=== PATIENT | female | born 1995 | race Caucasian/White ===

== ENCOUNTER 2022-09-18 16:40 | Inpatient (IN) | payer SELFPAY, OTHER ==
[2022-09-18] VITALS (33 sets, daily range): BP systolic 114–135; BP diastolic 53–86; PULSE 88–105; RESP 16–21; TEMP 36.7–37.5; O2SAT 91–99; BMI 30.7
[2022-09-18 17:12] LABS: Absolute Lymphocyte Count 1.02 X10^3/uL (0.83-4.51); Basophil# 0.06 X10^3/uL; Basophil% 0.2 % (0-1); Eosinophils% 5.8 % (0-5); Hemoglobin 15.1 g/dL (12.0-15.0); Lymphocyte # 1.02 X10^3/ul (0.83-4.51); Lymphocyte % 3.1 % (19-41); Mean Corp Hgb Conc 35.1 g/dL (32-36); Mean Corpuscular Hgb 30.1 pg (27.0-32.0); Mean Corpuscular Volume 85.7 fL (81-99); Mean Platelet Vol. 9.5 fl (6.2-12.0); Monocyte# 1.25 X10^3/uL; Monocyte% 3.8 % (0-10); NRBC Flagged by Analyzer 0 % (0-5); Neutrophil # 27.96 X10^3/uL (2.7-7.7); Neutrophil % 85.4 % (47-70); POSITIVE COUNT YES; POSITIVE DIFFERENTIAL YES; POSITIVE MORPHOLOGY YES; Platelet Count 300 K/mm3 (150-450); RBC Distribution Width CV 12.6 % (11.6-14.6); Red Blood Count 5.02 M/mm3 (4.2-5.4)
[2022-09-18] MEDS: Lactated Ringers 1,000 ML 999 ML IV (17:20)
--- NOTE | 2022-09-18 17:28 | HP.PCM.OB_ITS ---
HPI - General General Date of Admission: 09/18/22 Date of Service: 09/18/22 Chief Complaint: Pushing x 3 hours HPI Narrative MARION COLINDRES, is a 26 F at 42 wga by stated RUBEN (09/04/22) accompanied by her medicine and health service manager Barbara Soto after pushing x 3 hours with no delivery. She has been in labor since 5pm 09/17/22 with rupture of membranes at midnight. + FM Maternal Data Information Final RUBEN: 09/04/22 Gestational age: 42 weeks 0 days PFSH PFSH Medical History no medical history no medical history Home Medications [id number] 1 mg tablet 1 tab PO DAILY 09/18/22 [History Last Taken 09/17/22] Allergy/AdvReac Type Severity Reaction Status Date / Time bee venom protein (honey bee) Allergy Hives Verified 09/18/22 16:51 [bee stings] Family History Mother Hypertension Mother Diabetes Surgical History History of hip surgery Social History Smoking Status: Never smoker History Elective abortions Hx Para 0 Spontaneous abortions Hx # Term Pregnancies Ectopic pregnancies Hx # Pregnancies Multiple births # of living children NST FHR Rate Baby A Baseline: 150 Variability:: Minimal Accelerations:: 15 x 15 Decelerations:: Variable NST Reactive:: Yes FHR Category:: Category I Uterine Activity:: 3/10 min ROS Constitutional Constitutional: Denies fever(s) Eyes Eyes: Denies change in vision Neurologic Neurologic: Denies headache(s) Vital Signs Vital Signs Vital Signs: 09/18/22 17:02 09/18/22 17:02 09/18/22 17:03 Temperature Temperature Source Pulse Rate 94 99 Blood Pressure 129/86 H BP Systolic 129 BP Diastolic 86 Pulse Ox 09/18/22 17:03 09/18/22 17:02 09/18/22 17:03 Temperature Temperature Source Temporal Pulse Rate 97 Blood Pressure BP Systolic BP Diastolic Pulse Ox 91 09/18/22 17:03 09/18/22 17:02 Temperature 98.5 F Temperature Source Pulse Rate Blood Pressure BP Systolic BP Diastolic Pulse Ox 98 Weight Weight: 99.79 kg Body Mass Index (BMI) 30.7 Physical Exam GI soft to palpation, non-tender and non-distended Inspection: gravid Narrative: SVE 10/100/+1, OA Extremity normal to inspection, no calf tenderness and no pedal edema Neuro moves all extremities Neuro Narrative: no gross motor deficits Psych mental status grossly normal and affect normal Labs Labs Labs: Blood Type Pending Antibody Screen Pending Hct Pending Hgb Pending Syphilis Total Ab Pending Rubella IgG Antibody Pending Hep Bs Antigen Pending HIV 1&2 Antibody Pending Group B Strep DNA Pending Assessment & Plan (1) 42 weeks gestation of : PLAN: Rh positive Additional labs ordered (2) Labor abnormality, antepartum: COMMENT: Prolonged second stage PLAN: Cat II FHR, accelerations present and positive response to scalp stimulation. Patient not candidate for vacuum assistance at this time. Discussed with patient continued trial of labor with consideration of epidural and vacuum assistance as indicated for delivery versus section at this time. r/b HEIDI reviewed, as well as benefits and risks including but not limited to pain, bleeding/hemorrhage, infection, injury to surrounding organs, need for further surgery such as curettage or hysterectomy, scarring. Patient opts to proceed with section. Informed consent obtained.
[2022-09-18 17:34] LABS: White Blood Count 32.8 K/mm3 (4.4-11.0)
[2022-09-18 17:35] LABS: Differential Indicated SCAN CRITERIA MET
[2022-09-18] MEDS: Sodium Citrate/Citric Acid 30 ML UDC PO (17:36)
[2022-09-18] MEDS: Acetaminophen 500 MG Tablet 1000 MG PO ×2 (17:36→23:19)
[2022-09-18] MEDS: Cefazolin 2 GM in 0.9% Normal Saline 100 ML IV (18:27)
[2022-09-18 18:41] LABS: Differential Comment SCANNED
[2022-09-18 18:48] LABS: Group B Strep DNA By PCR Negative (Negative); Internal Control PASS; Probe Check PASS; Specimen Processing Control PASS
[2022-09-18] MEDS: Oxytocin 15 Units/NS 250ml 15 UNITS/250 ML IV.SOLN 83 UNITS IV (19:14)
--- NOTE | 2022-09-18 19:16 | EX.PCM.OBRPT ---
Assessment & Plan (1) delivery delivered: Maternal Data Information Gestational age: 42 weeks 0 days Doctor Who Attended Delivery: ReyLula Details Operative Information Date of Procedure: 09/18/22 Pre-Operative Diagnosis: 1. 42 weeks gestation 2. Prolonged second stage Post-Operative Diagnosis: 1. 42 weeks gestation 2. Prolonged second stage 3. Occiput posterior 4. Asynclitism Indications for : Failure to Progress Indications Narrative: 26yo G1 @ 42 wga brought in by her meat packager after pushing x 3 hours. She was counseled and opted to proceed with section for delivery. Informed consent was obtained. Classification: TRAMAINE Procedure Type: low transverse (with lower segment T extension) tool trouble shooter #1: Angelia Lundberg Type of Anesthesia: Spinal Anesthesiologist: Dayron Rush Antibiotic Given: Ancef 2 grams IV x1 and Zithromax 500 mg/5 mL X1 Drain: Reilly to straight drain Estimated Blood Loss: 700 ml Procedure Start Time: 18:17 Procedure Stop Time: 18:57 Time of Delivery: 18:26 Findings Description of Procedure: The patient was taken to the operating room and spinal analgesia was administered. She is placed in a dorsal supine position with FHR 156 bpm. The perineum and abdomen were prepped and draped in sterile fashion. And the spinal was found to be adequate. A Pfannenstiel incision was made using a scalpel and brought down to incise the subcutaneous tissue and rectus fascia at the midline. Subcutaneous tissue was bluntly dissected off the fascia laterally. The fascial incision was dissected laterally and cephalad using curved Recio scissors. The superior leaflet of the rectus fascia was grasped using Jolynn clamps and bluntly dissected and sharply dissected from the underlying rectus muscle. In a similar fashion the inferior rectus fascia was dissected from the underlying muscle. The rectus muscles were bluntly at the midline. The peritoneum was identified and entered [sharply]. The bladder blade was placed into the abdomen and the vesicouterine peritoneal fold identified. The fold was incised and a bladder flap created. Bladder blade was then repositioned to the abdomen. A low transverse hysterotomy was made using the [Metzenbaum scissors] to level of the membranes. The hysterotomy was extended bluntly cephalad and caudad. The membranes were then ruptured revealing clear fluid. The head was impacted in the pelvis. Manual head elevation transvaginally was performed by an medical record assistant and the head slowly elevated. A midline extension of the lower uterine segment was made with the bandage scissor. The head was brought to the level of the hysterotomy and the delivered revealing a [female] infant. The infant was stimulated and the cord was doubly clamped and cut. The infant was passed to awaiting [nursery personnel] and Pediatric Hospitalist. The placenta was [expressed] from the uterus and appeared intact on inspection. The uterus was cleared of debris and exteriorized. The hysterotomy was then repaired using 0 Vicryl running lock suture with a second suture used to reapproximate the extension. The extension did not meet the cervix. The posterior culdesac was cleared of debris. The bladder blade was removed and the uterus and adnexae were returned to the abdomen. Heide was placed for additional hemostasis. The peritoneum was reapproximated using 2-0 Vicryl running suture. The rectus fascia was closed using 0 Stratafix running suture. The subcutaneous tissue was reapproximated using 2-0 Vicryl. The skin was closed using 4-0 Monocryl subcuticularly. A Mepilex Silver occlusive dressing was placed over the incision. The fundus was firm. The patient was then transferred to the recovery room without complication. Sponge, instrument, and needle counts were correct ?2. Presentation: Positive for Vertex Amniotic Membrane Rupture Type: Spontaneous Time of Membrane Ruptured: 0000 09/18/22 Cord Vessel Description: 3 Vessels Cord Entanglement: None Nuchal Cord Compression: Without compression Cord Gases: ABG and VBG A Gender: Female (1 minute): 7 (5 minute): 9 Delayed Cord Clamping: No Complications Risks of Surgery Discussed w/Patient: Bleeding, Anesthesia Risks, Infection, Failure Rate of 1 to 2%, Injury to surrounding structure(s) including bowel and bladder and - Procedures Urinary/Genital [id number]: [id number] delivery+ Care([facility])
[2022-09-18] MEDS: Ketorolac 30 MG/ML Syringe IV (19:56)
[2022-09-18 20:35] LABS: HIV - WCH Non-Reactive (Nonreactive); Hepatitis B Surface Antigen Non-Reactive (Nonreactive); Hepatitis C Antibody Non-Reactive (Nonreactive); Rubella IgG Reactive (Nonreactive); Syphilis Antibodies Non-reactive
[2022-09-18 20:42] LABS: Bacteria 0 SEEN /hpf (None Seen); Mucous, Urine 0 SEEN /hpf (<or=2+)
--- NOTE | 2022-09-18 21:20 | NURSING ---
bedside report given to Steve Saavedra RN who is assuming care of pt at this time
[2022-09-18 22:07] LABS: Color, Urine Amber (Yellow); Glucose, Dipstick 50 mg/dl (Normal); Leukocyte Esterase-Dipstick 25 /ul (Negative); Nitrite-Dipstick Negative (Negative); Occult Blood-Urine 250 /ul (Negative); Protein-Dipstick 100 mg/dl (Negative); Specific Gravity, Urine 1.025 (1.002-1.030); Urine Bilirubin Dipstick Negative (Negative); Urine Clarity Turbid (Clear); Urine Urobilinogen Normal (Normal)
[2022-09-18 22:12] LABS: Ketone-Dipstick 150 mg/dl (Negative)
[2022-09-18] MEDS: Lactated Ringers 1,000 ML 100 ML IV (22:20)
[2022-09-18 22:37] LABS: Red Blood Cells-Urine > 100 SEEN /hpf (0-5)
[2022-09-18 22:38] LABS: White Blood Cells 5-10 SEEN /hpf (0-5)
[2022-09-18 22:43] LABS: Squamous Epithelial Cells - UA 5-10 SEEN /hpf (5-10)
[2022-09-19] VITALS (13 sets, daily range): BP systolic 109–131; BP diastolic 57–68; PULSE 93–113; RESP 16–18; TEMP 36.6–37.1; O2SAT 96–97
[2022-09-19] MEDS: Cefazolin 1 GM/50 ML BAG IV ×2 (00:49→08:19)
[2022-09-19] MEDS: Ketorolac 30 MG/ML Syringe IV ×3 (01:45→14:40)
[2022-09-19] MEDS: 0.9% Saline Lock 10 ML Syringe IV ×3 (04:51→14:40)
--- NOTE | 2022-09-19 04:52 | PN.OBGYN_ITS ---
Subjective Subjective Reports doing well. Not yet OOB. No flatus yet. Tolerates PO without nausea or vomiting. Denies heavy lochia. Pain is minimal. She is and notes latch is best with a nipple shield. Objective Data Objective Data Vital Signs: Vital Signs Temp Pulse Resp BP Pulse Ox O2 Del Method 98.0 F 93 17 109/57 L 96 Room Air 09/18/22 23:25 09/19/22 03:30 09/19/22 03:30 09/19/22 03:30 09/19/22 03:30 09/19/22 03:30 Oxygen Delivery Method Room Air Weight: 99.79 kg Body Mass Index (BMI) 30.7 Intake & Output: Intake and Output for Last 24 Hours 09/17/22 09/18/22 09/19/22 23:59 23:59 23:59 Intake Total 1211.13 / 1211.13 50 / 50 Output Total 330 / 330 300 / 300 Balance 881.13 / 881.13 -250 / -250 Lab / Micro Data Attestation: I reviewed the patient's lab results. Result Diagrams: 09/18/22 16:55 Labs: Laboratory Results - last 24 hr 09/18/22 16:55: WBC 32.8 H*, RBC 5.02, Hgb 15.1 H, Hct 43.0, MCV 85.7, MCH 30.1, MCHC 35.1, RDW Std Deviation 39.0, RDW Coeff of Maria Esther 12.6, Plt Count 300, MPV 9.5, Immature Gran % (Auto) 1.700 H, Neut % (Auto) 85.4 H, Lymph % (Auto) 3.1 L, [place] % (Auto) 3.8, Eos % (Auto) 5.8 H, Baso % (Auto) 0.2, Absolute Neuts (auto) 28.0 H, Absolute Lymphs (auto) 1.02, Nucleated RBC % 0, Differential Comment SCANNED, Diff Path Review January09/18/22 16:55: Syphilis Total Ab Non-reactive, Rubella IgG Antibody Reactive 09/18/22 16:55: Blood Type A POSITIVE, Antibody Screen NEGATIVE 09/18/22 16:55: Hep Bs Antigen Non-Reactive, Hepatitis C Antibody Non-Reactive, HIV 1&2 Antibody Non-Reactive 09/18/22 17:05: Group B Strep DNA Negative, Specimen Comment Not Reportable 09/18/22 20:20: Urine Color Margot, Urine Clarity Turbid, Urine pH 6.0, Ur Specific [place] 1.025, Urine Protein 100 H, Urine Glucose (UA) 50 H, Urine Ketones 150 A*, Urine Occult Blood 250 H, Urine Nitrite Negative, Urine Bilirubin Negative, Urine Urobilinogen Normal, Ur Leukocyte Esterase 25 H, Urine RBC > 100 SEEN, Urine WBC 5-10 SEEN, Ur Squamous Epith Cells 5-10 SEEN, Urine Bacteria 0 SEEN, Urine Mucus 0 SEEN Physical Exam Const alert, oriented x3 and no apparent distress Resp normal respiratory effort, normal air movement and clear to auscultation bilaterally Cardio regular rate, regular rhythm, S1 normal heart sound and S2 normal heart sound GI normal to inspection, nondistended, normoactive bowel sounds, soft to palpation, non-tender and non-distended Manual OB Exam: other lochia scant Uterus Palpation: uterus fundus firm (3 FW above umbilicus) Extremity no calf tenderness and no pedal edema Assessment & Plan (1) delivery delivered: PLAN: Routine postop care f/u CBC this am d/c barkley, ambulation encouraged
[2022-09-19 05:05] LABS: Hemoglobin 12.2 g/dL (12.0-15.0); Mean Corpuscular Hgb 28.8 pg (27.0-32.0); Mean Corpuscular Volume 87.3 fL (81-99); Mean Platelet Vol. 9.4 fl (6.2-12.0); Platelet Count 228 K/mm3 (150-450); RBC Distribution Width CV 12.8 % (11.6-14.6); RBC Distribution Width SD 40.2 fl (35.1-43.9); Red Blood Count 4.24 M/mm3 (4.2-5.4); White Blood Count 21.8 K/mm3 (4.4-11.0)
[2022-09-19] MEDS: Acetaminophen 500 MG Tablet 1000 MG PO ×3 (05:23→17:31)
--- NOTE | 2022-09-19 05:46 | NURSING ---
Duramorph checks documented under vital sign tab- only q12h duramorph
[2022-09-19] MEDS: Prenatal Vits Tablet 1 TABLET PO (11:00)
[2022-09-19] MEDS: Senna/Docusate Sodium 1 Tablet PO (11:00)
--- NOTE | 2022-09-19 17:10 | NURSING ---
Pt barkley catheter had been removed at 0505 this AM. Pt tried twice this morning to unitate without success and was informed of st. cath. option/order. She decided at 1230 that she would like the st[address] cath. and was st. cathed. for 700cc concentrated urine. Encouraged to drink more water.
--- NOTE | 2022-09-19 17:14 | NURSING ---
pt at this time has tried again to void without success. Now encouraged to try when she's in the shower.
[2022-09-19] MEDS: Ibuprofen 600 MG Tablet PO (20:08)
[2022-09-20] MEDS: Acetaminophen 500 MG Tablet 1000 MG PO ×3 (00:16→11:42)
[2022-09-20 02:37] VITALS: BP 119/72; PULSE 85
[2022-09-20 02:38] VITALS: BP 119/72; PULSE 85; RESP 16; TEMP 36.4
[2022-09-20] MEDS: Ibuprofen 600 MG Tablet PO ×2 (02:39→08:24)
[2022-09-20 06:23] LABS: Absolute Lymphocyte Count 1.81 X10^3/uL (0.83-4.51); Absolute Neutrophil Count 15.8 X10^3/uL (2.0-7.7); Basophil# 0.04 X10^3/uL; Basophil% 0.2 % (0-1); Eosinophil# 0.45 X10^3/uL; Eosinophils% 2.3 % (0-5); Hematocrit 33.2 % (37-47); Hemoglobin 11.1 g/dL (12.0-15.0); Lymphocyte # 1.81 X10^3/ul (0.83-4.51); Lymphocyte % 9.4 % (19-41); Mean Corp Hgb Conc 33.4 g/dL (32-36); Mean Corpuscular Hgb 30.1 pg (27.0-32.0); Mean Platelet Vol. 9.3 fl (6.2-12.0); Monocyte# 0.99 X10^3/uL; Monocyte% 5.1 % (0-10); NRBC Flagged by Analyzer 0 % (0-5); Neutrophil # 15.76 X10^3/uL (2.7-7.7); Neutrophil % 81.8 % (47-70); Platelet Count 210 K/mm3 (150-450); RBC Distribution Width SD 42.4 fl (35.1-43.9); Red Blood Count 3.69 M/mm3 (4.2-5.4); White Blood Count 19.3 K/mm3 (4.4-11.0)
--- NOTE | 2022-09-20 06:32 | PN.OBGYN_ITS ---
Subjective Subjective Rufina is sore this morning, but reports pain is manageable. She is out of bed, ambulating without difficulty. Passing flatus. No bowel movement yet. Voiding. Denies headache, vision changes, shortnes of breath or chest pain. She continues nursing with [facility]. Objective Data Objective Data Vital Signs: Vital Signs Temp Pulse Resp BP Pulse Ox O2 Del Method 97.6 F L 85 16 119/72 97 Room Air 09/20/22 02:38 09/20/22 02:38 09/20/22 02:38 09/20/22 02:38 09/19/22 20:05 09/20/22 02:38 Oxygen Delivery Method Room Air Weight: 99.79 kg Body Mass Index (BMI) 30.7 Intake & Output: Intake and Output for Last 24 Hours 09/18/22 09/19/22 09/20/22 23:59 23:59 23:59 Intake Total 1211.13 / 1211.13 753.33 / 753.33 Output Total 330 / 330 2250 / 2250 Balance 881.13 / 881.13 -1496.67 / -1496.67 Lab / Micro Data Result Diagrams: 09/20/22 06:08 Labs: Laboratory Results - last 24 hr 09/20/22 04:35: WBC Cancelled, Corrected WBC Cancelled, RBC Cancelled, Hgb Cancelled, Hct Cancelled, MCV Cancelled, MCH Cancelled, MCHC Cancelled, RDW Std Deviation Cancelled, RDW Coeff of Maria Esther Cancelled, Plt Count Cancelled, MPV Cancelled, Immature Gran % (Auto) Cancelled, Neut % (Auto) Cancelled, Lymph % (Auto) Cancelled, [place] % (Auto) Cancelled, Eos % (Auto) Cancelled, Baso % (Auto) Cancelled, Absolute Neuts (auto) Cancelled, Absolute Lymphs (auto) Cancelled, Total Counted Cancelled, Neutrophils % (Manual) Cancelled, Band Neutrophils % Cancelled, Lymphocytes % (Manual) Cancelled, Monocytes % (Manual) Cancelled, Eosinophils % (Manual) Cancelled, Basophils % (Manual) Cancelled, Metamyelocytes % Cancelled, Myelocytes % Cancelled, Promyelocytes % Cancelled, Blast Cells % Cancelled, Plasma Cell % (Manual) Cancelled, Other Cells % Cancelled, Nucleated RBC % Cancelled, Nucleated RBCs/100 WBC Cancelled, Differential Comment Cancelled, Diff Path Review Cancelled, Hypersegmented Neuts Cancelled, Atypical Lymphocytes Cancelled, Reactive Lymphocytes Cancelled, Smudge Cells Cancelled, Toxic Granulation Cancelled, Toxic Vacuolation Cancelled, Dohle Bodies Cancelled, Tessa Rods Cancelled, Platelet Estimate Cancelled, Plt Morphology Comment Cancelled, RBC Morphology Cancelled, Polychromasia Cancelled, Hypochromasia Cancelled, Poikilocytosis Cancelled, Basophilic Stippling Cancelled, Anisocytosis Cancelled, Microcytosis Cancelled, Macrocytosis Cancelled, Spherocytes Cancelled, Sickle Cells Cancelled, Target Cells Cancelled, Tear Drop Cells Cancelled, Ovalocytes Cancelled, Stomatocytes Cancelled, [place] Bodies Cancelled, [place] Cells Cancelled, Bite Cells Cancelled, Crenated Cell Cancelled, Acanthocytes (Spur) Cancelled, Rouleaux Can celled, Schistocytes Cancelled 09/20/22 06:08: WBC 19.3 H, RBC 3.69 L, Hgb 11.1 L, Hct 33.2 L, MCV 90.0, MCH 30.1, MCHC 33.4, RDW Std Deviation 42.4, RDW Coeff of Maria Esther 13.0, Plt Count 210, MPV 9.3, Immature Gran % (Auto) 1.200 H, Neut % (Auto) 81.8 H, Lymph % (Auto) 9.4 L, [place] % (Auto) 5.1, Eos % (Auto) 2.3, Baso % (Auto) 0.2, Absolute Neuts (auto) 15.8 H, Absolute Lymphs (auto) 1.81, Nucleated RBC % 0 Physical Exam Const alert, oriented x3 and no apparent distress Resp normal respiratory effort, normal air movement and clear to auscultation bilaterally Cardio regular rate, regular rhythm, S1 normal heart sound and S2 normal heart sound GI normal to inspection, nondistended, normoactive bowel sounds, soft to palpation, non-tender and non-distended GI Narrative: incisional dressing c/d/i Manual OB Exam: other lochia scant Uterus Palpation: uterus fundus firm Extremity no calf tenderness Extremity Narrative: trace pedal edema bilaterally Assessment & Plan (1) delivery delivered: PLAN: POD#2 s/p PLTCS doing well Rh positive Routine postop care d/c home later today
--- NOTE | 2022-09-20 06:35 | PCM.DC.SUM ---
Providers Date of Admission: 09/18/22 Date of Discharge: 09/20/22 Primary Care Physician: No Primary Care Phys Reason For Visit: LABOR AND DELIVERY Diagnosis Discharge Diagnosis (1) delivery delivered: Status: Acute Code(s): O82 - Encounter for delivery without indication Plan: POD#2 s/p PLTCS doing well Rh positive Routine postop care d/c home later today Medications at Discharge Home Medications [id number] 1 mg tablet 1 tab PO DAILY 09/18/22 ibuprofen 600 mg tablet 600 mg PO Q8H PRN PRN pain #30 tabs 09/20/22 oxycodone 5 mg tablet 5 mg PO Q6H PRN severe 3 days #8 tabs 09/20/22 Hospital Course Operations section Procedures None Summary of Care Provided Hospital Course: 26yo G1 admitted at 42weeks gestation for prolonged second stage. She underwent a section. Her postoperative course was unremarkable and patient was discharged to home on postop day #2. Physical Exam Const alert, oriented x3 and no apparent distress Resp normal respiratory effort, normal air movement and clear to auscultation bilaterally Cardio regular rate, regular rhythm, S1 normal heart sound and S2 normal heart sound GI normal to inspection, nondistended, normoactive bowel sounds, soft to palpation, non-tender and non-distended GI Narrative: incisional dressing c/d/i Manual OB Exam: other lochia scant Uterus Palpation: uterus fundus firm Extremity no calf tenderness and no pedal edema Psych mental status grossly normal Weight / BMI Weight Weight: 99.79 kg Body Mass Index (BMI) 30.7 ABG / Lab / Microbiology Data Result Diagrams: 09/20/22 06:08 Laboratory: Laboratory Results - last 24 hr 09/20/22 04:35: WBC Cancelled, Corrected WBC Cancelled, RBC Cancelled, Hgb Cancelled, Hct Cancelled, MCV Cancelled, MCH Cancelled, MCHC Cancelled, RDW Std Deviation Cancelled, RDW Coeff of Maria Esther Cancelled, Plt Count Cancelled, MPV Cancelled, Immature Gran % (Auto) Cancelled, Neut % (Auto) Cancelled, Lymph % (Auto) Cancelled, [place] % (Auto) Cancelled, Eos % (Auto) Cancelled, Baso % (Auto) Cancelled, Absolute Neuts (auto) Cancelled, Absolute Lymphs (auto) Cancelled, Total Counted Cancelled, Neutrophils % (Manual) Cancelled, Band Neutrophils % Cancelled, Lymphocytes % (Manual) Cancelled, Monocytes % (Manual) Cancelled, Eosinophils % (Manual) Cancelled, Basophils % (Manual) Cancelled, Metamyelocytes % Cancelled, Myelocytes % Cancelled, Promyelocytes % Cancelled, Blast Cells % Cancelled, Plasma Cell % (Manual) Cancelled, Other Cells % Cancelled, Nucleated RBC % Cancelled, Nucleated RBCs/100 WBC Cancelled, Differential Comment Cancelled, Diff Path Review Cancelled, Hypersegmented Neuts Cancelled, Atypical Lymphocytes Cancelled, Reactive Lymphocytes Cancelled, Smudge Cells Cancelled, Toxic Granulation Cancelled, Toxic Vacuolation Cancelled, Dohle Bodies Cancelled, Tessa Rods Cancelled, Platelet Estimate Cancelled, Plt Morphology Comment Cancelled, RBC Morphology Cancelled, Polychromasia Cancelled, Hypochromasia Cancelled, Poikilocytosis Cancelled, Basophilic Stippling Cancelled, Anisocytosis Cancelled, Microcytosis Cancelled, Macrocytosis Cancelled, Spherocytes Cancelled, Sickle Cells Cancelled, Target Cells Cancelled, Tear Drop Cells Cancelled, Ovalocytes Cancelled, Stomatocytes Cancelled, [place] Bodies Cancelled, Aditya Cells Cancelled, Bite Cells Cancelled, Crenated Cell Cancelled, Acanthocytes (Spur) Cancelled, Rouleaux Cancelled, Schistocytes Cancelled 09/20/22 06:08: WBC 19.3 H, RBC 3.69 L, Hgb 11.1 L, Hct 33.2 L, MCV 90.0, MCH 30.1, MCHC 33.4, RDW Std Deviation 42.4, RDW Coeff of Maria Esther 13.0, Plt Count 210, MPV 9.3, Immature Gran % (Auto) 1.200 H, Neut % (Auto) 81.8 H, Lymph % (Auto) 9.4 L, [place] % (Auto) 5.1, Eos % (Auto) 2.3, Baso % (Auto) 0.2, Absolute Neuts (auto) 15.8 H, Absolute Lymphs (auto) 1.81, Nucleated RBC % 0 D/C Instructions Discharge Diet: No restrictions Discharge Activity: Return to Normal Activity, May Shower and May Take a Tub Bath (No tub bath for 2 weeks) May resume sexual activity in: 4-6 weeks Lifting Restricted to (Lbs): 10 Call your doctor if your incision/area has: Continuous Slow Oozing, Increased Pain/ Swelling, Increased Redness, Foul Smelling Discharge and Swelling at the incision site Call your doctor if you observe: Fever of 101 or Higher, Inability to urinate, Inability to have a bowel movement, Using more than 1 pad per hour, Shortness of breath, Chest pain, Increased palpitations (irregular heartbeat), Calf discomfort and Uncontrolled pain Remove Dressing in: 3 days Cleanse incision/area with: Soap & Water Please Follow Up With: Suzy Polanco MD When: 1-2 weeks for incision check Meaningful Use Info Meaningful Use Diagnoses (Choose all that apply): None applicable Discharge Plan Admission Admit Date/Time: 09/18/22 16:40 Primary Reason for Your Visit: section Attending Provider: Suzy Polanco Primary Care Provider: Care Physician,No Primary Instructions Patient Instructions: Section Dc Discharge Orders/Prescriptions Prescriptions: New ibuprofen 600 mg Tablet 600 mg PO Q8H PRN PRN (Reason: pain) Qty: 30 0RF oxycodone 5 mg Tablet 5 mg PO Q6H PRN 3 Days Qty: 8 0RF Continued [id number]-job-[id number]-FA 1 mg Tablet 1 tab PO DAILY Referrals / Follow Up: Care Physician,No Primary [Primary Care Provider] - Disposition Disposition (needs filled in before D/C Order can be placed): Home, Self Care Charges/Coding Procedures Urinary/Genital [id number]: [id number] delivery+ Care([facility])
[2022-09-20 08:25] VITALS: BP 115/69; PULSE 82; RESP 15; TEMP 36.4; O2SAT 98
[2022-09-20 08:27] VITALS: BP 115/69; PULSE 86
[2022-09-20] MEDS: Senna/Docusate Sodium 1 Tablet PO (09:13)
--- NOTE | 2022-09-20 11:05 | NURSING ---
MOB reported to this RN that she is going to follow up with DAVID Soto at [facility] for her initial OB appointment. She reported to this RN that she is only going to follow up with Dr. Suzy Forbes if she is having incisional troubles and she reports that she also made Dr. Suzy Forbes aware of this.
[2022-09-20] MEDS: Prenatal Vits Tablet 1 TABLET PO (11:42)
[2022-09-20 12:47] VITALS: BP 127/73; PULSE 91; O2SAT 98
[2022-09-20 12:48] VITALS: BP 127/73; PULSE 91; RESP 15; TEMP 36.6; O2SAT 98
[2022-09-21 09:33] LABS: Pathologist Review Reviewed
[2022-09-22 04:07] LABS: Chlamydia By Nucleic Acid AMP Negative (Negative)
[2022-09-23 18:24] LABS: Gonococcus By Nucleic Acid AMP Negative (Negative)
== END 2022-09-20 13:45 | disposition home or self-care (01) | DRG 788 ==
PROVIDERS: Admitting Provider Obstetrics & Gynecology; Visit Provider Obstetrics & Gynecology
DX: O63.1 Prolonged second stage (of labor) (principal); O69.2XX0 Labor and delivery complicated by other cord entanglement, with compression, not applicable or unspecified; Z37.0 Single live birth; Z3A.42 42 weeks gestation of pregnancy
CPT/HCPCS: 59025; 59050; 81001; 85025; 85027; 86703; 86762; 86780; 86803; 86850; 86900; 86901; 87081; 87340; 87491; 87591; 87653; 99221; J7120; A4216; G0378

== ENCOUNTER → 2023-09-04 | Outpatient (CLI) | payer OTHER, SELFPAY ==
[2023-09-04 10:10] LABS: Absolute Lymphocyte Count 1.63 X10^3/uL (0.83-4.51); Absolute Neutrophil Count 6.1 X10^3/uL (2.0-7.7); Basophil# 0.03 X10^3/uL; Basophil% 0.4 % (0-1); Eosinophil# 0.05 X10^3/uL; Eosinophils% 0.6 % (0-5); Hematocrit 40.9 % (37-47); Hemoglobin 13.2 g/dL (12.0-15.0); Lymphocyte # 1.63 X10^3/ul (0.83-4.51); Lymphocyte % 19.5 % (19-41); Mean Corp Hgb Conc 32.3 g/dL (32-36); Mean Corpuscular Hgb 27.8 pg (27.0-32.0); Mean Corpuscular Volume 86.3 fL (81-99); Mean Platelet Vol. 9.9 fl (6.2-12.0); Monocyte# 0.55 X10^3/uL; Monocyte% 6.6 % (0-10); NRBC Flagged by Analyzer 0 % (0-5); Neutrophil # 6.09 X10^3/uL (2.7-7.7); Neutrophil % 72.5 % (47-70); Platelet Count 303 K/mm3 (150-450); RBC Distribution Width CV 11.9 % (11.6-14.6); RBC Distribution Width SD 37.8 fl (35.1-43.9); Red Blood Count 4.74 M/mm3 (4.2-5.4); White Blood Count 8.4 K/mm3 (4.4-11.0)
[2023-09-04 11:15] LABS: HIV - WCH Non-Reactive (Nonreactive); Hepatitis B Surface Antigen Non-Reactive (Nonreactive); Hepatitis C Antibody Non-Reactive (Nonreactive); Rubella IgG Reactive (Nonreactive); Syphilis Antibodies Non-reactive
[2023-09-06 21:07] LABS: Chlamydia By Nucleic Acid AMP Negative (Negative); Gonococcus By Nucleic Acid AMP Negative (Negative)
[2023-09-08 18:29] LABS: HPV Reflexed? NOT INDICATED
== END | disposition home or self-care (01) ==
PROVIDERS: Referring Provider Obstetrics & Gynecology; Visit Provider Obstetrics & Gynecology
DX: Z34.90 Encounter for supervision of normal pregnancy, unspecified, unspecified trimester (principal)
CPT/HCPCS: 36415; 85025; 86703; 86762; 86780; 86803; 86850; 86900; 86901; 87340; 87491; 87591; 88175; G0145

== ENCOUNTER → 2023-11-22 | Outpatient (CLI) | payer SELFPAY, OTHER ==
--- NOTE | 2023-11-22 15:24 | US_ITS ---
INDICATION: anatomy, cervical length EXAMINATION: Ultrasound US OB Greater Than 14 Weeks TECHNIQUE: Transabdominal and transvaginal ultrasound was performed. Garner scale and color Doppler technique with spectral analysis. COMPARISON: No relevant prior comparison study available LMP: Unknown. Beta-hCG: Unknown. Provided EGA: None. FINDINGS: INTRAUTERINE GESTATION(s): Single. BIOMETRIC MEASUREMENTS: * BIPARIETAL DIAMETER: 4.84 cm which corresponds to 20 weeks, 5 days. * HEAD CIRCUMFERENCE: 17.87 cm which corresponds to 20 weeks, 2 days. * ABDOMINAL CIRCUMFERENCE: 15.86 cm which corresponds to 21 weeks, 0 days. * FEMORAL LENGTH: 3.24 cm which corresponds to 20 weeks, 1 day. ESTIMATED GESTATIONAL AGE: 20 weeks, 2 days ESTIMATED DUE DATE (RUBEN): 04/08/2024 HEART MOTION is 15 bpm. AMNIOTIC FLUID INDEX (DOYLE): Subjectively within normal limits ESTIMATED WEIGHT: 366 Percentile 79%. BIOPHYSICAL PROFILE (BPP): Not assessed. PRESENTATION: Cephalic PLACENTA: Posterior. There is no placenta previa or abruption. CERVIX: The cervix is closed. MATERNAL OVARIES: No adnexal masses. FREE FLUID: None. IMPRESSION: Single live intrauterine of 20 weeks, 2 days No acute abnormality. Electronically Signed: Sanjeev Edwards MD at 0:23 EST , INDICATION: anatomy, cervical length EXAMINATION: Ultrasound US OB Greater Than 14 Weeks TECHNIQUE: Transabdominal and transvaginal ultrasound was performed. Garner scale and color Doppler technique with spectral analysis. COMPARISON: No relevant prior comparison study available LMP: Unknown. Beta-hCG: Unknown. Provided EGA: None. FINDINGS: INTRAUTERINE GESTATION(s): Single. BIOMETRIC MEASUREMENTS: * BIPARIETAL DIAMETER: 4.84 cm which corresponds to 20 weeks, 5 days. * HEAD CIRCUMFERENCE: 17.87 cm which corresponds to 20 weeks, 2 days. * ABDOMINAL CIRCUMFERENCE: 15.86 cm which corresponds to 21 weeks, 0 days. * FEMORAL LENGTH: 3.24 cm which corresponds to 20 weeks, 1 day. ESTIMATED GESTATIONAL AGE: 20 weeks, 2 days ESTIMATED DUE DATE (RUBEN): 04/08/2024 HEART MOTION is 15 bpm. AMNIOTIC FLUID INDEX (DOYLE): Subjectively within normal limits ESTIMATED WEIGHT: 366 Percentile 79%. BIOPHYSICAL PROFILE (BPP): Not assessed. PRESENTATION: Cephalic PLACENTA: Posterior. There is no placenta previa or abruption. CERVIX: The cervix is closed. MATERNAL OVARIES: No adnexal masses. FREE FLUID: None. US/OB Anatomy w/ Transvaginal
== END | disposition home or self-care (01) ==
LOC: US 15:22
PROVIDERS: Referring Provider Advanced Practice Midwife; Visit Provider Advanced Practice Midwife
DX: O09.90 Supervision of high risk pregnancy, unspecified, unspecified trimester (principal); Z3A.00 Weeks of gestation of pregnancy not specified
CPT/HCPCS: 76805; 76817

== ENCOUNTER → 2024-01-17 | Outpatient (CLI) | payer OTHER, SELFPAY ==
[2024-01-17 14:26] LABS: Absolute Lymphocyte Count 1.81 X10^3/uL (0.83-4.51); Absolute Neutrophil Count 7.2 X10^3/uL (2.0-7.7); Basophil# 0.03 X10^3/uL; Basophil% 0.3 % (0-1); Eosinophil# 0.08 X10^3/uL; Eosinophils% 0.8 % (0-5); Hematocrit 36.5 % (37-47); Hemoglobin 11.8 g/dL (12.0-15.0); Lymphocyte # 1.81 X10^3/ul (0.83-4.51); Lymphocyte % 18.5 % (19-41); Mean Corp Hgb Conc 32.3 g/dL (32-36); Mean Corpuscular Volume 86.5 fL (81-99); Mean Platelet Vol. 9.6 fl (6.2-12.0); Monocyte# 0.61 X10^3/uL; Monocyte% 6.2 % (0-10); NRBC Flagged by Analyzer 0 % (0-5); Neutrophil # 7.21 X10^3/uL (2.7-7.7); Neutrophil % 73.7 % (47-70); Platelet Count 271 K/mm3 (150-450); RBC Distribution Width CV 12.4 % (11.6-14.6); RBC Distribution Width SD 38.9 fl (35.1-43.9); Red Blood Count 4.22 M/mm3 (4.2-5.4); White Blood Count 9.8 K/mm3 (4.4-11.0)
[2024-01-17 14:51] LABS: Glucose Challenge Gest 1H 50g 117 mg/dL (70-140)
[2024-01-17 15:22] LABS: HIV - WCH Non-Reactive (Nonreactive); Syphilis Antibodies Non-reactive
== END | disposition home or self-care (01) ==
PROVIDERS: Referring Provider Obstetrics & Gynecology; Visit Provider Obstetrics & Gynecology
DX: O34.219 Maternal care for unspecified type scar from previous cesarean delivery (principal); Z3A.00 Weeks of gestation of pregnancy not specified
CPT/HCPCS: 36415; 82950; 85025; 86703; 86780

== ENCOUNTER → 2024-03-15 | Outpatient (CLI) | payer OTHER, SELFPAY | END | disposition home or self-care (01) | PROVIDERS: Referring Provider Obstetrics & Gynecology; Visit Provider Obstetrics & Gynecology | DX: O09.93 Supervision of high risk pregnancy, unspecified, third trimester (principal); Z3A.00 Weeks of gestation of pregnancy not specified | CPT/HCPCS: 87081 ==

== ENCOUNTER 2024-04-04 05:10 | Inpatient (IN) | payer SELFPAY, OTHER ==
[2024-04-04] VITALS (21 sets, daily range): BP systolic 98–128; BP diastolic 55–75; PULSE 67–97; RESP 15–18; TEMP 36–36.8; O2SAT 94–99; BMI 32.5
[2024-04-04] MEDS: Lactated Ringers 1,000 ML 999 ML IV (05:30)
[2024-04-04 05:42] LABS: Absolute Lymphocyte Count 2.08 X10^3/uL (0.83-4.51); Basophil# 0.04 X10^3/uL; Basophil% 0.4 % (0-1); Eosinophil# 0.14 X10^3/uL; Eosinophils% 1.3 % (0-5); Hematocrit 35.3 % (37-47); Hemoglobin 11.5 g/dL (12.0-15.0); Lymphocyte # 2.08 X10^3/ul (0.83-4.51); Lymphocyte % 18.8 % (19-41); Mean Corp Hgb Conc 32.6 g/dL (32-36); Mean Corpuscular Hgb 27.5 pg (27.0-32.0); Mean Corpuscular Volume 84.4 fL (81-99); Monocyte# 0.64 X10^3/uL; Monocyte% 5.8 % (0-10); NRBC Flagged by Analyzer 0 % (0-5); Neutrophil # 8.04 X10^3/uL (2.7-7.7); Neutrophil % 72.7 % (47-70); Platelet Count 269 K/mm3 (150-450); RBC Distribution Width CV 12.9 % (11.6-14.6); RBC Distribution Width SD 39.2 fl (35.1-43.9); Red Blood Count 4.18 M/mm3 (4.2-5.4); White Blood Count 11.1 K/mm3 (4.4-11.0)
[2024-04-04] MEDS: Acetaminophen 500 MG Tablet 1000 MG PO ×4 (05:43→17:41)
[2024-04-04] MEDS: Lactated Ringers 1,000 ML 150 ML IV (06:46)
[2024-04-04] MEDS: Sodium Citrate/Citric Acid 30 ML UDC PO (06:46)
--- NOTE | 2024-04-04 07:21 | HP.PCM.OB_ITS ---
HPI - General General Date of Admission: 04/04/24 HPI Narrative MARION COLINDRES, is a 28 y/o @ 39 weeks 1 day who presents to L&D for a repeat scheduled section. Maternal Data Information RUBEN Calculator Estimated Delivery Date Method Current WG Current Estimate 04/10/24 LMP (Certain) 39w 1d Other Estimates 04/09/24 Ultrasound #1 39w 2d PFSH PFS Medical History (Updated 04/04/24 @ 05:30 by Nicole Rod) depression Home Medications ?Medication ?Instructions ?Recorded ?Last Taken ?Type multivitamin 1 tab PO DAILY 02/29/24 Unknown History Allergy/AdvReac Type Severity Reaction Status Date / Time bee venom protein (honey Allergy Hives Verified 04/04/24 05:44 bee) (bee stings) Family History Mother Hypertension Mother Diabetes Brother Autism Surgical History S/P History of tonsillectomy History of hip surgery Social History adopted: No household members: spouse and children number of children: 1 current occupational status: unemployed current occupation: [employer] pets and animals: No history of recent travel: Yes ([place]) out of state: Yes out of country: No Smoking Status: Never smoker alcohol intake: current alcohol intake frequency: holidays/special occasions only details: NOT WHILE substance use type: does not use diet: gluten free and lactose free well-balanced diet: about half the time caffeine: No eating out: rarely or never during the past year weight has: remained stable what type of physical activity do you participate in: none kasi/worship: Alevism seatbelt use: sometimes do you feel safe at home: Yes additional social history: Massimo- [employer] History 2 Elective abortions Hx Para 1 Spontaneous abortions Hx # Term Pregnancies Ectopic pregnancies Hx # Pregnancies Multiple births # of living children 1 Past Pregnancies Del. Date Name GA/Weeks Outcome Route Bth Weight Infant Gen Labor Lgth Anesthesia Del Locatn Provider FOB 09/18/22 Franca Tomas 42 live - full term 9#2oz Female 24 Hr none [facility] Dr. Len Keys Delivery Date: 09/18/22 Last Updated by: Ana Ibarra Unable to push out. Hip surgery at 13yo. Unable to do vaginal . Visit Details Expected Delivery Route/Plan for rpt section Plans Covid status: declines Flu vaccine: declines Tdap vaccine: declines Rhogam: NA LARC form signed: yes movement and labor precautions reviewed. Problem list reviewed and updated with the most current plan of care details and appropriate orders placed. Relevant counseling for the gestational age provided. Continue routine care and follow up unless otherwise noted in visit notes/problem list details OB Flowsheet Initial Weight: Not Recorded Date -?-?-?-?-?-?-?-?-?-?-?-?- EGA Weight BP Urine Prot -?-?-?-?-?-?-?-?-?-?-?-?- Glucose FHR FuHt Pres Dilation -?-?-?-?-?-?-?-?-?-?-?-?- Effaced St Visit Note 09/04/23 -?-?-?-?-?-?-?-?-?-?-?-?- 8w 5d 219 lb 4 oz 132/94 -?-?-?-?-?-?-?-?-?-?-?-?- 163 -?-?-?-?-?-?-?-?-?-?-?-?- JV- CRL is consi stent with LMP. declines nipt and carrier. wants rpt section due to h/o pelvic surgery. 10/02/23 -?-?-?-?-?-?-?-?-?-?-?-?- 12w 5d 219 lb 130/77 -?-?-?-?-?-?-?-?-?-?-?-?- 155 -?-?-?-?-?-?-?-?--?-?-?-?- Kw-small amt of bleeding over the last 2 mornings. no cramping. labs reviewed. anatomy US ordered. no concerns today. 10/31/23 -?-?-?-?-?-?-?-?-?-?-?-?- 16w 6d 213 lb 120/82 Negative -?-?-?-?-?-?-?-?-?-?-?-?- Negative 138 -?-?-?-?-?-?-?-?-?-?-?-?- MH-No VB. No flu tters yet. [facility] anatomy US scheduled. Denies concerns 11/30/23 -?-?-?-?-?-?-?-?-?-?-?-?- 21w 1d 211 lb 111/71 Negative -?-?-?-?-?-?-?-?-?-?-?-?- Negative 140 -?-?-?-?-?-?-?-?-?--?-?-?- SM- no vb lof go od fm no regular ctx 12/18/23 -?-?-?-?-?-?-?-?-?-?-?-?- 23w 5d 219 lb 8 oz 109/69 Nega tive -?-?-?-?-?-?-?-?-?-?-?-?- Negative 150 -?-?-?-?-?-?-?-?-?-?-?-?- KW- no vb/sana hand. good fm. has supplies for 28 week labs. 01/17/24 -?-?-?-?-?-?-?-?-?-?-?-?- 28w 0d 220 lb 114/68 Negative -?-?-?-?-?-?-?-?-?-?-?-?- Negative 145 28 -?-?-?-?-?-?-?-?-?-?-?-?- MH-No VB, LOF. G ood FM. 28 wk labs, larc. Declines tdap 01/29/24 -?-?-?-?-?-?-?-?-?-?-?-?- 29w 5d 222 lb 121/72 Negative -?-?-?-?-?-?-?-?-?-?-?-?- Negative 140 28 -?-?-?-?-?-?-?-?-?-?-?-?- JV- rpt cs reque st sent. plan for 39 weeks. no complaints. 02/14/24 -?-?-?-?-?-?-?-?-?-?-?-?- 32w 0d 226 lb 111/71 -?-?-?-?-?-?-?-?-?-?-?-?- 140 31 -?-?-?-?-?-?-?-?-?-?-?-?- KW- no vb/lof/ct x. good fm. 02/29/24 -?-?-?-?-?-?-?-?-?-?-?-?- 34w 1d 227 lb 129/81 Negative -?-?-?-?-?-?-?-?-?-?-?--?- Negative 150 33 -?-?-?-?-?-?-?-?-?-?-?-?- SM- no vb lof go od fm no regular ctx 03/15/24 -?-?-?-?-?-?-?-?-?-?-?-?- 36w 2d 230 lb 120/73 -?-?-?-?-?-?-?-?-?-?-?-?- 150 36 -?-?-?-?-?-?-?-?-?-?-?-?- Sm- no vb lof go od fm nore gular ctx gbs done 03/22/24 -?-?-?-?-?-?-?--?-?-?-?-?- 37w 2d 234 lb 2 oz 109/68 Nega tive -?-?-?-?-?-?-?-?-?-?-?-?- Negative 145 38 -?-?-?-?-?-?-?-?-?-?-?-?- SM- no vb lof go od fm no reuglar ctx 03/27/24 -?-?-?-?-?-?-?-?-?-?-?-?- 38w 0d 234 lb 107/71 Negative -?-?-?-?-?-?-?-?-?-?-?-?- Negative 125 38 -?-?-?-?-?-?-?-?-?--?-?-?- KW- no vb/lof/ct x. good fm. C/S scheduled for next week. 04/01/24 -?-?-?-?-?-?-?-?-?-?-?-?- 38w 5d 236 lb 4 oz 138/75 Nega tive -?-?-?-?-?-?-?--?-?-?-?-?- Negative 161 39 -?-?-?-?-?-?-?-?-?-?-?-?- JV-no lof, vagin al bleeding, or dec fm. consent signed for surgery. risks, benefits, alternatives discussed. ROS Constitutional Constitutional: Denies change in weight, fatigue, fever(s), headache(s), poor appetite or weakness Eyes Eyes: Denies blurry vision, change in vision, seeing flashes or spots in vision ENT HEENT: Denies dizziness, headache(s), loss taste/smell or sore throat Cardiovascular Cardiovascular: Denies chest pain, dizziness, dyspnea, irregular heart rhythm, leg edema, palpitations, rapid heart rate or vomiting Respiratory/Chest Respiratory/Chest: Denies chest tightness, cough, dyspnea or breast pain Gastrointestinal Gastrointestinal: Denies abdominal pain, anorexia, constipation, cramping, diarrhea, hemorrhoids, vomiting or weight changes Genitourinary Genitourinary: Denies dysuria, flank pain, genital lesions, genital pain, urinary frequency or urinary urgency Musculoskeletal Musculoskeletal: Denies back pain, difficulty walking, joint pain, limited range of motion, muscle cramps or numbness Integumentary Integumentary: Denies lesions or unusual bruising Neurologic Neurologic: Denies abnormal movements, abnormal speech, dizziness, numbness, seizure-like activity or syncope Psychiatric Psychiatric: Denies anxiety, behavioral changes, change in appetite, change in libido, cognitive impairment, confusion, depression, difficulty concentrating, hallucinations or suicidal thoughts Endocrine Endocrinology: Denies excessive sweating, polydipsia or polyuria Hematologic/Lymphatic Hematologic/Lymphatic: Denies easy bleeding, easy bruising or lymphadenopathy Allergic/Immunologic Allergic/Immunologic: Denies itchy eyes, lip swelling, seasonal rhinorrhea, rhinitis, throat swelling, tongue swelling, eczemia, wheezing or asthma Vital Signs Vital Signs Vital Signs: 04/04/24 05:21 04/04/24 05:21 04/04/24 05:26 Temperature 97.1 F L Temperature Source Temporal Pulse Rate 82 84 Respiratory Rate 16 Blood Pressure 119/58 L 119/58 L Blood Pressure Mean 78 BP Systolic 119 BP Diastolic 58 Blood Pressure Source Monitor Blood Pressure Position Semi-Fowlers Blood Pressure Location Right Arm Pulse Ox 96 Oxygen Delivery Method Room Air 04/04/24 05:37 04/04/24 05:37 04/04/24 05:37 Temperature Temperature Source Temporal Pulse Rate 84 Respiratory Rate Blood Pressure Blood Pressure Mean BP Systolic BP Diastolic Blood Pressure Source Blood Pressure Position Blood Pressure Location Pulse Ox 96 Oxygen Delivery Method 04/04/24 05:37 04/04/24 05:37 04/04/24 05:37 Temperature 97.0 F L Temperature Source Pulse Rate Respiratory Rate 18 Blood Pressure Blood Pressure Mean BP Systolic BP Diastolic Blood Pressure Source Blood Pressure Position Blood Pressure Location Pulse Ox 99 Oxygen Delivery Method Weight Weight: 233 lb 9.6 oz Body Mass Index (BMI) 32.5 Physical Exam Const alert, oriented x3, no apparent distress and healthy appearing General Appearance: cooperative; Negative for anxious HEENT normocephalic Face and Sinus: normal facial exam Eyes EOMs intact bilaterally and no scleral icterus General Eye: normal appearance of both eyes Neck full ROM and supple Lymph Lymphatic: no lymphadenopathy noted Chest Chest: abnormal inspection of the chest Resp normal respiratory effort Effort and Inspection: able to speak in complete sentences Cardio regular rate GI soft to palpation and non-tender Inspection: gravid Palpation: soft; Negative for tender Back/Spine no CVA tenderness Extremity normal to inspection, full ROM and no clubbing, cyanosis or edema General Extremity: Negative for calf tenderness or edema Skin Lesions: no lesions Rashes: no rashes Psych mental status grossly normal Labs Labs Labs: Blood Type A POSITIVE Antibody Screen NEGATIVE Hct 35.3 % (37-47) L Hgb 11.5 g/dL (12.0-15.0) L Obstetrics Ultrasound Syphilis Total Ab Non-reactive Rubella IgG Antibody Reactive (Nonreactive) Hep Bs Antigen Non-Reactive (Nonreactive) Hepatitis C Antibody Non-Reactive (Nonreactive) Chlamydia DNA ([place]) Negative (Negative) N.gonorrhoeae DNA ([place]) Negative (Negative) HIV 1&2 Antibody Non-Reactive (Nonreactive) Glucose 1 Hr 50 gm 117 mg/dL (70-140) Group B Strep DNA Negative (Negative) Assessment & Plan (1) Autoimmune disorder: COMMENT: ? pt states they are figuring it out, not diagnosed (2) Supervision of high-risk : QUALIFIERS: Trimester: third trimester Qualified Code(s): O09.93 - Supervision of high risk , unspecified, third trimester COMMENT: PRR, , RUBEN 04/10/24,boy PC Franca Tomas, Massimo (3) : QUALIFIERS: Weeks of gestation: 38 weeks Qualified Code(s): Z3A.38 - 38 weeks gestation of COMMENT: GBS Negative, normal, discussed genetic and carrier testing (4) with history of section, antepartum: COMMENT: [facility]10 with JV (5) Hx of depression, currently : COMMENT: Not on any medication currently (6) Generalized anxiety disorder with panic attacks: COMMENT: Not on any medication currently (7) Family history of autism in sibling: COMMENT: brother mild, cousin severe PLAN: Plan After discussing the patient's diagnosis and treatment plan options, patient wishes to proceed with surgical management. I have discussed with the patient the risks, benefits, and alternatives of the procedure which include but are not limited to risks of anesthesia, bleeding, infection, possible damage to bowel, bladder, or surrounding vasculature which could lead to additional surgery to evaluate any complications. Patient agrees to procedure and wishes to proceed.
--- NOTE | 2024-04-04 07:23 | DCINST_ITS ---
Discharge Instructions Diet Discharge Diet: No restrictions Activity Discharge Activity: May Not Drive (for 2 weeks or while taking narcotic pain medications.), May Shower and May Take a Tub Bath (in 7 days.) May resume sexual activity in: 4-6 weeks Weight Bearing Status: Full weight bearing Lifting Restrictions: 20 pounds Dressing / Incision Call your doctor if your incision/area has: Continuous Slow Oozing, Sudden Increased Bleeding, Increased Pain/ Swelling, Increased Redness and Foul Smelling Discharge Call your doctor if you observe: Fever of 101 or Higher and Using more than 1 pad per hour Suture Line Care: Avoid Pulling/Pushing and Avoid Pinching/Bending Cleanse incision/area with: Soap & Water and Keep Dressing Clean & Dry Follow Up Care Please Follow Up With: Albina Swanson DO When: Call [phone] to make an appointment for an incision check in 1-2 weeks. Test Results: Test results from this visit will be discussed in further detail at your follow- up appointment, if applicable. Discharge Plan Admission Admit Date/Time: 04/04/24 05:10 Primary Reason for Your Visit: section Attending Provider: Albina Swanson Primary Care Provider: Henny Eisenberg Primary Discharge Orders/Prescriptions Prescriptions: New ibuprofen 800 mg tablet 800 mg PO Q8H PRN (Reason: pain) Qty: 30 0RF oxycodone-acetaminophen [Percocet] 5-325 mg tablet 1 tab PO Q4H PRN (Reason: pain) 7 Days Qty: 20 0RF Rx Instructions: 1-2 tabs q 4 hrs as needed for pain No Action multivitamin Tablet 1 tab PO DAILY Referrals / Follow Up: Care PhysicianHenny Primary [Primary Care Provider] - Disposition Disposition (needs filled in before D/C Order can be placed): Home, Self Care
[2024-04-04] MEDS: Cefazolin 2 GM in 0.9% Normal Saline (100mL Bag) 100 ML IV (07:24)
[2024-04-04 08:22] LABS: Syphilis Antibodies Non-reactive
[2024-04-04] MEDS: Oxytocin 15 Units/NS 250ml 15 UNITS/250 ML IV.SOLN 83 UNITS IV (08:37)
--- NOTE | 2024-04-04 08:39 | EX.PCM.OBRPT ---
Assessment & Plan (1) Autoimmune disorder: COMMENT: ? pt states they are figuring it out, not diagnosed (2) Supervision of high-risk : QUALIFIERS: Trimester: third trimester Qualified Code(s): O09.93 - Supervision of high risk , unspecified, third trimester COMMENT: PRR, , RUBEN 04/10/24,boy AMADEO Tomas, Massimo (3) : QUALIFIERS: Weeks of gestation: 38 weeks Qualified Code(s): Z3A.38 - 38 weeks gestation of COMMENT: GBS Negative, normal, discussed genetic and carrier testing (4) with history of section, antepartum: COMMENT: Desires RTLCS:wants some visits in [facility] RLS scheduled for 04/04 @ 7:10 with JV (5) Hx of depression, currently : COMMENT: Not on any medication currently (6) Generalized anxiety disorder with panic attacks: COMMENT: Not on any medication currently (7) Family history of autism in sibling: COMMENT: brother mild, cousin severe Maternal Data Information RUBEN Calculator Estimated Delivery Date Method Current WG Current Estimate 04/10/24 LMP (Certain) 39w 1d Other Estimates 04/09/24 Ultrasound #1 39w 2d Final RUBEN: 04/10/24 Final RUBEN Source: LMP Details Operative Information Date of Procedure: 04/04/24 Pre-Operative Diagnosis: 28 y/o @ 39 weeks, prior section declines Post-Operative Diagnosis: 28 y/o @ 39 weeks, prior section declines Classification: Scheduled Procedure Type: low transverse innovations paraprofessional #1: Jenn Napoles Type of Anesthesia: Spinal Antibiotic Given: Ancef 2 grams IV x1 Estimated Blood Loss: 700cc Findings Description of Procedure: Procedure: The patient was brought to the operating room and spinal anesthesia was found to be adequate. She was prepped and draped in the normal sterile fashion and was placed in a dorsal supine position with a leftward tilt. Pfannenstiel skin incision was made with a scalpel and carried through to the underlying layers. The fascia was nicked in the midline and extended laterally using Recio scissors. The anterior aspect of the fascia was grasped with Jolynn clamps and the underlying rectus muscles dissected off using the Metzenbaum scissors. The inferior aspect the fascia was also grasped with Jolynn clamps and the underlying rectus muscle dissected off with the Metzenbaum scissors. The rectus muscles were in the midline. Peritoneum was entered sharply. The uterus was identified and a bladder blade was inserted into the abdomen. Bladder flap was created off the uterus using Metzenbaum scissors. A transverse incision was made with a scalpel and extended laterally manually. The infant's head was grasped with the help of my assistant auditor and fundal pressure the was delivered through the uterine incision without difficulty. The mouth and nares were bulb suctioned. After a 30 second delay the cord was clamped and cut. The was handed off to the awaiting medical assembler for routine assessment. Placenta was delivered manually without difficulty. The uterus was exteriorized and cleared of all clots and debris. Incision was closed with an 0 Vicryl suture in a running locked fashion. Second layer of 1-0 monocryl suture was used in imbricating manner to create excellent closure and hemostasis. The uterus was returned to the abdomen. The gutters were cleared of all clots and debris. The peritoneum was closed in a pursestring pattern using a 3-0 Vicryl suture. This muscle was reapproximated with a 3-0 Vicryl. The fascia was closed with an 0-PDS suture. Subcutaneous tissue layer was closed using a 3-0 vicryl suture. The skin was closed with a 4-0 Monocryl subcuticular stitch. The patient tolerated the procedure well sponge lap and needle counts were correct at each tissue closure plane and the patient is now being brought to the recovery room in stable condition Presentation: Positive for Vertex Amniotic Fluid Description: Clear Placental Delivery Description: Manual Removal Placenta Disposition: [facility] Cord Vessel Description: 3 Vessels Cord Entanglement: None Infant A Gender: Male (1 minute): 8 (5 minute): 9 Delayed Cord Clamping: Yes Complications Risks of Surgery Discussed w/Patient: Anesthesia Risks, Infection, Need for Future C-Sections and Injury to surrounding structure(s) including bowel and bladder Complications: none Multi Select Codes Urinary/Genital Urinary/Genital CPT Codes: 03618 Delivery [facility]
[2024-04-04] MEDS: Ketorolac 30 MG/ML Syringe IV ×3 (09:16→21:24)
[2024-04-04] MEDS: 0.9% Saline Lock 10 ML Syringe IV ×3 (09:17→21:24)
[2024-04-04] MEDS: Lactated Ringers 1,000 ML 100 ML IV (11:51)
--- NOTE | 2024-04-04 18:14 | NURSING ---
Up to chair after other child visit per pt request.
[2024-04-04] MEDS: SimETHICONE 80 MG Chewable Tablet PO (21:24)
[2024-04-05] MEDS: Acetaminophen 500 MG Tablet 1000 MG PO ×3 (00:12→12:35)
[2024-04-05 00:14] VITALS: BP 112/64; PULSE 74; RESP 16; TEMP 36.1; O2SAT 96
[2024-04-05] MEDS: Ketorolac 30 MG/ML Syringe IV (02:52)
[2024-04-05] MEDS: 0.9% Saline Lock 10 ML Syringe IV ×2 (02:52→05:46)
[2024-04-05 02:58] VITALS: BP 109/66; PULSE 64; RESP 15; TEMP 36.1; O2SAT 97
[2024-04-05 06:07] LABS: Hematocrit 32.7 % (37-47); Hemoglobin 10.5 g/dL (12.0-15.0); Mean Corp Hgb Conc 32.1 g/dL (32-36); Mean Corpuscular Hgb 27.6 pg (27.0-32.0); Mean Corpuscular Volume 85.8 fL (81-99); Mean Platelet Vol. 9.7 fl (6.2-12.0); Platelet Count 233 K/mm3 (150-450); RBC Distribution Width CV 13.1 % (11.6-14.6); Red Blood Count 3.81 M/mm3 (4.2-5.4); White Blood Count 18.7 K/mm3 (4.4-11.0)
[2024-04-05 08:30] VITALS: BP 108/64; PULSE 76; RESP 18; TEMP 36.2; O2SAT 97
[2024-04-05] MEDS: Ibuprofen 600 MG Tablet PO ×2 (08:36→14:41)
[2024-04-05] MEDS: Senna/Docusate Sodium 1 Tablet PO (08:36)
--- NOTE | 2024-04-05 08:45 | PCM.PN.OB ---
Subjective Subjective Patient is laying in bed comfortably without complaints. She states that she slept on an off during the night. Lochia is mild and pain is minimal. She would like to go home today Objective Data Objective Data Vital Signs: Vital Signs Temp Pulse Resp BP Pulse Ox O2 Del Method 97.0 F L 64 15 109/66 97 Room Air 04/05/24 02:58 04/05/24 02:58 04/05/24 02:58 04/05/24 02:58 04/05/24 02:58 04/05/24 02:58 Oxygen Delivery Method Room Air Weight: 233 lb 9.6 oz Body Mass Index (BMI) 32.5 Intake & Output: Intake and Output for Last 24 Hours 04/03/24 04/04/24 04/05/24 23:59 23:59 23:59 Intake Total 1784.17 / 1784.17 Output Total 4300 / 4300 650 / 650 Balance -2515.83 / -2515.83 -650 / -650 Lab / Micro Data 04/05/24 05:55 Labs: Laboratory Results - last 24 hr 04/05/24 05:55: WBC 18.7 H, RBC 3.81 L, Hgb 10.5 L, Hct 32.7 L, MCV 85.8, MCH 27.6, MCHC 32.1, RDW Std Deviation 40.0, RDW Coeff of Maria Esther 13.1, Plt Count 233, MPV 9.7 ROS Constitutional Constitutional: Reports systems reviewed and no addt'l complaints, except as documented Cardiovascular Cardiovascular: Denies chest pain, dizziness, dyspnea or irregular heart rhythm Respiratory/Chest Respiratory/Chest: Denies cough, pain on inspiration or shortness of breath at rest Gastrointestinal Gastrointestinal: Denies abdominal pain, nausea or vomiting Genitourinary Genitourinary: Denies burning urination Musculoskeletal Musculoskeletal: Denies muscle cramps, muscle spasms or muscle weakness Neurologic Neurologic: Denies confusion, dizziness, headache(s) or lack of coordination Psychiatric Psychiatric: Denies anxiety, behavioral changes or depression Physical Exam HEENT normocephalic Resp normal respiratory effort and normal air movement GI soft to palpation, non-tender and non-distended Rectal Exam: other Other Details: Incision is clean, dry, and intact no CVA tenderness Extremity normal to inspection General Extremity: edema bilateral (trace ) Assessment & Plan (1) S/P : (2) Autoimmune disorder: COMMENT: ? pt states they are figuring it out, not diagnosed (3) Generalized anxiety disorder with panic attacks: COMMENT: Not on any medication currently PLAN: Plan s/p LTCS PPD # 1 1. routine post care 2. breast feeding- support given 3. rh positive 4. rubella immune 5. plan for dc to home today
--- NOTE | 2024-04-05 12:01 | CASEMGMT ---
Social Work Assessment Labor and Delivery Unit Date/Time of referral: 04/04/24, 11:25am Referred by: Dr. Swanson Date/Time of intervention: 04/05/24, 11:30am Reason for referral: hx of depression, depression, panic attacks History obtained from: MEGAN ARIAS Household composition: MOBMEGAN(18 months) and now baby Joe Cuellar. MOB and MEGAN have been together for four years. Parent/Guardian status: MOB and FOB are guardians of both children Medical History: MOB--autoimmune disorder, . Baby: Born 04/[birth year]/24, 3415 grams, Apgars 8 and 9 at one and five minutes. Educational Status: Both MOB and FOB completed school to the 8th grade Financial Status: No concerns. MOB stays home with the children, FOAnthony works at [employer] Infant supplies: They have all needed supplies including, diapers, wipes, clothing, car seat, bassinet, crib, access to formula if needed. MOB plans to breast feed. Childcare/Caregivers: MOB and FOB, MOB and FOB's mothers, MOB's sister who is almost 16. This is her sister's third time helping with an infant and MOB feels she is very capable. Transportation: They have a assembly line driver and can get to [facility] as needed Programs/Agencies involved: None. Children's Services/Legal Issues: None Behavioral Health issues: Substance Abuse: Both FOB and MOB report no history of substance abuse. No tox screens completed for MOB or baby. Mental Health: MEGAN reports no mental health history. HUGO reports history of anxiety, depression, panic attacks. She states has never been formally diagnosed, and this just started once her first child was 10 months old. She was not certain she had panic attacks, we spoke about symptoms and she did acknowledge has had feelings of a racing heart. She states if she gets rest and eats, she can usually manage her symptoms. She spoke about symptoms starting when she would try to go to sleep. We spoke about grounding techniques, SW reviewed a few grounding techniques and MOB stated she thought these techniques would be helpful. She is unaware of a family history of anxiety or depression. We spoke about counseling and medication as well, MOB states understanding of these resources. Family/Social Stressors: None reported at this time. Support Systems: MOB's and FOB's mothers, extended families, MOB's sister. Depression/Anxiety/Shaken baby/Safe Sleeping/Mental Health Resources/Help Me Grow: SW gave MOB resources on all of these topics and reviewed them w/MOB and FOB. SW reviewed in particular information about PPD and anxiety, encouraged MOB to reach out and consider counseling, should she be having increased symptoms. She states is taking a supplement from her relationship counselor called stress relief for moms that helps. Again, SW spoke w/MOB and FOB about counseling and medication, both seemed open to the information. Assessment: SW spoke w/FOB and MOB they answered all questions, they were appropriate in interactions w/SW. FOB picked up the baby when he started fussing and seemed appropriate in the care of the child. MOB aware of her symptoms of anxiety and depression, aware of what triggers them and what to do if she is struggling. MOB also open to information on grounding techniques and stated was helpful. Plan: Baby will go home w/MOB and FOB at discharge, no further social media editor anticipated at this time. KOBY Dunn
[2024-04-05 12:45] VITALS: BP 116/72; PULSE 84; RESP 18; TEMP 36.4; O2SAT 97
== END 2024-04-05 14:55 | disposition home or self-care (01) | DRG 788 ==
PROVIDERS: Admitting Provider Obstetrics & Gynecology; Referring Provider Obstetrics & Gynecology; Visit Provider Obstetrics & Gynecology
PROC: 10D00Z1 Extraction of Products of Conception, Low, Open Approach (ICD-10-PCS; CPT 59514; principal; 2024-04-04 07:00)
DX: O34.211 Maternal care for low transverse scar from previous cesarean delivery (principal); Z37.0 Single live birth; Z3A.39 39 weeks gestation of pregnancy
CPT/HCPCS: 59025; 85025; 85027; 86780; 86850; 86900; 86901; 99221; J7120; A4216; G0378; J2405

== ENCOUNTER → 2025-03-27 | Outpatient (CLI) | payer OTHER, SELFPAY ==
[2025-03-27 16:52] LABS: Hematocrit 38.8 % (37-47); Hemoglobin 12.9 g/dL (12.0-15.0); Immature Granulocytes Count 0.030 X10^3/uL (0.0-0.0); Mean Corp Hgb Conc 33.2 g/dL (32-36); Mean Corpuscular Volume 85.8 fL (81-99); Mean Platelet Vol. 10.8 fl (6.2-12.0); NRBC Flagged by Analyzer 0 % (0-5); Platelet Count 284 K/mm3 (150-450); RBC Distribution Width CV 12.3 % (11.6-14.6); RBC Distribution Width SD 38.5 fl (35.1-43.9); Red Blood Count 4.52 M/mm3 (4.2-5.4); White Blood Count 7.8 K/mm3 (4.4-11.0)
[2025-03-27 17:40] LABS: HIV Nonreactive (Nonreactive); Hepatitis B Surface Antigen Nonreactive (Nonreactive); Hepatitis C Antibody Nonreactive (Nonreactive); Syphilis Antibodies Nonreactive (Nonreactive)
[2025-03-31 21:07] LABS: Chlamydia By Nucleic Acid AMP Negative (Negative); Gonococcus By Nucleic Acid AMP Negative (Negative)
== END | disposition home or self-care (01) ==
PROVIDERS: Referring Provider Advanced Practice Midwife; Visit Provider Advanced Practice Midwife
DX: O09.90 Supervision of high risk pregnancy, unspecified, unspecified trimester (principal); O99.280 Endocrine, nutritional and metabolic diseases complicating pregnancy, unspecified trimester; Z3A.00 Weeks of gestation of pregnancy not specified
CPT/HCPCS: 36415; 84439; 84443; 85025; 86703; 86762; 86780; 86803; 86850; 86900; 86901; 87086; 87088; 87340; 87491; 87591

== ENCOUNTER → 2025-06-12 | Outpatient (CLI) | payer SELFPAY, OTHER ==
--- NOTE | 2025-06-12 12:19 | US_ITS ---
PROCEDURE: OB ANATOMY W/ TRANSVAGINAL 06/12/2025 REASON FOR EXAM: ANATOMY SCAN TECHNIQUE: Procedure Code: [id number] Modality: US Procedure: OB ANATOMY W/ TRANSVAGINAL FINDINGS The fetus is in breech presentation. cardiac activity is present at 138 bpm. Amniotic fluid maximum vertical pocket measures 5.0 cm, subjectively within normal limits. Estimated weight is 279 grams ??? 42 grams, corresponding to the 12th percentile. The biparietal diameter measures 4.4 cm, corresponding to 19 weeks 3 days, 24th percentile. The occipitofrontal diameter measures 5.5 cm, corresponding to 19 weeks 2 days, 35th percentile. The head circumference measures 16.4 cm, corresponding to 19 weeks 1 day, 19th percentile. The abdominal circumference measures 13.2 cm, corresponding to 18 weeks 4 days, 9th percentile. The femur length measures 3.0 cm, corresponding to 19 weeks 1 day, 17th percentile. Composite gestational age by ultrasound is 19 weeks 0 days. Gestational age by LMP is 20 weeks 0 days. Estimated date of delivery by LMP is 10/30/2025. The lateral ventricles are visualized and measure 0.6 cm. The choroid plexus is visualized. The cerebellum is visualized and measures 1.8 cm. The cisterna magna is visualized and measures 0.2 cm. The face, orbits, nose, lips, and profile are visualized. The four-chamber heart is visualized. The diaphragm, stomach, abdominal wall, cord insertion, and three-vessel cord are visualized. Both kidneys and the bladder are visualized. The cervical, thoracic, lumbar, and sacral spine are visualized. The upper and lower extremities are visualized. gender is male. The placenta is posterior, grade 0, within normal limits, without previa. The cervix measures 3.8 cm with closed cervical os. The adnexa are not visualized. US/OB Anatomy w/ Transvaginal IMPRESSION: Single live intrauterine gestation in breech presentation with heart rate of 138 bpm. biometry corresponds to 19 weeks 0 days, concordant with LMP dating at 20 weeks 0 days. Estimated weight 279 grams, 12th percentile. anatomy survey is within normal limits with all major structures visualiz ed, though the exam was somewhat limited by position. Posterior placenta, grade 0, without previa. Amniotic fluid within normal limits. Cervical length 3.8 cm with closed os. Reading Location: [id number]
== END | disposition home or self-care (01) ==
LOC: OPUS 12:18
PROVIDERS: Referring Provider Obstetrics & Gynecology; Visit Provider Obstetrics & Gynecology
DX: O09.90 Supervision of high risk pregnancy, unspecified, unspecified trimester (principal); Z3A.00 Weeks of gestation of pregnancy not specified
CPT/HCPCS: 76805; 76817

== ENCOUNTER → 2025-07-10 | Outpatient (CLI) | payer OTHER, SELFPAY | END | disposition home or self-care (01) | LOC: BWCLAB 16:12 | PROVIDERS: Visit Provider Obstetrics & Gynecology | DX: E03.9 Hypothyroidism, unspecified (principal) | CPT/HCPCS: 36415; 84443 ==

== ENCOUNTER → 2025-07-30 | Outpatient (CLI) | payer SELFPAY, OTHER ==
--- NOTE | 2025-07-30 07:56 | US_ITS ---
PROCEDURE: OB LIMITED WITH BIOMETRICS 07/30/2025 REASON FOR EXAM: GROWTH TECHNIQUE: Procedure Code: [id number] Modality: US Procedure: OB LIMITED WITH BIOMETRICS COMPARISON: 12 June 2025. FINDINGS Number: 1 Position: cephalic Placental Position: Posterior Placental Abnormalities: Grade 1 DIMENSIONS: Biparietal Diameter: 6.4 cm / 25 weeks and 6 days Head Circumference: 22.6 cm / 24 weeks and 5 days Abdominal Circumference: 21 cm / 25 weeks and 1 day Femur Length: 4.8 cm / 26 weeks and 1 days ESTIMATED WEIGHT: 839 grams ESTIMATED WEIGHT PERCENTILE (24+ weeks): 8% ESTIMATED GESTATIONAL AGE: Baseline: 25 weeks and 6 days By Ultrasound: 25 weeks and 1 day ESTIMATED DATE OF DELIVERY: Baseline: November 06, 2025. By Ultrasound: November 11, 2025. BIOPHYSICAL ASSESSMENT: Amniotic Fluid Volume: Adequate Amniotic Fluid Index: 6.2 cm Maximal vertical pocket Cardiac Motion: 137 beats per minute (average) Trunk and Limb Motion: Present. MATERNAL ANATOMY: Adnexa: Neither maternal ovary is successfully identified. Cervical Length (if measured): 3.7 US/OB Limited With Biometrics IMPRESSION: 1. Single living intrauterine gestation at 25 weeks and 6 days in the cephalic presentation. 2. heart rate of 137 bpm. 3. Estimated weight 839 g (8%). Estimated weight is 2 standard de viations below mean. Consider short interval repeat examination in 1 week. 4. Posterior placenta. In compliance with [place] State Law Act 112, an automated letter has been sent to this patient notifying them that there are findings on this exam that warrant further discussion with their healthcare provider. Reading Location: [id number]
== END | disposition home or self-care (01) ==
PROVIDERS: Referring Provider Obstetrics & Gynecology; Visit Provider Obstetrics & Gynecology
DX: O09.92 Supervision of high risk pregnancy, unspecified, second trimester (principal); Z3A.26 26 weeks gestation of pregnancy
CPT/HCPCS: 76816

== ENCOUNTER → 2025-08-07 | Outpatient (CLI) | payer OTHER, SELFPAY ==
[2025-08-07 12:26] LABS: Hematocrit 37.8 % (37-47); Hemoglobin 12.5 g/dL (12.0-15.0); Immature Granulocytes Count 0.070 X10^3/uL (0.0-0.0); Mean Corp Hgb Conc 33.1 g/dL (32-36); Mean Corpuscular Volume 88.7 fL (81-99); Mean Platelet Vol. 9.8 fl (6.2-12.0); NRBC Flagged by Analyzer 0 % (0-5); Platelet Count 263 K/mm3 (150-450); RBC Distribution Width CV 12.3 % (11.6-14.6); RBC Distribution Width SD 39.5 fl (35.1-43.9); Red Blood Count 4.26 M/mm3 (4.2-5.4); White Blood Count 9.0 K/mm3 (4.4-11.0)
[2025-08-07 13:21] LABS: Glucose Challenge Gest 1H 50g 130 mg/dL (70-140); HIV Nonreactive (Nonreactive); Syphilis Antibodies Nonreactive (Nonreactive)
--- OUTSIDE RECORDS SUMMARY | 2025-08-07 18:27 | XMS RPT_ITS | CCD ---
Author Organization [facility] Care Team Providers Care Broach Grinder Name Role Phone TJ, DR BOBO Mix Admitting Unavaila ble TJ, DR BOBO Mix Attending Unavaila ble TJ, DR BOBO Mix Primary Care Unavaila ble TJ, DR BOBO Mix Admitting Unavaila ble TJ, DR BOBO Mix Attending Unavaila ble TJ, DR BOBO Mix Primary Care Unavaila ble Care Physician, No Primary Primary Care Provider Unavailable Care Physician, No Primary Referring Provider Un available Dr. Albina Swanson Attending Provider 1( 30) Care Physician, No Primary Primary Care Provider Unavailable Care Physician, No Primary Referring Provider Un available DAVID Su Attending Provider [phone]) Ervin PIPE FITTER PIPE FITTER-C Tamiko Attending Provider 1(330 ) Dr. Brielle Deluna Attending Provider 1(330 ) Care Physician, No Primary Primary Care Provider Unavailable Care Physician, No Primary Referring Provider Un available Cassie Su CNM Attending Provider 1(330) Cassie Su CNM Referring Provider 1(330) Dr. Brielle Deluna MD Attending Provider Ervin MYERS-CTamiko Attending Provider [phone] Care Physician, No Primary Primary Care Physicia n Unavailable Cassie Su CNM Attending Physician [phone] Dr. Brielle Deluna MD Attending Physician Tamiko Bell Attending Physician [phone] Dr. Brielle Deluna MD Referring Provider Dr. Albina Swanson DO Attending Physician Care Physician, No Primary Primary Care Unava ilable Brielle Deluna Attending Unavailable MarcanthBrielle brush Referring Unavailable Care Physician, No Primary Referring Unava ilable Care Physician, No Primary Primary Care Unava ilable Albina Swanson Attending Cassie Winkler Attending Unavailable Care Physician, No Primary Primary Care Unava ilable Care Physician, No Primary Referring Unava ilable Care Physician, No Primary Referring Cassie Ordonez Attending Unavailable Care Physician, No Primary Primary Care Unava ilable Care Physician, No Primary Referring Unava ilable Care Physician, No Primary Primary Care Unava ilable Mikie, Brielle Attending Unavailable Care Physician, No Primary Referring Unava ilable Care Physician, No Primary Primary Care Unava ilable Ervin PIPE FITTER, Tamiko Attending Unavailable Care Physician, No Primary Primary Care Unava ilable Albina Swanson Attending Cassie Winkler Attending Unavailable Cassie Su Referring Unavailable Care Physician, No Primary Primary Care Unava ilable Marcanthtrudi, Brielle Referring Unavailable Care Physician, No Primary Primary Care Unava ilable Brielle Deluna Attending Unavailable Allergies Allergy Classification Reported Allergen(s) Allergy Type Date of Onset Reaction(s) Facility (8 sources) bee venom protein (honey bee) Allergy to substance 09-04-2023 [facility] (1 source) bee venom protein (honey bee) Drug allergy (disorder) 07-10-2025 [facility] Repository Medications Current Medications Medication Drug Class(es) Dates Sig (Normalized) Sig (Original) Emigrant (Nk) (6 sources) Start: 03-27-2025 Emigrant (Nk) Active March 27, 2025 12:00am Uifgzluq-Jdv-Al-Fa (2 sources) Start: 09-18-2022 take 1 tablet by mouth once daily Ryyityah-Fst-Ie-Fa Active 1 TABLET PO DAILY September 18, 2022 1:00am Start: 09-18-2022 take 1 tablet by brittany th once daily Ctspwxkm-Ehk-Xb-Fa Active 1 TABLET PO DAILY September 18, 2022 12:00am Completed/Discontinued Medications Medication Drug Class(es) Dates Sig (Normalized) Sig (Original) acetaminophen 325 mg / oxyCODONE hydrochloride 5 mg oral tablet (6 sources) Opioid Agonist Start: 04-04-2024 End: 03-20-2025 take 1-2 tablets by mouth every four hours as needed for pain Oxycodone-Acetamin ophen (Percocet) 5-325 mg tablet Discontinued 1 {tbl} PO Q4H as needed for pain 20 7 0 April 04, 2024 March 20, 2025 1:44pm Status post delivery History of uterine scar from previous surgery 1-2 tabs q 4 hrs as needed for pain ferrous sulfate 325 mg oral tablet (6 sources) Start: 02-29-2024 End: 04-04-2024 take 1 tablet by mouth once daily Ferrous Sulfate 325 mg (65 mg iron) tablet Discontinued 325 mg PO DAILY February 29, 2024 12:00am April 04, 2024 5:11am ibuprofen 800 mg oral tablet (14 sources) Nonsteroidal Anti-inflammatory Drug Start: 04-04-2024 End: 03-20-2025 take 1 tablet by mouth every eight hours as needed for pain Ibuprofen 800 mg tablet Discontinued 800 mg PO Q8H as needed for pain 30 0 April 04, 2024 12:00am March 20, 2025 1:44pm Start: 09-20-2022 End: 08-29-2023 take 1 tablet by mouth every eight hours as needed for pain Ibuprofen 600 mg Tablet Discontinued 600 mg PO EVERY 8 HOURS NEEDED as needed for pain 30 0 September 20, 2022 7:47am August 29, 2023 9:33am Multivitamin tablet (6 sources) Start: 02-29-2024 End: 03-20-2025 Multivitamin tablet Discontinued 1 {tbl} PO DAILY February 29, 2024 12:00am March 20, 2025 1:44pm oxyCODONE hydrochloride 5 mg oral tablet (8 sources) Opioid Agonist Start: 09-20-2022 End: 08-29-2023 take 1 tablet by mouth every six hours as needed Oxycodone 5 mg Tablet Discontinued 5 mg PO EVERY 6 HOURS NEEDED 8 3 0 September 20, 2022 August 29, 2023 9:32am delivery delivered Encounter for delivery without indication severe Sjoxvabh-Lfx-Tf-Fa 1 mg Tablet (6 sources) Start: 09-18-2022 End: 02-29-2024 take 1 tablet by mouth once daily Lnebgxuw-Ulg-Rg-Fa 1 mg Tablet Discontinued 1 {tbl} PO DAILY September 18, 2022 1:00am February 29, 2024 1:18pm Problems Active Problems Problem Classification Problem Date Documented Da te Episodic/Chronic Anxiety disorders (20 sources) Generalized anxiety disorder; Translations: [Generalized anxiety disorder] Onset: 07-10-2025 09-04-2023 Chronic Comment on above: Not on any medicatio n currently Cardiac dysrhythmias (20 sources) Postural orthostatic tachycardia syndrome ; Translations: [Postural orthostatic tachycardia syndrome] 03-20-2025 Chronic Comment on above: Pt taking herbal sup plements distress and abnormal forces of labor (8 sources) Disorder of labor / delivery; Translations: [Abnormality of forces of labor, unspecified] 09-19-2022 Episodic Comment on above: Prolonged second sta ge Immunity disorders (14 sources) Autoimmune disease; Translations: [Other specified disorders involving the immune mechanism, not elsewhere classified] 08-29-2023 Chronic Comment on above: ? pt states they are figuring it out, not diagnosed Other circulatory disease (1 source) Postural orthostatic tachycardia syndrome ; Translations: [Postural orthostatic tachycardia syndrome [POTS]] Onset: 07-10-2025 Episodic Other complications of (20 sources) High risk ; Translations: [Supervision of high risk , unspecified, unspecified trimester] 08-29-2023 Episodic Comment on above: RUBEN 10/30 PC Priscila mix, Joe Massimo PRR, , RUBEN 04/10,boy PC Franca Tomas, Massimo PRR (waiting on [facility]) RUBEN 10/30 PC Franca, Joe Massimo PRR RUBEN 10/30 PC Franca, Joe Massimo Other complications of (14 sources) H/O: depression; Translations: [History of depression, currently ] 09-04-2023 Episodic Comment on above: Not on any medicatio n currently Other complications of (7 sources) Supervision of high risk , unspecified, unspecified trimester; Translations: [Supervision of unspecified high-risk ] Onset: 06-17-2025 09-04-2023 Episodic Other complications of (2 sources) Supervision of high risk , unspecified, second trimester; Translations: [Supervision of high risk , unspecified, second trimester] Onset: 07-10-2025 Episodic Other endocrine disorders (20 sources) Reggie's syndrome; Translations: [Hypopituitarism] 03-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 Chronic Comment on above: unofficial diagnosis per patient Other endocrine disorders (1 source) Hypopituitarism; Translations: [Hypopituitarism] Onset: 07-10-2025 Chronic Previous (20 sources) ; Translations: [Maternal care for unspecified type scar from previous delivery] 09-04-2023 Episodic Comment on above: Desires RTLCS:wants some visits in [facility] scheduled for 04/04 @ 7:10 with CHRIS NIPT w gender/ phuc er - declines GBS Negative, normal , discussed genetic and carrier testing Prolonged (8 sources) Gestation period, 42 weeks; Translations: [Post-term ] 09-19-2022 Episodic Residual codes; unclassified (20 sources) Family history of autism in sibling; Translations: [Family history of other mental and behavioral disorders] 08-29-2023 Episodic Comment on above: brother mild, cousin severe Residual codes; unclassified (7 sources) Family history of other mental and behavioral disorders; Translations: [Family history of psychiatric condition] Onset: 07-10-2025 09-04-2023 Episodic Residual codes; unclassified (1 source) History of uterine scar from previous surgery; Translations: [History of uterine scar from previous surgery] Onset: 07-10-2025 Episodic Residual codes; unclassified (1 source) 24 weeks gestation of ; Translations: [24 weeks gestation of ] Onset: 07-10-2025 Episodic Thyroid disorders (20 sources) Hypothyroidism; Translations: [Hypothyroidism, unspecified] Onset: 07-19-2025 03-20-2025 Chronic Comment on above: 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 neg antibodies Past or Other Problems Problem Classification Problem Date Documented Da te Episodic/Chronic Other and delivery including normal (13 sources) Encounter for supervision of normal , unspecified, unspecified trimester; Translations: [ state, incidental] Onset: 03-27-2025 09-04-2023 Episodic Residual codes; unclassified (1 source) 9 weeks gestation of ; Translations: [9 weeks gestation of ] Onset: 03-27-2025 Episodic Results Test Name Value Interpretation Reference Range Facility OB Limited With Biometricson 07-30-2025 OB Limited With Biometrics [facility] Services [address] [place] [address] OB Limited With Biometrics MR#: [id number] Acct: [id number] Name: MARION MONSON Rep #: [id number] : 1995 F 29 From: Rajendra Dalal DO PCP: Care Physician,No Primary Status: REG CLI Study: OB Limited With Biometrics Date of Exam: 07/30 Exam# [id number] Ordering Dr: Brielle Deluna PROCEDURE: OB LIMITED WITH BIOMETRICS 07/30/2025 REASON FOR EXAM: GROWTH TECHNIQUE: Procedure Code: USOBGROWTH Modality: US Procedure: OB LIMITED WITH BIOMETRICS COMPARISON: 12 June 2025. FINDINGS Number: 1 Position: cephalic Placental Position: Posterior Placental Abnormalities: Grade 1 DIMENSIONS: Biparietal Diameter: 6.4 cm / 25 weeks and 6 days Head Circumference: 22.6 cm / 24 weeks and 5 days Abdominal Circumference: 21 cm / 25 weeks and 1 day Femur Length: 4.8 cm / 26 weeks and 1 days ESTIMATED WEIGHT: 839 grams ESTIMATED WEIGHT PERCENTILE (24+ weeks): 8% ESTIMATED GESTATIONAL AGE: Baseline: 25 weeks and 6 days By Ultrasound: 25 weeks and 1 day ESTIMATED DATE OF DELIVERY: Baseline: November 06, 2025. By Ultrasound: November 11, 2025. BIOPHYSICAL ASSESSMENT: Amniotic Fluid Volume: Adequate Amniotic Fluid Index: 6.2 cm Maximal vertical pocket Cardiac Motion: 137 beats per minute (average) Trunk and Limb Motion: Present. MATERNAL ANATOMY: Adnexa: Neither maternal ovary is successfully identified. Cervical Length (if measured): 3.7 US/OB Limited With Biometrics IMPRESSION: 1. Single living intrauterine gestation at 25 weeks and 6 days in the cephalic presentation. 2. heart rate of 137 bpm. 3. Estimated weight 839 g (8%). Estimated weight is 2 standard deviations below mean. Consider short interval repeat examination in 1 week. 4. Posterior placenta. In compliance with [place] State Law Act 112, an automated letter has been sent to this patient notifying them that there are findings on this exam that warrant further discussion with their healthcare provider. Reading Location: [id number] CC: Dr. Brielle Deluna MD; No Primary Care Physician Ladle Cleaner: Signed Normal [facility] Office Visit Reporton 07-10-2025 [facility] Office Visit Report [facility] [address], [address] [place] [address] OFFICE VISIT Date of Service: 07/10/25 MR#: [id number] Acct: [id number] Name: MARION MONSON Rep #: [id number] : 1995 Provider: DAVID Ramos ams Age/Sex: 29/F Location: [facility] [place] Status: Signed Intake Vital Signs 05/27/25 13:40 06/12/25 14:03 07/10/25 14:01 07/10/25 14:02 Height 5 ft 11 in 5 ft 11 in 5 ft 11 in 5 ft 11 in Weight: 214 lb 4 oz BMI 29.9 BP 113/75 Intake Visit Reasons: 24w 0d OB *CSEC/JV Cable Television Technician Required: No Is patient in pain?: No Allergies bee venom protein (honey bee) (bee stings) Allergy (Verified 07/10/25 14:01) Hives Medications ???Medication ???Instructions ???Recorded ???Confirmed ???Type NK 03/27/25 07/10/25 History Last Menstrual Period: 01/23/25 Zika: Zika virus screening: Negative : No PFSH PFSH Medical History Autoimmune disorder care and examination depression Surgical History S/P History of tonsillectomy History of hip surgery Family History Mother Hypertension Mother Diabetes Brother Autism Social History adopted: No household members: spouse and children number of children: 2 current occupational status: unemployed current occupation: SAHM pets and animals: No history of recent travel: No ([place]) Smoking Status: Never smoker alcohol intake: current alcohol intake frequency: holidays/special occasions only details: NOT WHILE substance use type: does not use diet: gluten free and lactose free well-balanced diet: about half the time caffeine: No eating out: rarely or never during the past year weight has: remained stable what type of physical activity do you participate in: none kasi/christianity: Christianity seatbelt use: sometimes do you feel safe at home: Yes additional social history: Susie guerra History 3 Elective abortions Hx Para 2 Spontaneous abortions Hx # Term Pregnancies Ectopic pregnancies Hx # Pregnancies Multiple births # of living children 2 Past Pregnancies Del. Date Name GA/Weeks Outcome Route Bth Weight Infant Gen Labor Lgth Anesthesia Del Locatn Provider FOB 09/18/22 Franca Tomas 42 live - full term 9#2oz Female 24 Hr none [facility] Dr. Len Keys 04/04/24 39 live - full term Male spinal [facility] Kurtis Massimo Delivery Date: 09/18/22 Last Updated by: Ana Ibarra Unable to push out. Hip surgery at 13yo. Unable to do vaginal . HPI 24w 0d OB *CSEC/JV Details: MARION MONSON is a 29 year old who presents for routine OB visit. OB Visit RUBEN Calculator Estimated Delivery Date Method Current WG Current Estimate 10/30/25 LMP (Certain) 24w 0d Other Estimates 10/30/25 Ultrasound #1 24w 0d Expected Delivery Route/Plan repeat c/s Specific Issue/Plans Covid status: [] Flu vaccine: [] Tdap vaccine: [] Rhogam: na LARC form signed: [] Problem list reviewed and updated with the most current plan of care details and appropriate orders placed. Relevant counseling for the gestational age provided. Continue routine care and follow up unless otherwise noted in visit notes/problem list details Initial Weight: 211 lb Date -???-???-???-???-??? -???-???-???-???-??? -???-???- EGA Weight BP Urine Prot -???-???-???-???-??? -???-???-???-???-??? -???-???- Glucose FHR FuHt Pres Dilation -???-???-???-???-??? -???-???-???-???-??? -???-???- Effaced St Visit Note 03/27/25 -???-???-???-???-??? -???-???-???-???-??? -???-???- 9w 0d 211 lb 8 oz (+8 oz) 122/77 -???-???-???-???-??? -???-???-???-???-??? -???-???- 165 -???-???-???-???-??? -???-???-???-???-??? -???-???- KW- CRL 2.26 cm and cons with dates. declines NIPT 04/28/25 -???-???-???-???-??? -???-???-???-???-??? -???-???- 13w 4d 208 lb 8 oz (-2 lb 8 oz) 129/72 Negative -???-???-???-???-??? -???-???-???-???-??? -???-???- Negative 140 -???-???-???-???-??? -???-???-???-???-??? -???-???- Sm- one epis ode bleeding no cramping 05/27/25 -???-???-???-???-??? -???-???-???-???-??? -???-???- 17w 5d 207 lb 5 oz (-3 lb 11 oz) 118/72 Negative -???-???-???-???-??? -???-???-???-???-??? -???-???- Negative 152 -???-???-???-???-??? -???-???-???-???-??? -???-???- -No VB or cramping. Feeling flutters. No concerns 06/12/25 -???-???-???-???-??? -???-???-???-???-??? -???-???- 20w 0d 208 lb 9 oz (-2 lb 7 oz) 121/73 -???-???-???-???-??? -???-???-???-???-??? -???-???- 145 -???-???-???-???-??? -???-???- (more content not included)... Normal [facility] Thyroid Stim Hormone (TSH)on 07-10-2025 TSH 0.638 uIU/mL Normal 0.300-4.200 [facility] Comment on above: Performed By: #### L [phone] ####[facility] [id number] [facility] [place], [place], [id number] OB Anatomy w/ Transvaginalon 06-12-2025 OB Anatomy w/ Transvaginal [facility] [address] [place], [place] [id number] OB Anatomy w/ Transvaginal MR#: [id number] Acct: [id number] Name: MARION MONSON Rep #: [id number] : 1995 F 29 From: Oskar Lauren MD PCP: Care Physician,No Primary Status: REG CLI Study: OB Anatomy w/ Transvaginal Date of Exam: 06/12 Exam# [id number] Ordering Dr: Brielle Deluna PROCEDURE: OB ANATOMY W/ TRANSVAGINAL 06/12/2025 REASON FOR EXAM: ANATOMY SCAN TECHNIQUE: Procedure Code: USOBANATVAG Modality: US Procedure: OB ANATOMY W/ TRANSVAGINAL FINDINGS The fetus is in breech presentation. cardiac activity is present at 138 bpm. Amniotic fluid maximum vertical pocket measures 5.0 cm, subjectively within normal limits. Estimated weight is 279 grams ??? 42 grams, corresponding to the 12th percentile. The biparietal diameter measures 4.4 cm, corresponding to 19 weeks 3 days, 24th percentile. The occipitofrontal diameter measures 5.5 cm, corresponding to 19 weeks 2 days, 35th percentile. The head circumference measures 16.4 cm, corresponding to 19 weeks 1 day, 19th percentile. The abdominal circumference measures 13.2 cm, corresponding to 18 weeks 4 days, 9th percentile. The femur length measures 3.0 cm, corresponding to 19 weeks 1 day, 17th percentile. Composite gestational age by ultrasound is 19 weeks 0 days. Gestational age by LMP is 20 weeks 0 days. Estimated date of delivery by LMP is 10/30/2025. The lateral ventricles are visualized and measure 0.6 cm. The choroid plexus is visualized. The cerebellum is visualized and measures 1.8 cm. The cisterna magna is visualized and measures 0.2 cm. The face, orbits, nose, lips, and profile are visualized. The four-chamber heart is visualized. The diaphragm, stomach, abdominal wall, cord insertion, and three-vessel cord are visualized. Both kidneys and the bladder are visualized. The cervical, thoracic, lumbar, and sacral spine are visualized. The upper and lower extremities are visualized. gender is male. The placenta is posterior, grade 0, within normal limits, without previa. The cervix measures 3.8 cm with closed cervical os. The adnexa are not visualized. US/OB Anatomy w/ Transvaginal IMPRESSION: Single live intrauterine gestation in breech presentation with heart rate of 138 bpm. biometry corresponds to 19 weeks 0 days, concordant with LMP dating at 20 weeks 0 days. Estimated weight 279 grams, 12th percentile. anatomy survey is within normal limits with all major structures visualized, though the exam was somewhat limited by position. Posterior placenta, grade 0, without previa. Amniotic fluid within normal limits. Cervical length 3.8 cm with closed os. Reading Location: [id number] CC: Dr. Brielle Deluna MD; No Primary Care Physician Ladle Cleaner: Signed Normal [facility] Office Visit Reporton 06-12-2025 Bo[facility] Office Visit Report [facility] [address], [address] [place] [address] OFFICE VISIT Date of Service: 06/12/25 MR#: [id number] Acct: [id number] Name: MARION MONSON Rep #: [id number] : 1995 Provider: Dr. Albina Roman DO Age/Sex: 29/F Location: [facility] [place] Status: Signed Intake Vital Signs 04/28/25 13:03 05/27/25 13:40 06/12/25 14:03 Height 5 ft 11 in 5 ft 11 in 5 ft 11 in Weight: 208 lb 9 oz BMI 29.0 BP 121/73 H Intake Visit Reasons: 19 wk pt requested this day Chief Complaint: 20 wk OB Cable Television Technician Required: No Is patient in pain?: No Allergies bee venom protein (honey bee) (bee stings) Allergy (Verified 06/12/25 14:01) Hives Medications ???Medication ???Instructions ???Recorded ???Confirmed ???Type NK 03/27/25 06/12/25 History Last Menstrual Period: 01/23/25 : No PFSH PFSH Medical History Autoimmune disorder care and examination depression Surgical History S/P History of tonsillectomy History of hip surgery Family History Mother Hypertension Mother Diabetes Brother Autism Social History adopted: No household members: spouse and children number of children: 2 current occupational status: unemployed current occupation: [employer] pets and animals: No history of recent travel: No ([place]) Smoking Status: Never smoker alcohol intake: current alcohol intake frequency: holidays/special occasions only details: NOT WHILE substance use type: does not use diet: gluten free and lactose free well-balanced diet: about half the time caffeine: No eating out: rarely or never during the past year weight has: remained stable what type of physical activity do you participate in: none kasi/christianity: Christianity seatbelt use: sometimes do you feel safe at home: Yes additional social history: Susie guerra History 3 Elective abortions Hx Para 2 Spontaneous abortions Hx # Term Pregnancies Ectopic pregnancies Hx # Pregnancies Multiple births # of living children 2 Past Pregnancies Del. Date Name GA/Weeks Outcome Route Bth Weight Gen Labor Lgth Anesthesia Del Locatn Provider FOB 09/18/22 Franca Tomas 42 live - full term 9#2oz Female 24 Hr none [facility] Dr. Len Keys 04/04/24 39 live - full term Male spinal [facility] JJustin Keys Delivery Date: 09/18/22 Last Updated by: Ana Ibarra Unable to push out. Hip surgery at 13yo. Unable to do vaginal . HPI 19 wk pt requested this day Details: MARION MONSON is a 29 year old who presents for routine OB visit. OB Visit RUBEN Calculator Estimated Delivery Date Method Current WG Current Estimate 10/30/25 LMP (Certain) 20w 0d Other Estimates 10/30/25 Ultrasound #1 20w 0d Expected Delivery Route/Plan repeat c/s Specific Issue/Plans Covid status: [] Flu vaccine: [] Tdap vaccine: [] Rhogam: na LARC form signed: [] Problem list reviewed and updated with the most current plan of care details and appropriate orders placed. Relevant counseling for the gestational age provided. Continue routine care and follow up unless otherwise noted in visit notes/problem list details Initial Weight: 211 lb Date -???-???-???-???-??? -???-???-???-???-??? -???-???- EGA Weight BP Urine Prot -???-???-???-???-??? -???-???-???-???-??? -???-???- Glucose FHR FuHt Pres Dilation -???-???-???-???-??? -???-???-???-???-??? -???-???- Effaced St Visit Note 03/27/25 -???-???-???-???-??? -???-???-???-???-??? -???-???- 9w 0d 211 lb 8 oz (+8 oz) 122/77 -???-???-???-???-??? -???-???-???-???-??? -???-???- 165 -???-???-???-???-??? -???-???-???-???-??? -???-???- KW- CRL 2.26 cm and cons with dates. declines NIPT 04/28/25 -???-???-???-???-??? -???-???-???-???-??? -???-???- 13w 4d 208 lb 8 oz (-2 lb 8 oz) 129/72 Negative -???-???-???-???-??? -???-???-???-???-??? -???-???- Negative 140 -???-???-???-???-??? -???-???-???-???-??? -???-???- Sm- one epis ode bleeding no cramping 05/27/25 -???-???-???-???-??? -???-???-???-???-??? -???-???- 17w 5d 207 lb 5 oz (-3 lb 11 oz) 118/72 Negative -???-???-???-???-??? -???-???-???-???-??? -???-???- Negative 152 -???-???-???-???-??? -???-???-???-???-??? -???-???- MH-No VB or cramping. Feeling flutters. No concerns 06/12/25 -???-???-???-???-??? -???-???-???-???-??? -???-???- 20w 0d 208 lb 9 oz (-2 lb 7 oz) 121/73 -???-???-???-???-??? -???-???-???-???-??? -???-???- 145 -???-???-???-???-??? -???-???-???-???-??? -???-???- JV- no (more content not included)... Normal [facility] - Chemistry and C hemistry - challengeOrdered By: Tamiko Mueller on 05-27-2025 Glucose Ql (U) Negative [facility] - UrinalysisOrder ed By: Tamiko Mueller on 05-27-2025 Protein Ql (U) Negative [facility] Office Visit Reporton 05-27-2025 [facility] Office Visit Report [facility] [address], [address] [place] [address] OFFICE VISIT Date of Service: 05/27/25 MR#: [id number] Acct: [id number] Name: MARION MONSON Rep #: [id number] : 1995 Provider: SUE alegria Age/Sex: 29/F Location[place] [facility] [place] Status: Signed Intake Vital Signs 03/27/25 12:58 04/28/25 13:03 05/27/25 13:36 05/27/25 13:40 Height 5 ft 11 in 5 ft 11 in 5 ft 11 in 5 ft 11 in Weight: 207 lb 5 oz BMI 28.9 BP 118/72 Intake Visit Reasons: 17 WK OB Chief Complaint: 17 Week OB Cable Television Technician Required: No Is patient in pain?: No Allergies bee venom protein (honey bee) (bee stings) Allergy (Verified 05/27/25 13:36) Hives Medications ???Medication ???Instructions ???Recorded ???Confirmed ???Type NK 03/27/25 05/27/25 History Last Menstrual Period: 01/23/25 Zika: Zika virus screening: Negative : No PFSH PFSH Medical History Autoimmune disorder care and examination depression Surgical History S/P History of tonsillectomy History of hip surgery Family History Mother Hypertension Mother Diabetes Brother Autism Social History adopted: No household members: spouse and children number of children: 2 current occupational status: unemployed current occupation: [employer] pets and animals: No history of recent travel: No ([place]) Smoking Status: Never smoker alcohol intake: current alcohol intake frequency: holidays/special occasions only details: NOT WHILE substance use type: does not use diet: gluten free and lactose free well-balanced diet: about half the time caffeine: No eating out: rarely or never during the past year weight has: remained stable what type of physical activity do you participate in: none kasi/christianity: Christianity seatbelt use: sometimes do you feel safe at home: Yes additional social history: Susie Julio César leather History 3 Elective abortions Hx Para 2 Spontaneous abortions Hx # Term Pregnancies Ectopic pregnancies Hx # Pregnancies Multiple births # of living children 2 Past Pregnancies Del. Date Name GA/Weeks Outcome Route Bth Weight Infant Gen Labor Lgth Anesthesia Del Locatn Provider FOB 09/18/22 Franca Tomas 42 live - full term 9#2oz Female 24 Hr none [facility] Dr. Len Keys 04/04/24 39 live - full term Male spinal [facility] CHRIS Massimo Delivery Date: 09/18/22 Last Updated by: Ana Ibarra Unable to push out. Hip surgery at 13yo. Unable to do vaginal . HPI 17 WK OB Details: MARION MONSON is a 29 year old who presents for routine OB visit. OB Visit RUBEN Calculator Estimated Delivery Date Method Current WG Current Estimate 10/30/25 LMP (Certain) 17w 5d Other Estimates 10/30/25 Ultrasound #1 17w 5d Expected Delivery Route/Plan repeat c/s Specific Issue/Plans Covid status: [] Flu vaccine: [] Tdap vaccine: [] Rhogam: na LARC form signed: [] Problem list reviewed and updated with the most current plan of care details and appropriate orders placed. Relevant counseling for the gestational age provided. Continue routine care and follow up unless otherwise noted in visit notes/problem list details Initial Weight: 211 lb Date -???-???-???-???-??? -???-???-???-???-??? -???-???- EGA Weight BP Urine Prot -???-???-???-???-??? -???-???-???-???-??? -???-???- Glucose FHR FuHt Pres Dilation -???-???-???-???-??? -???-???-???-???-??? -???-???- Effaced St Visit Note 03/27/25 -???-???-???-???-??? -???-???-???-???-??? -???-???- 9w 0d 211 lb 8 oz (+8 oz) 122/77 -???-???-???-???-??? -???-???-???-???-??? -???-???- 165 -???-???-???-???-??? -???-???-???-???-??? -???-???- KW- CRL 2.26 cm and cons with dates. declines NIPT 04/28/25 -???-???-???-???-??? -???-???-???-???-??? -???-???- 13w 4d 208 lb 8 oz (-2 lb 8 oz) 129/72 Negative -???-???-???-???-??? -???-???-???-???-??? -???-???- Negative 140 -???-???-???-???-??? -???-???-???-???-??? -???-???- Sm- one epis ode bleeding no cramping 05/27/25 -???-???-???-???-??? -???-???-???-???-??? -???-???- 17w 5d 207 lb 5 oz (-3 lb 11 oz) 118/72 Negative -???-???-???-???-??? -???-???-???-???-??? -???-???- Negative 152 -???-???-???-???-??? -???-???-???-???-??? -???-???- MH-No VB or cramping. Feeling flutters. No concerns ACOG First Trimester First Trimester: Desire for , Alcohol, Tobacco Cessation, Illicit/Recreational Drug/Substance Use, Intimate Partner Violence, Barriers to (more content not included)... Normal [facility] - Chemistry and C hemistry - challengeOrdered By: Brielle Deluna on 04-28-2025 Glucose Ql (U) Negative [facility] - UrinalysisOrder ed By: Brielle Deluna on 04-28-2025 Protein Ql (U) Negative [facility] Office Visit Reporton 04-28-2025 [facility] Office Visit Report [facility] [address], [address] [place] [address] OFFICE VISIT Date of Service: 04/28/25 MR#: [id number] Acct: [id number] Name: MARION MONSON Rep #: [id number] : 1995 Provider: Dr. Brielle roblero MD Age/Sex: 29/F Location: [facility] [place] Status: Signed Intake Vital Signs 05/15/24 10:03 03/27/25 12:58 04/28/25 13:03 Height 5 ft 11 in 5 ft 11 in 5 ft 11 in Weight: 208 lb 8 oz BMI 29.0 BP 129/72 H Intake Visit Reasons: 13wk OB Cable Television Technician Required: No Is patient in pain?: No Allergies bee venom protein (honey bee) (bee stings) Allergy (Verified 04/28/25 13:02) Hives Medications ???Medication ???Instructions ???Recorded ???Confirmed ???Type NK 03/27/25 04/28/25 History Last Menstrual Period: 01/23/25 Zika: Zika virus screening: Negative : No PFSH PFSH Medical History Autoimmune disorder care and examination depression Surgical History S/P History of tonsillectomy History of hip surgery Family History Mother Hypertension Mother Diabetes Brother Autism Social History adopted: No household members: spouse and children number of children: 2 current occupational status: unemployed current occupation: [employer] pets and animals: No history of recent travel: No ([place]) Smoking Status: Never smoker alcohol intake: current alcohol intake frequency: holidays/special occasions only details: NOT WHILE substance use type: does not use diet: gluten free and lactose free well-balanced diet: about half the time caffeine: No eating out: rarely or never during the past year weight has: remained stable what type of physical activity do you participate in: none kasi/christianity: Christianity seatbelt use: sometimes do you feel safe at home: Yes additional social history: Massimo- Julio César guerra History 3 Elective abortions Hx Para 2 Spontaneous abortions Hx # Term Pregnancies Ectopic pregnancies Hx # Pregnancies Multiple births # of living children 2 Past Pregnancies Del. Date Name GA/Weeks Outcome Route Bth Weight Gen Labor Lgth Anesthesia Del Locatn Provider FOB 09/18/22 Sharifa 42 live - full term 9#2oz Female 24 Hr none [facility] Dr. Len Keys 04/04/24 39 live - full term Male spinal [facility] JV Massimo Delivery Date: 09/18/22 Last Updated by: Ana Ibarra Unable to push out. Hip surgery at 13yo. Unable to do vaginal . HPI 13wk OB Details: MARION MONSON is a 29 year old who presents for routine OB visit. OB Visit RUBEN Calculator Estimated Delivery Date Method Current WG Current Estimate 10/30/25 LMP (Certain) 13w 4d Other Estimates 10/30/25 Ultrasound #1 13w 4d Expected Delivery Route/Plan repeat c/s Specific Issue/Plans Covid status: [] Flu vaccine: [] Tdap vaccine: [] Rhogam: [] LARC form signed: [] Problem list reviewed and updated with the most current plan of care details and appropriate orders placed. Relevant counseling for the gestational age provided. Continue routine care and follow up unless otherwise noted in visit notes/problem list details Initial Weight: 211 lb Date -???-???-???-???-??? -???-???-???-???-??? -???-???- EGA Weight BP Urine Prot -???-???-???-???-??? -???-???-???-???-??? -???-???- Glucose FHR FuHt Pres Dilation -???-???-???-???-??? -???-???-???-???-??? -???-???- Effaced St Visit Note 03/27/25 -???-???-???-???-??? -???-???-???-???-??? -???-???- 9w 0d 211 lb 8 oz (+8 oz) 122/77 -???-???-???-???-??? -???-???-???-???-??? -???-???- 165 -???-???-???-???-??? -???-???-???-???-??? -???-???- KW- CRL 2.26 cm and cons with dates. declines NIPT 04/28/25 -???-???-???-???-??? -???-???-???-???-??? -???-???- 13w 4d 208 lb 8 oz (-2 lb 8 oz) 129/72 Negative -???-???-???-???-??? -???-???-???-???-??? -???-???- Negative 140 -???-???-???-???-??? -???-???-???-???-??? -???-???- Sm- one epis ode bleeding no cramping ACOG First Trimester First Trimester: Desire for , Alcohol, Tobacco Cessation, Illicit/Recreational Drug/Substance Use, Intimate Partner Violence, Barriers to care, Unstable Housing, Communication Barriers, Environmental/Work Hazards, Anticipated Course of Care, Toxoplasmosis Precations, Use of Any medications, Sexual activity, Exercise, Dental Care, Sauna/Hot tub use, Seat Belt use, Childbirth classes/Hospital facilities, Travel, Indications for Ultrasound and Screening for Aneuploidy; Discus (more content not included)... Normal [facility] L3410.9992on 04-02-2025 [facility] Mis. COMMENT Normal . [facility] Comment on above: Order Comment: Comme nts: TSH receptor [id number] R AB SERUM FZ Result Comment: Test Ordered: 100086 TSH Receptor Antibody (TBII) TSH Receptor Antibody (TBII) <0.4 U/L ES Reference Range: . Reference Range: Antibody Titer: <1.0 U/L = Negative 1.1 - 1.5 U/L = Equivocal >1.5 U/L = Positive Performed at: [facility] [address] [place] [id number] Agent Contract Clerk: Km Borden MD, Phone: [phone] Performed at: [facility] [id number] Agent Contract Clerk: Edin Whitman PhD, Phone: [phone] Performed By: #### L 3410.9992, L3890.6102, L3890.6006, BTS, L509.4006, L100.0100, L509.8002, L506.0400, L3890.6301, L501.9520 ####[facility] [address] [place], [place], [id number] Chlamydia/GC DENNYS aptimaon CHLAMY,NUC ACID Negative Normal Negative [facility] Comment on above: Performed By: #### M 100.2200, L7000.1800 #### [facility] [address] [place], [address] GC BY NUC ACID Negative Normal Negative [facility] Comment on above: Result Comment: Perf ormed at: =G - [facility] [address] [id number] Agent Contract Clerk: Ashley Wellington MD, Phone: [phone] Performed By: #### M 100.2200, L7000.1800 #### [facility] [address] [place], [place], [phone] Urine Cultureon 03-28-2025 [facility] Mixed Gram Positive Organisms [place] Count 25,000-50,000 [facility] Mixed contaminants. Submit a new specimen if indicated. Normal [facility] Comment on above: Performed By: #### M 100.2200, L7000.1800 #### [facility] [address] [place], [place], [id number] Absolute lymphocyte countOrd ered By: Cassie Su on 03-27-2025 Lymphocytes Auto (Unsp spec) [#/Vol] 1.79 10*3/uL 0.83-4.51 [facility] Absolute neutrophil countOrd ered By: Cassie Su on 03-27-2025 Neutrophils (Bld) [#/Vol] 5.3 10*3/uL 2.0-7.7 [facility] Automated lymphocyte count a s percentage of total leukocytesOrdered By: Cassie Su on 03-27-2025 Lymphocytes/100 WBC Auto (Unsp spec) 23.0 % 19-41 [facility] Basophil percentageOrdered B y: Cassie Su on 03-27-2025 Basophils/100 WBC (Bld) 0.4 % 0-1 [facility] CBC W/Diff, Automatedon 03-18 Absolute Lymph 1.79 X10 3/uL Normal 0.83-4.51 [facility] Comment on above: Performed By: #### L 3410.9992, L3890.6102, L3890.6006, BTS, L509.4006, L100.0100, L509.8002, L506.0400, L3890.6301, L501.9520 #### [facility] [address] [place], [address] Absolute Neut 5.3 X10 3/uL Normal 2.0-7.7 [facility] Comment on above: Performed By: #### L 3410.9992, L3890.6102, L3890.6006, BTS, L509.4006, L100.0100, L509.8002, L506.0400, L3890.6301, L501.9520 #### [facility] [address] [place], [address] Basophils/100 WBC (Bld) 0.4 % Normal 0-1 [facility] Comment on above: Performed By: #### L 3410.9992, L3890.6102, L3890.6006, BTS, L509.4006, L100.0100, L509.8002, L506.0400, L3890.6301, L501.9520 #### [facility] [address] [facility] [place], [address] Eosinophils/100 WBC (Bld) 1.2 % Normal 0-5 [facility] Comment on above: Performed By: #### L 3410.9992, L3890.6102, L3890.6006, BTS, L509.4006, L100.0100, L509.8002, L506.0400, L3890.6301, L501.9520 #### [facility] [address] [facility] [place], [address] Erythrocyte distribution width (RBC) [Ratio] 12.3 % Normal 11.6-14.6 [facility] Comment on above: Performed By: #### L 3410.9992, L3890.6102, L3890.6006, BTS, L509.4006, L100.0100, L509.8002, L506.0400, L3890.6301, L501.9520 #### [facility] [address] [place], [address] Hematocrit (Bld) [Volume fraction] 38.8 % Normal 37-47 [facility] Comment on above: Performed By: #### L 3410.9992, L3890.6102, L3890.6006, BTS, L509.4006, L100.0100, L509.8002, L506.0400, L3890.6301, L501.9520 #### [facility] [address] [place], [address] Hemoglobin (Bld) [Mass/Vol] 12.9 g/dL Normal 12.0-15.0 [facility] Comment on above: Performed By: #### L 3410.9992, L3890.6102, L3890.6006, BTS, L509.4006, L100.0100, L509.8002, L506.0400, L3890.6301, L501.9520 #### [facility] [address] [place], [address] IG% 0.400 Normal 0.0-0.9 [facility] Comment on above: Result Comment: IG% - Immature Granulocytes (promyelocytes, myelocytes and metamyelocytes) > 1% indicates that a LEFT SHIFT is Present. Performed By: #### L 3410.9992, L3890.6102, L3890.6006, BTS, L509.4006, L100.0100, L509.8002, L506.0400, L3890.6301, L501.9520 #### [facility] [address] [place], [address] Lymphocytes/100 WBC (Bld) 23.0 % Normal 19-41 [facility] Comment on above: Performed By: #### L 3410.9992, L3890.6102, L3890.6006, BTS, L509.4006, L100.0100, L509.8002, L506.0400, L3890.6301, L501.9520 #### [facility] [address] [place], [address] MCH (RBC) [Entitic mass] 28.5 pg Normal 27.0-32.0 [facility] Comment on above: Performed By: #### L 3410.9992, L3890.6102, L3890.6006, BTS, L509.4006, L100.0100, L509.8002, L506.0400, L3890.6301, L501.9520 #### [facility] [address] [place], [address] MCHC (RBC) [Mass/Vol] 33.2 g/dL Normal 32-36 [facility] Comment on above: Performed By: #### L 3410.9992, L3890.6102, L3890.6006, BTS, L509.4006, L100.0100, L509.8002, L506.0400, L3890.6301, L501.9520 #### [facility] [address] [place], [address] MCV (RBC) [Entitic vol] 85.8 fL Normal 81-99 [facility] Comment on above: Performed By: #### L 3410.9992, L3890.6102, L3890.6006, BTS, L509.4006, L100.0100, L509.8002, L506.0400, L3890.6301, L501.9520 #### [facility] [address] [place], [address] Monocytes/100 WBC (Bld) 6.8 % Normal 0-10 [facility] Comment on above: Performed By: #### L 3410.9992, L3890.6102, L3890.6006, BTS, L509.4006, L100.0100, L509.8002, L506.0400, L3890.6301, L501.9520 #### [facility] [address] [place], [address] Neutrophils/100 WBC (Bld) 68.2 % Normal 47-70 [facility] Comment on above: Performed By: #### L 3410.9992, L3890.6102, L3890.6006, BTS, L509.4006, L100.0100, L509.8002, L506.0400, L3890.6301, L501.9520 #### [facility] [address] [place], [address] Nucleated RBC (Bld) [#/Vol] 0 10*3/uL Normal 0-5 [facility] Comment on above: Performed By: #### L 3410.9992, L3890.6102, L3890.6006, BTS, L509.4006, L100.0100, L509.8002, L506.0400, L3890.6301, L501.9520 #### [facility] [address] [place], [place], [phone] ([address] Platelet mean volume (Bld) [Entitic vol] 10.8 fL Normal 6.2-12.0 [facility] Comment on above: Performed By: #### L 3410.9992, L3890.6102, L3890.6006, BTS, L509.4006, L100.0100, L509.8002, L506.0400, L3890.6301, L501.9520 #### [facility] [address] [place], [address] Platelets (Bld) [#/Vol] 284 10*3/uL Normal 150-450 [facility] Comment on above: Performed By: #### L 3410.9992, L3890.6102, L3890.6006, BTS, L509.4006, L100.0100, L509.8002, L506.0400, L3890.6301, L501.9520 #### [facility] [address] [place], [address] RBC (Bld) [#/Vol] 4.52 10*6/uL Normal 4.2-5.4 [facility] Comment on above: Performed By: #### L 3410.9992, L3890.6102, L3890.6006, BTS, L509.4006, L100.0100, L509.8002, L506.0400, L3890.6301, L501.9520 #### [facility] [address] [place], [place], [id number] RDW SD 38.5 fl Normal 35.1-43.9 [facility] Comment on above: Performed By: #### L 3410.9992, L3890.6102, L3890.6006, BTS, L509.4006, L100.0100, L509.8002, L506.0400, L3890.6301, L501.9520 #### [facility] [address] [facility] [place], [place], [id number] WBC (Bld) [#/Vol] 7.8 10*3/uL Normal 4.4-11.0 [facility] Comment on above: Performed By: #### L 3410.9992, L3890.6102, L3890.6006, BTS, L509.4006, L100.0100, L509.8002, L506.0400, L3890.6301, L501.9520 #### [facility] [address] [place], [place], [id number] Chlamydia trachomatis rRNA d etection by probe and target amplification methodOrdered By: Cassie Su on 03-27-2025 C. trachomatis rRNA DENNYS+probe Ql (Unsp spec) Negative Negative [facility] Eosinophil percentageOrdered By: Cassie Su on 03-27-2025 Eosinophils/100 WBC (Bld) 1.2 % 0-5 [facility] Erythrocyte distribution wid th ratioOrdered By: Cassie Su on 03-27-2025 Erythrocyte distribution width (RBC) [Ratio] 12.3 % 11.6-14.6 [facility] Erythrocyte distribution wid th standard deviationOrdered By: Cassie Su on 03-27-2025 Erythrocyte distribution width (RBC) [Ratio] 38.5 fl 35.1-43.9 [facility] HIVon 03-27-2025 HIV Non-Reactive Normal Nonreactive [facility] Comment on above: Result Comment: Non- Reactive Reactive Repeatedly reactive samples must be confirmed according to CDC recommended confirmatory algorithms. The subresults for either HIVAG or AHIV can be used as an aid in the selection of the confirmation algorithm for reactive samples. Send out specimens with Reactive results to [facility] for confirmation. Order the HIV antibody detection and differentiation: [id number] Performed By: #### L 3410.9992, L3890.6102, L3890.6006, BTS, L509.4006, L100.0100, L509.8002, L506.0400, L3890.6301, L501.9520 ####[facility] [address] [place], [address] Hematocrit Auto (Bld) [Volum e fraction]Ordered By: Cassie Su on 03-27-2025 Hematocrit (Bld) [Volume fraction] 38.8 % 37-47 [facility] Hemoglobin measurementOrdere d By: Cassie Su on 03-27-2025 Hemoglobin (Bld) [Mass/Vol] 12.9 g/dL 12.0-15.0 [facility] Hepatitis C Antibodyon 03-27 Hepatitis C Ab Non-Reactive Normal Nonreactive [facility] Comment on above: Result Comment: Reac tive: Presumptive evidence of antibodies to HCV. Follow CDC recommendations for supplemental testing. Non-Reactive: Antibodies to HCV were not detected; does not exclude the possibility of exposure to HCV Reactive Results are presumptive evidence of antibodies to HCV. Follow CDC recommendations for supplemental testing. Order confirmation testing: HCV Quant by PCR testing - HCVPCR #[id number] Non Reactive: < 0.8 Equivocal: >/= 0.8 to < 1.0 Reactive: >/= 1.0 The CDC requires that a reactive/equivocal HCV antibody result be sent out for confirmation. HCV Quant by PCR testing. Performed By: #### L 3410.9992, L3890.6102, L3890.6006, BTS, L509.4006, L100.0100, L509.8002, L506.0400, L3890.6301, L501.9520 ####[facility] [address] [facility] [place], [address] Immature granulocytes/100 WB C Auto (Bld)Ordered By: Cassie Su on 03-27-2025 Immature granulocytes/100 WBC (Bld) 0.400 % 0.0-0.9 [facility] Comment on above: IG% - Immature Granu locytes (promyelocytes, myelocytes and metamyelocytes) > 1% indicates that a LEFT SHIFT is Present. L3890.6102on 03-27-2025 HEP B Surf Ag Non-Reactive Normal Nonreactive [facility] Comment on above: Result Comment: Reac tive: Presumptive evidence of HBV. Repeatedly reactive samples must be confirmed using a neutralization test ([employer] HBsAg Confirmatory Test) Non-Reactive: HBsAg not detected; does not exclude the possibility of exposure to HBV Performed By: #### L 3410.9992, L3890.6102, L3890.6006, BTS, L509.4006, L100.0100, L509.8002, L506.0400, L3890.6301, L501.9520 ####[facility] [address] [facility] [place], [address] L509.4006on 03-27-2025 Rubella IgG REAC Normal Nonreactive [facility] Comment on above: Result Comment: Anti body Result: Interpretation Non-Reactive: Non-Immune Reactive: Immune The following results were obtained with the [employer] Rubella IgG assay. Results from assays of other manufacturers cannot be used interchangeably. Performed By: #### L 3410.9992, L3890.6102, L3890.6006, BTS, L509.4006, L100.0100, L509.8002, L506.0400, L3890.6301, L501.9520 ####[facility] [address] [facility] [place], [address] Laboratory - Microbiology an d Antimicrobial susceptibilityOrdered By: Cassie Su on 03-27-2025 HBV surface Ag Ql (S) Non-Reactive Nonreactive [facility] Comment on above: Reactive: Presumptiv e evidence of HBV. Repeatedly reactive samples must be confirmed using a neutralization test ([employer] HBsAg Confirmatory Test)Non-Reactive: HBsAg not detected; does not exclude the possibility of exposure to HBV MCV (mean corpuscular volume ) determinationOrdered By: Cassie Su on 03-27-2025 MCV (RBC) [Entitic vol] 85.8 fL 81-99 [facility] Mean corpuscular hemoglobin (MCH) determinationOrdered By: Cassie Su on 03-27-2025 MCH (RBC) [Entitic mass] 28.5 pg 27.0-32.0 [facility] Mean corpuscular hemoglobin concentration (MCHC) determinationOrdered By: Cassie Su on 03-27-2025 MCHC (RBC) [Mass/Vol] 33.2 g/dL 32-36 [facility] Mean platelet volume determi nationOrdered By: Cassie Su on 03-27-2025 Platelet mean volume (Bld) [Entitic vol] 10.8 fL 6.2-12.0 [facility] Monocyte percentageOrdered B y: Cassie Su on 03-27-2025 Monocytes/100 WBC (Bld) 6.8 % 0-10 [facility] Neisseria gonorrhoeae nuclei c acid detection by amplified probe techniqueOrdered By: Cassie Su on 03-27-2025 N. gonorrhoeae DNA DENNYS+probe Ql (Unsp spec) Negative Negative [facility] Comment on above: Performed at: =G - [facility] [address] [id number] Director: Ashley Wellington MD, Phone: [phone] Neutrophil percentageOrdered By: Cassie Su on 03-27-2025 Neutrophils/100 WBC (Bld) 68.2 % 47-70 [facility] No Panel InformationOrdered By: Cassie Su on 03-27-2025 HIV (1&2) Antibody Non-Reactive Nonreactive [facility] Comment on above: Non-ReactiveReactive Repeatedly reactive samples must be confirmed according to CDC recommended confirmatory algorithms. The subresults for either HIVAG or AHIV can be used as an aid in the selection of the confirmation algorithm for reactive samples.Send out specimens with Reactive results to [facility] for confirmation.Order the HIV antibody detection and differentiation: #[id number] Nucleated red blood cell per centageOrdered By: Cassie Su on 03-27-2025 Nucleated RBC/100 WBC (Bld) [Ratio] 0 % 0-5 [facility] Office Visit Reporton 03-27-2025 [facility] Office Visit Report [facility] [address], [address] [place] [id number] OFFICE VISIT Date of Service: 03/27/25 MR#: [id number] Acct: [id number] Name: MARION MONSON Rep #: [id number] : 1995 Provider: DAVID Ramos ams Age/Sex: 29/F [place] [facility] [place] [place] Status: Signed Intake Vital Signs 05/15/24 10:03 03/27/25 12:58 Height 5 ft 11 in 5 ft 11 in Weight: 211 lb 8 oz BMI 29.5 BP 122/77 H Intake Visit Reasons: *EST* NOB LMP 01/23, RUBEN 10/30 Chief Complaint: New OB Cable Television Technician Required: No Is patient in pain?: No Allergies bee venom protein (honey bee) (bee stings) Allergy (Verified 03/27/25 12:56) Hives Medications ???Medication ???Instructions ???Recorded ???Confirmed ???Type NK 03/27/25 03/27/25 History Last Menstrual Period: 01/23/25 : No Have you fallen in the past year?: No PFSH PFSH Medical History Autoimmune disorder care and examination depression Surgical History S/P History of tonsillectomy History of hip surgery Family History Mother Hypertension Mother Diabetes Brother Autism Social History adopted: No household members: spouse and children number of children: 2 current occupational status: unemployed current occupation: [employer] pets and animals: No history of recent travel: No ([place]) Smoking Status: Never smoker alcohol intake: current alcohol intake frequency: holidays/special occasions only details: NOT WHILE substance use type: does not use diet: gluten free and lactose free well-balanced diet: about half the time caffeine: No eating out: rarely or never during the past year weight has: remained stable what type of physical activity do you participate in: none kasi/christianity: Christianity seatbelt use: sometimes do you feel safe at home: Yes additional social history: Susie guerra History 3 Elective abortions Hx Para 2 Spontaneous abortions Hx # Term Pregnancies Ectopic pregnancies Hx # Pregnancies Multiple births # of living children 2 Past Pregnancies Del. Date Name GA/Weeks Outcome Route Bth Weight Infant Gen Labor Lgth Anesthesia Del Locatn Provider FOB 09/18/22 Sharifa 42 live - full term 9#2oz Female 24 Hr none [facility] Dr. Len Keys 04/04/24 39 live - full term Male spinal [facility] CHRIS Keys Delivery Date: 09/18/22 Last Updated by: Ana Ibarra Unable to push out. Hip surgery at 13yo. Unable to do vaginal . HPI *EST* NOB LMP 01/23, RUBEN 10/30 Details: MARION MONSON is a 29 year old who presents for New OB visit. OB Visit RUBEN Calculator Estimated Delivery Date Method Current WG Current Estimate 10/30/25 LMP (Certain) 9w 0d Other Estimates 10/30/25 Ultrasound #1 9w 0d Comments: HIV: Urine Culture: Sequential Screen: NIPT Screen: Estimated Due Date: 10/30/25 Expected Delivery Route/Plan repeat c/s Specific Issue/Plans Covid status: [] Flu vaccine: [] Tdap vaccine: [] Rhogam: [] LARC form signed: [] Problem list reviewed and updated with the most current plan of care details and appropriate orders placed. Relevant counseling for the gestational age provided. Continue routine care and follow up unless otherwise noted in visit notes/problem list details Initial Weight: 211 lb Date -???-???-???-???-??? -???-???-???-???-??? -???-???- EGA Weight BP Urine Prot -???-???-???-???-??? -???-???-???-???-??? -???-???- Glucose FHR FuHt Pres Dilation -???-???-???-???-??? -???-???-???-???-??? -???-???- Effaced St Visit Note 03/27/25 -???-???-???-???-??? -???-???-???-???-??? -???-???- 9w 0d 211 lb 8 oz (+8 oz) 122/77 -???-???-???-???-??? -???-???-???-???-??? -???-???- 165 -???-???-???-???-??? -???-???-???-???-??? -???-???- KW- CRL 2.26 cm and cons with dates. declines NIPT Menstrual History Last Menstrual Period: 01/23/25 Reported LMP: definite Normal amount/duration: No Frequency in days: 28 On hormonal BC at conception: No hCG+: 02/21/25 Antepartum Record Genetic Screening: Congenital Heart Defect: Other, Neural Tube Defect: Other, Hemoglobinopathy Or Carrier: Other, Cystic Fibrosis: Other, Chromosome Abnormality: Other, Brandt-Sachs: Other, Hemophilia: Other, Intellectual Disability/Autism: Patient (Pt's brother), Recurrent Loss/Stillbirth: Other, Other Structural Defect: Other, Other Genetic Disease: Other and Maternal Metabolic Disorder: Other Infection History: Live with someo (more content not included)... Normal [facility] Platelet countOrdered By: Malcolm Su on 03-27-2025 Platelets (Bld) [#/Vol] 284 10*3/uL 150-450 [facility] RBC Auto (Bld) [#/Vol]Ordere d By: Cassie Su on 03-27-2025 RBC (Bld) [#/Vol] 4.52 10*6/uL 4.2-5.4 [facility] Syphilis Antibodieson 2024 Syphilis Abs Non-Reactive Normal Nonreactive [facility] Comment on above: Performed By: #### L 3410.9992, L3890.6102, L3890.6006, BTS, L509.4006, L100.0100, L509.8002, L506.0400, L3890.6301, L501.9520 #### [facility] [address]. [place], [place], [id number] T4 Free Directon 03-27-2025 T4 FREE DIRECT 1.30 ng/dL Normal 0.76-1.46 [facility] Comment on above: Order Comment: TSH r eceptor antibodies Performed By: #### L 3410.9992, L3890.6102, L3890.6006, BTS, L509.4006, L100.0100, L509.8002, L506.0400, L3890.6301, L501.9520 ####[facility] [address] [place], [place], [id number] T4 freeOrdered By: Cassie lobato on 03-27-2025 Free T4 [Mass/Vol] 1.30 ng/dL 0.76-1.46 [facility] TSH DL <= 0.005 mIU/L QnOrde red By: Cassie Su on 03-27-2025 TSH Qn 0.540 uIU/mL 0.300-4.200 [facility] Thyroid Stim Hormone (TSH)on 03-27-2025 TSH 0.540 uIU/mL Normal 0.300-4.200 [facility] Comment on above: Performed By: #### L 3410.9992, L3890.6102, L3890.6006, BTS, L509.4006, L100.0100, L509.8002, L506.0400, L3890.6301, L501.9520 ####[facility] [address] [place], [place], [address] Type AND Screenon 03-27-2025 Ab SCREEN GEL Negative Normal [facility] Comment on above: Order Comment: PN Performed By: #### L 3410.9992, L3890.6102, L3890.6006, BTS, L509.4006, L100.0100, L509.8002, L506.0400, L3890.6301, L501.9520 #### [facility] [address] [place], [place], [id number] Urine cultureOrdered By: Refugio Su on 03-27-2025 Bacteria identified Cx Nom (U) Positive Abnormal [facility] White blood cell (WBC) count Ordered By: Cassie Su on 03-27-2025 WBC (Bld) [#/Vol] 7.8 10*3/uL 4.4-11.0 [facility] Absolute lymphocyte countOrd ered By: Brielle Deluna on 01-17-2024 Lymphocytes Auto (Unsp spec) [#/Vol] 1.81 10*3/uL 0.83-4.51 [facility] Automated lymphocyte count a s percentage of total leukocytesOrdered By: Brielle Deluna on 01-17-2024 Lymphocytes/100 WBC Auto (Unsp spec) 18.5 % 19-41 [facility] Basophil percentageOrdered B y: Brielle Deluna on 01-17-2024 Basophils/100 WBC (Bld) 0.3 % 0-1 [facility] Eosinophils/100 WBC (Bld) 0.8 % 0-5 [facility] Hemoglobin (Bld) [Mass/Vol] 11.8 g/dL 12.0-15.0 [facility] Monocytes/100 WBC (Bld) 6.2 % 0-10 [facility] Neutrophils (Bld) [#/Vol] 7.2 10*3/uL 2.0-7.7 [facility] Neutrophils/100 WBC (Bld) 73.7 % 47-70 [facility] WBC (Bld) [#/Vol] 9.8 10*3/uL 4.4-11.0 [facility] Determination of erythrocyte mean corpuscular volume (MCV)Ordered By: Brielle Deluna on 01-17-2024 MCV (RBC) [Entitic vol] 86.5 fL 81-99 [facility] Erythrocyte distribution wid th ratioOrdered By: Brielle Deluna on 01-17-2024 Erythrocyte distribution width (RBC) [Ratio] 12.4 % 11.6-14.6 [facility] Erythrocyte distribution wid th standard deviationOrdered By: Brielle Deluna on 01-17-2024 Erythrocyte distribution width (RBC) [Entitic vol] 38.9 fL 35.1-43.9 [facility] Gestational diabetes screen 1-hour screen with 50g oral glucose loadOrdered By: Brielle Deluna on 01-17-2024 Glucose 1 Hr post 50 g glucose PO [Mass/Vol] 117 mg/dL 70-140 [facility] HIV 1 and HIV-2 antibody ass ay with HIV-1 p24 antigen detectionOrdered By: Brielle Deluna on 01-17-2024 HIV 1+2 Ab+HIV1 p24 Ag IA Ql Non-Reactive Nonreactive [facility] Hematocrit Auto (Bld) [Volum e fraction]Ordered By: Brielle Deluna on 01-17-2024 Hematocrit (Bld) [Volume fraction] 36.5 % 37-47 [facility] Immature granulocytes/100 WB C Auto (Bld)Ordered By: Brielle Deluna on 01-17-2024 Immature granulocytes/100 WBC (Bld) 0.500 % 0.0-0.9 [facility] Comment on above: IG% - Immature Granu locytes (promyelocytes, myelocytes and metamyelocytes) > 1% indicates that a LEFT SHIFT is Present. Laboratory - Chemistry and C hemistry - challengeon 01-17-2024 Glucose Ql (U) Negative [facility] - Hematology and Cell countsOrdered By: Brielle Deluna on 01-17-2024 MCH (RBC) [Entitic mass] 28.0 pg 27.0-32.0 [facility] MCHC (RBC) [Mass/Vol] 32.3 g/dL 32-36 [facility] Nucleated RBC/100 WBC (Bld) [Ratio] 0 % 0-5 [facility] Platelet mean volume (Bld) [Entitic vol] 9.6 fL 6.2-12.0 [facility] Platelets (Bld) [#/Vol] 271 10*3/uL 150-450 [facility] Laboratory - Urinalysison Protein Ql (U) Negative [facility] RBC Auto (Bld) [#/Vol]Ordere d By: Brielle Deluna on 01-17-2024 RBC (Bld) [#/Vol] 4.22 10*6/uL 4.2-5.4 [facility] Serum Treponema species anti body detectionOrdered By: Brielle Deluna on 01-17-2024 Treponema sp Ab Ql (S) Non-Reactive [facility] Laboratory - Chemistry and C hemistry - challengeon 12-18-2023 Glucose Ql (U) Negative [facility] - Urinalysison Protein Ql (U) Negative [facility] - Chemistry and C hemistry - challengeon 11-30-2023 Glucose Ql (U) Negative [facility] - Urinalysison Protein Ql (U) Negative [facility] - Chemistry and C hemistry - challengeon 10-31-2023 Glucose Ql (U) Negative [facility] - Urinalysison Protein Ql (U) Negative [facility] Absolute lymphocyte countOrd ered By: Albina Burger on 09-04-2023 Lymphocytes Auto (Unsp spec) [#/Vol] 1.63 10*3/uL 0.83-4.51 [facility] Basophil percentageOrdered B y: Albina Burger on 09-04-2023 Basophils/100 WBC (Bld) 0.4 % 0-1 [facility] Eosinophils/100 WBC (Bld) 0.6 % 0-5 [facility] Neutrophils (Bld) [#/Vol] 6.1 10*3/uL 2.0-7.7 [facility] Neutrophils/100 WBC (Bld) 72.5 % 47-70 [facility] WBC (Bld) [#/Vol] 8.4 10*3/uL 4.4-11.0 [facility] Blood erythrocytes count (nu mber/volume)Ordered By: Albina Burger on 09-04-2023 RBC (Bld) [#/Vol] 4.74 10*6/uL 4.2-5.4 [facility] Blood hemoglobin measurement (mass/volume)Ordered By: Albina Burger on 09-04-2023 Hemoglobin (Bld) [Mass/Vol] 13.2 g/dL 12.0-15.0 [facility] Blood lymphocytes/100 leukoc ytesOrdered By: Albina Burger on 09-04-2023 Lymphocytes/100 WBC (Bld) 19.5 % 19-41 [facility] Blood monocytes/100 leukocyt esOrdered By: Albina Burger on 09-04-2023 Monocytes/100 WBC (Bld) 6.6 % 0-10 [facility] Blood platelet mean volumeOr dered By: Albina Burger on 09-04-2023 Platelet mean volume (Bld) [Entitic vol] 9.9 fL 6.2-12.0 [facility] Cervical or vagninal specime n microscopic examination by cytology stain (reported asOrdered By: Albina Burger on 09-04-2023 Cytology report Cyto stain Doc (Cvx/Vag) Comment . [facility] Comment on above: The Pap smear is a s creening test designed to aid in thedetection of premalignant and malignant conditions of theuterine cervix. It is not a diagnostic procedure andshould not be used as the sole means of detecting cervicalcancer. Both false-positive and false-negative reports dooccur. Chlamydia trachomatis rRNA d etection by probe and target amplification methodOrdered By: Albina Burger on 09-04-2023 C. trachomatis rRNA DENNYS+probe Ql (Unsp spec) Negative Negative [facility] Determination of erythrocyte mean corpuscular volume (MCV)Ordered By: Albina Burger on 09-04-2023 MCV (RBC) [Entitic vol] 86.3 fL 81-99 [facility] HIV 1 and HIV-2 antibody ass ay with HIV-1 p24 antigen detectionOrdered By: Albina Burger on 09-04-2023 HIV 1+2 Ab+HIV1 p24 Ag IA Ql Non-Reactive Nonreactive [facility] Hematocrit Auto (Bld) [Volum e fraction]Ordered By: Albina Burger on 09-04-2023 Hematocrit (Bld) [Volume fraction] 40.9 % 37-47 [facility] Laboratory - CytologyOrdered By: Albina Burger on 09-04-2023 Engine Research Engineer Cyto stain Nom (Cvx/Vag) [ID] Comment . [facility] Comment on above: Marcie Hickey, [employer] hnologist (ASCP) Laboratory - Hematology and Cell countsOrdered By: Albina Burger on 09-04-2023 Erythrocyte distribution width (RBC) [Entitic vol] 37.8 fL 35.1-43.9 [facility] Erythrocyte distribution width (RBC) [Ratio] 11.9 % 11.6-14.6 [facility] Immature granulocytes/100 WBC (Bld) 0.400 % 0.0-0.9 [facility] Comment on above: IG% - Immature Granu locytes (promyelocytes, myelocytes and metamyelocytes) > 1% indicates that a LEFT SHIFT is Present. MCH (RBC) [Entitic mass] 27.8 pg 27.0-32.0 [facility] Nucleated RBC/100 WBC (Bld) [Ratio] 0 % 0-5 [facility] Laboratory - Microbiology an d Antimicrobial susceptibilityOrdered By: Albina Burger on 09-04-2023 N. gonorrhoeae DNA DENNYS+probe Ql (Unsp spec) Negative Negative [facility] Comment on above: Performed at: =G - L [address] [id number] Director: Ashley Wellington MD, Phone: [phone] Laboratory - Miscellaneous t estsOrdered By: Albina Burger on 09-04-2023 Service comment (Unsp spec) [Interp] Comment . [facility] Comment on above: This liquid based Th inPrep(R) pap test was screened withthe use of an image guided system. Service comment (Unsp spec) [Interp] . . [facility] MCHC Auto (RBC) [Mass/Vol]Or dered By: Albina Burger on 09-04-2023 MCHC (RBC) [Mass/Vol] 32.3 g/dL 32-36 [facility] No Panel InformationOrdered By: Albina Burger on 09-04-2023 Human Papillomavirus Screen Comment . [facility] Comment on above: The HPV DNA reflex c riteria were not met with this specimenresult therefore, no HPV testing was performed.Performed at: [facility] [id number] Director: Ashley Wellington MD, Phone: [phone] Pathology report final diagnosis Narrative Comment . [facility] Comment on above: NEGATIVE FOR INTRAEP ITHELIAL LESION OR MALIGNANCY. Hepatitis B Surface Antigen Non-Reactive Nonreactive [facility] Hepatitis C Antibody Non-Reactive Nonreactive [facility] Comment on above: Non Reactive: < 0.8 Equivocal: >/= 0.8 to < 1.0 Reactive: >/= 1.0The CDC recommends that a reactive/equivocal HCV antibody result be followed up by the HCV Nucleic Acid Amplificationtest ([id number]) Rubella IgG Antibody Reactive Nonreactive [facility] Comment on above: Antibody Results Int erpretation of Immune Status Non Reactive Presumed Non-Immune Equivocal Equivocal Reactive Presumed Immune Platelets bldOrdered By: Rsosi Burger on 09-04-2023 Platelets (Bld) [#/Vol] 303 10*3/uL 150-450 [facility] Serum Treponema species anti body detectionOrdered By: Albina Burger on 09-04-2023 Treponema sp Ab Ql (S) Non-Reactive [facility] EMERGENCY REPORTon [address] [facility] EMERGENCY ROOM REPORT NAME ACCOUNT SEX AGE ADMIT DISCHARGE PT MED. RECORD# NUMBER DATE DATE TYPE BERNADINE, [id number] F 26 04/02/22 04/02/22 3 MARION Berry [id number] ROOM: ER DATE OF : 1995 DICTATING PHYSICIAN: Bobo Spencer CHIEF COMPLAINT/HISTORY OF PRESENT ILLNESS: Patient came in she has had nausea and vomiting. She is . She was actually here Monday with nausea and vomiting. She did have Zofran but just did not seem to work and presents to the emergency department. Denied fever, chills. PAST MEDICAL HISTORY: Unremarkable. PAST SURGICAL HISTORY: Hip surgery. SOCIAL HISTORY: She does not smoke or drink. REVIEW OF SYSTEMS: Ten systems reviewed and negative except mentioned above. PHYSICAL EXAMINATION: VITAL SIGNS: She is afebrile. Pulse 78, respirations 18, blood pressure 114/69. HEENT: Head is normocephalic, atraumatic. Eyes; pupils equal, round, active to light. Extraocular muscles intact. Nares are patent. Throat has adequate oral moisture. Uvula is midline. NECK: Supple without petechiae or rash. HEART: Without murmur. S1 equals S2. No S3 or S4 appreciated. LUNGS: Clear to auscultation bilaterally. No rales, rhonchi or retractions. ABDOMEN: Soft, nontender, nondistended. SKIN: Warm and dry. DIAGNOSTIC DATA: Electrolytes are unremarkable. Urinalysis unremarkable. EMERGENCY DEPARTMENT COURSE AND TREATMENT: She was given 2 L of fluid. She feels much better at this time. DIAGNOSIS: Hyperemesis gravidarum. PLAN/DISPOSITION: She will be discharged in stable condition. She has Zofran at home. Dictated By: Bobo Spencer DO 04/02/22 21:45 JOB #: [id number] Transcribed By: [email or web address] Page 1 of 2 MARION MONSON Emergency Room Report MARION MONSON : 1995 04/03/22 07:55 Electronically signed by: LUIS Spencer DO 04/08/22 07:59 Page 2 of 2 MARION MONSON Emergency Room Report Normal [facility] CBC + DIFFon 04-02-2022 Baso # 0.00 x10EE3/UL Normal 0.00 - 0.10 [facility] Comment on above: Performed By: #### 2 81413 #### [facility],[address] [place] [address] Basophils/100 WBC (Bld) 0.2 % Normal 0.0 - 2.0 [facility] Comment on above: Performed By: #### 2 01085 #### [facility],[address] [place] [address] CBC + DIFF Normal [facility] Comment on above: Result Comment: CBC- COMPLETE BLOOD COUNT Performed By: #### 2 83278 #### [place] [address] EO # 0.00 x10EE3/UL Normal 0.00 - 0.50 [facility] Comment on above: Performed By: #### 2 26700 #### [facility],[address] [place] [address] Eosinophils/100 WBC (Bld) 0.1 % Normal 0.0 - 7.0 [facility] Comment on above: Performed By: #### 2 93100 #### [place] [address] Erythrocyte distribution width (RBC) [Ratio] 13.4 % Normal 12.0 - 15.6 [facility] Comment on above: Performed By: #### 2 11675 #### [place] [address] Hematocrit (Bld) [Volume fraction] 37.4 % Normal 34.0 - 46.0 [facility] Comment on above: Performed By: #### 2 85035 #### [place] [address] Hemoglobin (Bld) [Mass/Vol] 12.8 g/dL Normal 12.0 - 16.0 [facility] Comment on above: Performed By: #### 2 73275 #### [place] [address] Lymph # 0.90 x10EE3/UL Normal 0.80 - 2.80 [facility] Comment on above: Performed By: #### 2 18795 #### [place] [address] Lymphocytes/100 WBC (Bld) 7.3 % Low 20.0 - 45.0 [facility] Comment on above: Performed By: #### 2 61324 #### [facility],[address] [place] [address] MANUAL DIFF N/A Normal [facility] Comment on above: Performed By: #### 2 29544 #### [facility],[address] [place] [address] MCH (RBC) [Entitic mass] 29 pg Normal 27 - 33 [facility] Comment on above: Performed By: #### 2 54478 #### [facility],[address] [place] [address] MCHC 34 X10 3 Normal 32 - 36 [facility] Comment on above: Performed By: #### 2 31531 #### [facility],[address] [place] [address] MCV (RBC) [Entitic vol] 84 fL Normal 80 - 99 [facility] Comment on above: Performed By: #### 2 00176 #### [place] [address] [place] # 0.40 x10EE3/UL Normal 0.20 - 1.00 [facility] Comment on above: Performed By: #### 2 85650 #### [place] [address] MONOS % 3.3 % Normal 0.0 - 10.0 [facility] Comment on above: Performed By: #### 2 90812 #### [facility],[address] [place] [address] Morphology Yoni (Bld) [Interp] N/A Normal [facility] Comment on above: Result Comment: {CD] Performed By: #### 2 04153 #### [place] [address] Neut # 11.40 x10EE3/UL High 1.50 - 7.10 [facility] Comment on above: Performed By: #### 2 78372 #### [place] [address] Neutrophils/100 WBC (Bld) 89.1 % High 46.0 - 76.0 [facility] Comment on above: Performed By: #### 2 72975 #### [facility],[address] [place] [address]7795 PLATELET 272 x10EE3/UL Normal 150 - 450 [facility] Comment on above: Performed By: #### 2 06297 #### [facility],[address] [place] [address] Platelet mean volume (Bld) [Entitic vol] 8.1 fL Normal 6.6 - 10.5 [facility] Comment on above: Result Comment: AUTO MATED DIFFERENTIAL Performed By: #### 2 27236 #### [facility],[address] [place] [address] 81873 RBC 4.43 x 10EE6/UL Normal 4.10 - 5.30 [facility] Comment on above: Performed By: #### 2 61576 #### [facility],[address] [place] [address]394 WBC 12.8 x 10EE3/UL High 4.5 - 10.8 [facility] Comment on above: Performed By: #### 2 65711 #### [facility],[address] [place] [address] 45394 CMP with eGFRon 04-02-2022 AGE 26 years Normal [facility] Comment on above: Performed By: #### 2 78045 #### [facility],[address] [place] [address] 08808 Albumin [Mass/Vol] 3.7 g/dL Normal 3.4 - 5.0 [facility] Comment on above: Performed By: #### 2 76949 #### [facility],[address] [place] [address] 68476 Albumin/Globulin [Mass ratio] 1.0 {ratio} Normal 0.9 - 1.6 [facility] Comment on above: Performed By: #### 2 59640 #### [facility],[address] [place] [address] 86494 ALK PHOS 56 U/L Normal 46 - 116 [facility] Comment on above: Performed By: #### 2 18376 #### [facility],[address] [place] [address] 59618 ALT [Catalytic activity/Vol] 21 U/L Normal 14 - 59 [facility] Comment on above: Performed By: #### 2 99663 #### [facility],[address] [place] [address] 30474 Anion gap [Moles/Vol] 12 mmol/L Normal 10 - 20 [facility] Comment on above: Performed By: #### 2 66558 #### [facility],[address] [place] [address] 39245 AST [Catalytic activity/Vol] 14 U/L Normal 13 - 39 [facility] Comment on above: Performed By: #### 2 42173 #### [facility],[address] [place] [address] 45793 B/C RATIO 11 ratio Normal 0 - 30 [facility] Comment on above: Performed By: #### 2 93885 #### [facility],[address] [place] [address] 13154 Bilirubin [Mass/Vol] 0.2 mg/dL Normal 0.2 - 1.0 [facility] Comment on above: Performed By: #### 2 59991 #### [facility],[address] [place] [address] 16320 Calcium [Mass/Vol] 9.3 mg/dL Normal 8.5 - 10.1 [facility] Comment on above: Performed By: #### 2 58948 #### [facility],[address] [place] [address] 62510 Chloride [Moles/Vol] 100 mmol/L Normal 98 - 107 [facility] Comment on above: Performed By: #### 2 75400 #### [facility],[address] [place] [address]40 CMP with eGFR Normal [facility] Comment on above: Result Comment: COMP REHENSIVE METABOLIC PANEL Performed By: #### 2 90058 #### [facility],[address] [place] [address] 89412 CO2 [Moles/Vol] 25.7 mmol/L Normal 21.0 - 32.0 [facility] Comment on above: Performed By: #### 2 29203 #### [facility],[address] [place], [place] [address] Creatinine [Mass/Vol] 0.55 mg/dL Normal 0.55 - 1.02 [facility] Comment on above: Performed By: #### 2 39731 #### [facility],[address] [place] [address] GFR/1.73 sq M.predicted among non-blacks MDRD (S/P/Bld) [Vol rate/Area] mL/min/{1.73_m2} Normal 60 - 999 [facility] Comment on above: Performed By: #### 2 55378 #### [facility],[address] [place] [address] Result Comment: ACCO RDING TO THE NATIONAL KIDNEY DISEASE EDUCATION PROGRAM(NKDE), A NORMAL eGFR IS A VALUE GREATER THAN OR EQUAL TO 60 ML/MIN/1.73 SQ METERS. CHRONIC KIDNEY DISEASE: <60mL/MIN/1.73 SQ METERS KIDNEY FAILURE: <15mL/MIN/1.73 SQ METERS THIS TEST SHOULD ONLY BE USED FOR PATIENTS 18 YEARS OF AGE AND OLDER. Globulin (S) [Mass/Vol] 3.8 g/dL Normal 1.5 - 3.8 [facility] Comment on above: Performed By: #### 2 39380 #### [facility],[address] [place] [address] Glucose [Mass/Vol] 87 mg/dL Normal 74 - [facility] Comment on above: Performed By: #### 2 76525 #### [facility],[address] [place] [address] 50472 Potassium [Moles/Vol] 4.1 mmol/L Normal 3.5 - 5.1 [facility] Comment on above: Performed By: #### 2 71759 #### [facility],[address] [place] [address] 88812 Protein [Mass/Vol] 7.5 g/dL Normal 6.4 - 8.2 [facility] Comment on above: Performed By: #### 2 87217 #### [facility],[address] [place] [address] 27750 Sodium [Moles/Vol] 134 mmol/L Low 136 - 145 [facility] Comment on above: Performed By: #### 2 20856 #### [facility],[address] [place] [address] 50371 Urea nitrogen [Mass/Vol] 6 mg/dL Low 7 - 18 [facility] Comment on above: Performed By: #### 2 17044 #### [facility],[address] [place] [address] 34556 URINALYSISon 04-02-2022 Bilirubin Ql (U) Negative Normal NORMAL: NEGATIVE [facility] Comment on above: Performed By: #### 2 41783 #### [facility],[address] [place] [address] 08110 Clarity (U) clear Normal NORMAL: CLEAR [facility] Comment on above: Performed By: #### 2 35845 #### [facility],[address] [place] [address] 86509 Color (U) p.yel Normal NORMAL: YELLOW [facility] Comment on above: Performed By: #### 2 84262 #### [facility],[address] [place] [address] 10029 Glucose Ql (U) NORM Normal NORMAL: NORMAL [facility] Comment on above: Performed By: #### 2 65737 #### [facility],[address] [place] [address] 03883 Hemoglobin Ql (U) Negative Normal NORMAL: NEGATIVE [facility] Comment on above: Performed By: #### 2 19697 #### [facility],[address] [place] [address] 62067 Ketone Negative Normal NORMAL: NEGATIVE [facility] Comment on above: Performed By: #### 2 30052 #### [facility],[address] [place] [address] 21394 Leukocytes Negative Normal NORMAL: NEGATIVE [facility] Comment on above: Performed By: #### 2 11335 #### [facility],[address] [place], [place] [id number] Nitrite Ql (U) Negative Normal NORMAL: NEGATIVE [facility] Comment on above: Performed By: #### 2 38725 #### [facility],[address] [place] [address] pH (U) 8 [pH] Normal NORMAL: 5.0-8.0 [facility] Comment on above: Performed By: #### 2 55982 #### [facility],[address] [place] [address] 30281 Protein Ql (U) Negative Normal NORMAL: NEGATIVE [facility] Comment on above: Performed By: #### 2 54333 #### [facility],[address] [place], [place] [id number] Sp [place] 1.010 Normal NORMAL: 1.010-1.030 [facility] Comment on above: Performed By: #### 2 32458 #### [facility],[address] [place], [place] [id number] Specimen Type UNSPECIFIED Normal [facility] Comment on above: Performed By: #### 2 04163 #### [facility],[address] [place], [place] [id number] Urinalysis dipstick W Reflex Microscopic panel (U) NOT INDICATED Normal [facility] Comment on above: Performed By: #### 2 47206 #### [facility],[address] [place] [address] 56522 Urobilinog NORM Normal NORMAL: NORMAL [facility] Comment on above: Performed By: #### 2 82368 #### [facility],[address] [place] [address] 55586 CBC + DIFFon 03-28-2022 Baso # 0.00 x10EE3/UL Normal 0.00 - 0.10 [facility] Comment on above: Performed By: #### 2 92274 #### [facility],[address] [place] [address] 54114 Basophils/100 WBC (Bld) 0.3 % Normal 0.0 - 2.0 [facility] Comment on above: Performed By: #### 2 60136 #### [facility],[address] [place] [address] 91138 CBC + DIFF Normal [facility] Comment on above: Result Comment: CBC- COMPLETE BLOOD COUNT Performed By: #### 2 16763 #### [facility],[address] [place] [address] 33483 EO # 0.00 x10EE3/UL Normal 0.00 - 0.50 [facility] Comment on above: Performed By: #### 2 70669 #### [facility],[address] [place] [address] 63394 Eosinophils/100 WBC (Bld) 0.1 % Normal 0.0 - 7.0 [facility] Comment on above: Performed By: #### 2 89085 #### [facility],[address] [place] [address] 49090 Erythrocyte distribution width (RBC) [Ratio] 13.3 % Normal 12.0 - 15.6 [facility] Comment on above: Performed By: #### 2 81285 #### [facility],[address] [place] [address] 20082 Hematocrit (Bld) [Volume fraction] 36.9 % Normal 34.0 - 46.0 [facility] Comment on above: Performed By: #### 2 47723 #### [facility],[address] [place] [address] Hemoglobin (Bld) [Mass/Vol] 12.4 g/dL Normal 12.0 - 16.0 [facility] Comment on above: Performed By: #### 2 86871 #### [facility],[address] [place] [address] Lymph # 0.90 x10EE3/UL Normal 0.80 - 2.80 [facility] Comment on above: Performed By: #### 2 85380 #### [facility],[address] [place] [address] Lymphocytes/100 WBC (Bld) 7.6 % Low 20.0 - 45.0 [facility] Comment on above: Performed By: #### 2 27996 #### [facility],[address] [place] [address] MANUAL DIFF N/A Normal [facility] Comment on above: Performed By: #### 2 66801 #### [facility],[address] [place] [address] MCH (RBC) [Entitic mass] 28 pg Normal 27 - 33 [facility] Comment on above: Performed By: #### 2 23212 #### [facility],[address] [place] [address] MCHC 34 X10 3 Normal 32 - 36 [facility] Comment on above: Performed By: #### 2 84817 #### [facility],[address] [place], [place] [id number] MCV (RBC) [Entitic vol] 84 fL Normal 80 - 99 [facility] Comment on above: Performed By: #### 2 40512 #### [facility],[address] [place] [address] [place] # 0.40 x10EE3/UL Normal 0.20 - 1.00 [facility] Comment on above: Performed By: #### 2 21411 #### [facility],[address] [place] [address] 03156 MONOS % 3.3 % Normal 0.0 - 10.0 [facility] Comment on above: Performed By: #### 2 67835 #### [facility],[address] [place] [address] Morphology Yoni (Bld) [Interp] N/A Normal [facility] Comment on above: Result Comment: {CD] Performed By: #### 2 70474 #### [facility],[address] [place] [address] Neut # 10.30 x10EE3/UL High 1.50 - 7.10 [facility] Comment on above: Performed By: #### 2 56950 #### [place] [address] Neutrophils/100 WBC (Bld) 88.7 % High 46.0 - 76.0 [facility] Comment on above: Performed By: #### 2 99059 #### [place] [address] PLATELET 266 x10EE3/UL Normal 150 - 450 [facility] Comment on above: Performed By: #### 2 30251 #### [facility],[address] [place] [address] Platelet mean volume (Bld) [Entitic vol] 8.0 fL Normal 6.6 - 10.5 [facility] Comment on above: Result Comment: AUTO MATED DIFFERENTIAL Performed By: #### 2 57239 #### [place] [id number] RBC 4.37 x 10EE6/UL Normal 4.10 - 5.30 [facility] Comment on above: Performed By: #### 2 03989 #### [facility],[address],[place] [address] WBC 11.6 x 10EE3/UL High 4.5 - 10.8 [facility] Comment on above: Performed By: #### 2 41854 #### [facility],[address] [place], [place] [id number] CMP with eGFRon 03-28-2022 AGE 26 years Normal [facility] Comment on above: Performed By: #### 2 32947 #### [facility],[address] [place] [address] Albumin [Mass/Vol] 3.8 g/dL Normal 3.4 - 5.0 [facility] Comment on above: Performed By: #### 2 79201 #### [facility],[address] [place] [address] Albumin/Globulin [Mass ratio] 1.0 {ratio} Normal 0.9 - 1.6 [facility] Comment on above: Performed By: #### 2 35745 #### [facility],[address] [place], [place] [id number] ALK PHOS 60 U/L Normal 46 - 116 [facility] Comment on above: Performed By: #### 2 22560 #### [facility],[address] [place], [place] [id number] ALT [Catalytic activity/Vol] 25 U/L Normal 14 - 59 [facility] Comment on above: Performed By: #### 2 44032 #### [facility],[address] [place], [place] [id number] Anion gap [Moles/Vol] 15 mmol/L Normal 10 - 20 [facility] Comment on above: Performed By: #### 2 18477 #### [facility],[address] [place] [address] 13734 AST [Catalytic activity/Vol] 14 U/L Normal 13 - 39 [facility] Comment on above: Performed By: #### 2 19775 #### [facility],[address] [place], [place] [id number] B/C RATIO 16 ratio Normal 0 - 30 [facility] Comment on above: Performed By: #### 2 78124 #### [facility],[address] [place] [address] 17297 Bilirubin [Mass/Vol] 0.3 mg/dL Normal 0.2 - 1.0 [facility] Comment on above: Performed By: #### 2 26174 #### [facility],[address] [place], [place] [id number] Calcium [Mass/Vol] 8.9 mg/dL Normal 8.5 - 10.1 [facility] Comment on above: Performed By: #### 2 26027 #### [facility],[address] [place] [address] Chloride [Moles/Vol] 100 mmol/L Normal 98 - 107 [facility] Comment on above: Performed By: #### 2 69412 #### [facility],[address] [place], [place] [id number] CMP with eGFR Normal [facility] Comment on above: Result Comment: COMP REHENSIVE METABOLIC PANEL Performed By: #### 2 35126 #### [facility],[address] [place] [address] 04802 CO2 [Moles/Vol] 23.9 mmol/L Normal 21.0 - 32.0 [facility] Comment on above: Performed By: #### 2 68831 #### [facility],[address] [place] [address] 30434 Creatinine [Mass/Vol] 0.61 mg/dL Normal 0.55 - 1.02 [facility] Comment on above: Performed By: #### 2 97142 #### [facility],[address] [place] [address] 00490 GFR/1.73 sq M.predicted among non-blacks MDRD (S/P/Bld) [Vol rate/Area] mL/min/{1.73_m2} Normal 60 - 999 [facility] Comment on above: Performed By: #### 2 67044 #### [facility],[address] [place] [address] 53646 Result Comment: ACCO RDING TO THE NATIONAL KIDNEY DISEASE EDUCATION PROGRAM(NKDE), A NORMAL eGFR IS A VALUE GREATER THAN OR EQUAL TO 60 ML/MIN/1.73 SQ METERS. CHRONIC KIDNEY DISEASE: <60mL/MIN/1.73 SQ METERS KIDNEY FAILURE: <15mL/MIN/1.73 SQ METERS THIS TEST SHOULD ONLY BE USED FOR PATIENTS 18 YEARS OF AGE AND OLDER. Globulin (S) [Mass/Vol] 4.0 g/dL High 1.5 - 3.8 [facility] Comment on above: Performed By: #### 2 70093 #### [facility],[address] [place] [address] 71342 Glucose [Mass/Vol] 109 mg/dL High 74 - 106 [facility] Comment on above: Performed By: #### 2 51727 #### [facility],[address] [place] [address] 95225 Potassium [Moles/Vol] 3.3 mmol/L Low 3.5 - 5.1 [facility] Comment on above: Performed By: #### 2 91753 #### [facility],[address] [place] [address] 26490 Protein [Mass/Vol] 7.8 g/dL Normal 6.4 - 8.2 [facility] Comment on above: Performed By: #### 2 03855 #### [facility],[address] [place] [address] 01519 Sodium [Moles/Vol] 136 mmol/L Normal 136 - 145 [facility] Comment on above: Performed By: #### 2 35672 #### [facility],[address] [place] [address] 76231 Urea nitrogen [Mass/Vol] 10 mg/dL Normal 7 - 18 [facility] Comment on above: Performed By: #### 2 89414 #### [facility],[address] [place] [address] 82477 CORONAVIRUS PCR - [facility] 03-28-2022 SARS-CoV-2 (COVID-19) RNA DENNYS+probe Ql (Unsp spec) Negative Normal NORMAL: NEGATIVE [facility] Comment on above: Performed By: #### 2 43850 #### [facility],[address] [place] [address] 71320 SEND TO IC? NO Normal [facility] Comment on above: Result Comment: RESU LTS FAXED TO INFECTION CONTROL. SARS-CoV-2 THIS TEST IS BEING USED UNDER THE FDA EUA PROCEDURE. THIS ASSAY HAS BEEN VALIDATED IN THE [facility] FOR USE WITH NASOPHARYNGEAL SPECIMENS IN [facility]. INTERPRETIVE DATA LABORATORY TEST RESULTS SHOULD ALWAYS BE CONSIDERED IN THE CONTEXT OF CLINICAL OBSERVATIONS AND EPIDEMIOLOGICAL DATA IN MAKING FINAL DIAGNOSIS AND PATIENT MANAGEMENT DECISIONS. PATIENT MANAGEMENT SHOULD FOLLOW CURRENT CDC GUIDELINES. A POSITIVE TEST RESULT FOR COVID-19 INDICATES THAT RNA FROM SARS-CoV-2 WAS DETECTED, AND THE PATIENT IS INFECTED WITH THE VIRUS AND PRESUMED TO BE CONTAGIOUS. A NEGATIVE TEST RESULT FOR THIS TEST MEANS THAT SARS-CoV-2 RNA WAS NOT PRESENT IN THE SPECIMEN ABOVE THE LIMIT OF DETECTION. HOWEVER, A NEGATVIE RESULT DOES NOT RULE OUT COVID-19 AND SHOULD NOT BE USED THE SOLE BASIS FOR TREATMENT OR PATIENT MANAGEMENT DECISIONS. A NEGATIVE RESULT DOES NOT EXCLUDE THE POSSIBILITY OF COVID-19. WHEN DIAGNOSTIC TESTING IS NEGATIVE, THE POSSIBLILTY OF A FALSE NEGATIVE RESULT SHOULD BE CONSIDERED IN THE CONTEXT OF A PATIENT'S RECENT EXPOSURES AND THE PRESENCE OF CLINICAL SIGNS AND SYMPTOMS CONSISTENT WITH COVID-19. THE POSSIBILITY OF A FALSE NEGATIVE RESULT SHOULD ESPECIALLY BE CONSIDERED IF THE PATIENT'S RECENT EXPOSURES OR CLINICAL PRESENTATION INDICATE THAT COVID-19 IS LIKELY, AND DIAGNOSTIC TESTS FOR OTHER CAUSES OF ILLNESS (e.g., OTHER RESPIRATORY ILLNESS) ARE NEGATIVE. IF COVID-19 IS STILL SUSPECTED BASED ON EXPOSURE HISTORY TOGETHER WITH OTHER CLINICAL FINDINGS, RE-TESTED SHOULD BE CONSIDERED BY HEALTHCARE PROVIDERS IN CONSULTATION WITH PUBLIC HEALTH AUTHORITIES. Performed By: #### 2 67430 #### [facility],[address] [place] [address] 37184 URINALYSISon 03-28-2022 Bilirubin Ql (U) Negative Normal NORMAL: NEGATIVE [facility] Comment on above: Performed By: #### 2 54344 #### [facility],[address] [place] [address] 43408 Clarity (U) clear Normal NORMAL: CLEAR [facility] Comment on above: Performed By: #### 2 27348 #### [facility],[address] [place] [address] 01239 Color (U) rosemary Normal NORMAL: YELLOW [facility] Comment on above: Performed By: #### 2 34223 #### [facility],[address] [place] [address] 37015 Glucose Ql (U) NORM Normal NORMAL: NORMAL [facility] Comment on above: Performed By: #### 2 23651 #### [facility],[address] [place] [address] 10956 Hemoglobin Ql (U) Negative Normal NORMAL: NEGATIVE [facility] Comment on above: Performed By: #### 2 65688 #### [facility],[address] [place] [address] 71339 Ketone 150 Abnormal NORMAL: NEGATIVE [facility] Comment on above: Performed By: #### 2 48337 #### [facility],[address] [place] [address] 11511 Leukocytes Negative Normal NORMAL: NEGATIVE [facility] Comment on above: Performed By: #### 2 22394 #### [facility],[address] [place] [address] 53814 Nitrite Ql (U) Negative Normal NORMAL: NEGATIVE [facility] Comment on above: Performed By: #### 2 73081 #### [facility],[address] [place] [address] 20543 pH (U) 6.5 [pH] Normal NORMAL: 5.0-8.0 [facility] Comment on above: Performed By: #### 2 90683 #### [facility],[address] [place] [address] 48524 Protein Ql (U) 30 Abnormal NORMAL: NEGATIVE [facility] Comment on above: Performed By: #### 2 34358 #### [facility],[address] [place] [address] Sp [place] 1.015 Normal NORMAL: 1.010-1.030 [facility] Comment on above: Performed By: #### 2 23689 #### [facility],[address] [place] [address] Specimen Type UNSPECIFIED Normal [facility] Comment on above: Performed By: #### 2 10768 #### [facility],[address] [place] [address] Urinalysis dipstick W Reflex Microscopic panel (U) NOT INDICATED Normal [facility] Comment on above: Performed By: #### 2 33683 #### [facility],[address] [place] [address] Urobilinog NORM Normal NORMAL: NORMAL [facility] Comment on above: Performed By: #### 2 23612 #### [facility],[address] [place] [address] Vital Signs Date Time Vital Sign Value Performing Clinician Rishabh barron 06-12-2025 14:03-0400 Body height 180.34 cm No Primary Care Physician [facility] 06-12-2025 14:03-0400 Body mass index (BMI) [Ratio] 29 kg/m2 No Primary Care Physician [facility] 06-12-2025 14:03-0400 Body weight 94.6 kg No Primary Care Physician [facility] 06-12-2025 14:03-0400 Diastolic blood pressure 73 mm[Hg] No Primary Care Physician [facility] 06-12-2025 14:03-0400 Systolic blood pressure 121 mm[Hg] No Primary Care Physician [facility] 05-27-2025 13:40-0400 Body height 180.34 cm No Primary Care Physician [facility] 05-27-2025 13:36-0400 Body mass index (BMI) [Ratio] 28.9 kg/m2 No Primary Care Physician [facility] 05-27-2025 13:36-0400 Body weight 94.03 kg No Primary Care Physician [facility] 05-27-2025 13:36-0400 Diastolic blood pressure 72 mm[Hg] No Primary Care Physician [facility] 05-27-2025 13:36-0400 Systolic blood pressure 118 mm[Hg] No Primary Care Physician [facility] 04-28-2025 13:03-0400 Body height 180.34 cm No Primary Care Physician [facility] 04-28-2025 13:03-0400 Body mass index (BMI) [Ratio] 29 kg/m2 No Primary Care Physician [facility] 04-28-2025 13:03-0400 Body weight 94.57 kg No Primary Care Physician [facility] 04-28-2025 13:03-0400 Diastolic blood pressure 72 mm[Hg] No Primary Care Physician [facility] 04-28-2025 13:03-0400 Systolic blood pressure 129 mm[Hg] No Primary Care Physician [facility] 03-27-2025 12:58-0400 Body height 180.34 cm No Primary Care Physician [facility] 03-27-2025 12:58-0400 Body mass index (BMI) [Ratio] 29.5 kg/m2 No Primary Care Physician [facility] 03-27-2025 12:58-0400 Body weight 95.93 kg No Primary Care Physician [facility] 03-27-2025 12:58-0400 Diastolic blood pressure 77 mm[Hg] No Primary Care Physician [facility] 03-27-2025 12:58-0400 Systolic blood pressure 122 mm[Hg] No Primary Care Physician [facility] 01-17-2024 14:17-0400 Body mass index (BMI) [Ratio] 30.7 kg/m2 No Primary Care Physician [facility] 01-17-2024 14:17-0400 Body weight 99.79 kg No Primary Care Physician [facility] 01-17-2024 14:17-0400 Diastolic blood pressure 68 mm[Hg] No Primary Care Physician [facility] 01-17-2024 14:17-0400 Systolic blood pressure 114 mm[Hg] No Primary Care Physician [facility] 12-18-2023 12:19-0400 Body mass index (BMI) [Ratio] 30.6 kg/m2 No Primary Care Physician [facility] 12-18-2023 12:19-0400 Body weight 99.56 kg No Primary Care Physician [facility] 12-18-2023 12:19-0400 Diastolic blood pressure 69 mm[Hg] No Primary Care Physician [facility] 12-18-2023 12:19-0400 Systolic blood pressure 109 mm[Hg] No Primary Care Physician [facility] 11-30-2023 13:57-0400 Body mass index (BMI) [Ratio] 29.4 kg/m2 No Primary Care Physician [facility] 11-30-2023 13:57-0400 Body weight 95.7 kg No Primary Care Physician [facility] 11-30-2023 13:57-0400 Diastolic blood pressure 71 mm[Hg] No Primary Care Physician [facility] 11-30-2023 13:57-0400 Systolic blood pressure 111 mm[Hg] No Primary Care Physician [facility] 10-31-2023 10:21-0500 Body mass index (BMI) [Ratio] 29.7 kg/m2 No Primary Care Physician [facility] 10-31-2023 10:21-0500 Body weight 96.61 kg No Primary Care Physician [facility] 10-31-2023 10:21-0500 Diastolic blood pressure 82 mm[Hg] No Primary Care Physician [facility] 10-31-2023 10:21-0500 Systolic blood pressure 120 mm[Hg] No Primary Care Physician [facility] 10-02-2023 10:42-0500 Diastolic blood pressure 77 mm[Hg] No Primary Care Physician [facility] 10-02-2023 10:42-0500 Systolic blood pressure 130 mm[Hg] No Primary Care Physician [facility] 10-02-2023 10:41-0500 Body weight 99.33 kg No Primary Care Physician [facility] 09-04-2023 09:03-0500 Body mass index (BMI) [Ratio] 30.5 kg/m2 No Primary Care Physician [facility] 09-04-2023 09:03-0500 Body weight 99.45 kg No Primary Care Physician [facility] 09-04-2023 09:03-0500 Diastolic blood pressure 94 mm[Hg] No Primary Care Physician [facility] 09-04-2023 09:03-0500 Systolic blood pressure 132 mm[Hg] No Primary Care Physician [facility] Encounters Encounter Date Encounter Type Care Provider Facility Start: 07-30-2025 ambulatory No Primary Car e Physician Facility:[facility] Start: 07-10-2025 End: 07-10-2025 ambulatory Cassie Su [facility] Start: 07-10-2025 End: 07-10-2025 ambulatory No Primary Care Physician Facility:[facility] Start: 06-12-2025 End: 06-12-[address] Albina Swanson DO -[facility] Work Phone: Start: 06-12-2025 End: 06-12-2025 ambulatory No Primary Care Physician -[facility] Start: 06-12-2025 End: 06-12-2025 ambulatory No Primary Care Physician -[facility] Start: 06-12-2025 End: 06-12-[address] Brielle Deluna MD -[facility] Work Phone: Start: 06-12-2025 End: 06-12-2025 ambulatory Brielle Deluna Facility:[facility] Start: 05-27-2025 End: 05-27-2025 Patient encounter procedure Tamiko ROGERS -[facility] Work Phone: Start: 05-27-2025 End: 05-27-2025 ambulatory No Primary Care Physician -[facility] Start: 04-28-2025 End: 04-28-[address] Brielle Deluna MD -[facility] Work Phone: Start: 04-28-2025 End: 04-28-2025 ambulatory No Primary Care Physician -[facility] Start: 03-27-2025 End: 03-27-2025 Patient encounter procedure Cassie TITUS -[facility] Work Phone: Start: 03-27-2025 End: 03-27-2025 ambulatory No Primary Care Physician -[facility] Start: 03-27-2025 End: 03-27-2025 ambulatory Cassie Georges Facility:[facility] Start: 01-17-2024 End: 01-17-2024 ambulatory No Primary Care Physician [facility] Work Phone: Start: 01-17-2024 End: 01-17-2024 Patient encounter procedure No Primary Care Physician [facility] Work Phone: Start: 12-18-2023 End: 12-18-2023 Patient encounter procedure No Primary Care Physician [facility] Start: 11-30-2023 End: 11-30-2023 Patient encounter procedure No Primary Care Physician [facility] Work Phone: Start: 11-22-2023 End: 11-22-2023 Patient encounter procedure No Primary Care Physician [facility], [facility] Work Phone: Start: 10-31-2023 End: 10-31-2023 Patient encounter procedure No Primary Care Physician [facility] Work Phone: Start: 10-02-2023 End: 10-02-2023 Patient encounter procedure No Primary Care Physician [facility] @ Start: 09-04-2023 End: 09-04-2023 ambulatory No Primary Care Physician [facility] Work Phone: Start: 09-04-2023 End: 09-04-2023 Patient encounter procedure No Primary Care Physician [facility] Start: 09-04-2023 End: 09-04-2023 Patient encounter procedure No Primary Care Physician [facility] Work Phone: Start: 04-02-2022 End: 04-02-2022 Emergency department [facility] B[facility] Start: 03-28-2022 End: 03-28-2022 Emergency department patient visit DR BOBO SPENCER [facility] Procedures Date Procedure Procedure Detail Performing Clinician Start: 06-12-2025 Ultrasonography in f irst trimester No Primary Care Physician Start: 03-27-2025 Urine culture No Primar y Care Physician Start: 03-27-2025 Hepatitis C antibody measurement No Primary Care Physician Comment on above: Reactive: Presumptiv e evidence of antibodies to HCV. Follow CDC recommendations for supplemental testing.Non-Reactive: Antibodies to HCV were not detected; does not exclude the possibility of exposure to HCVReactive Results are presumptive evidence of antibodies to HCV. Follow CDC recommendations for supplemental testing.Order confirmation testing: HCV Quant by PCR testing - HCVPCR #[id number] Non Reactive: < 0.8 Equivocal: >/= 0.8 to < 1.0 Reactive: >/= 1.0The CDC requires that a reactive/equivocal HCV antibody result be sent out for confirmation. HCV Quant by PCR testing. Start: 03-27-2025 Procedure No Primary Care Physician Comment on above: Test Ordered: [id number] TSH Receptor Antibody (TBII)TSH Receptor Antibody (TBII) <0.4 U/L ES Reference Range: .Reference Range:Antibody Titer:<1.0 U/L = Negative1.1 - 1.5 U/L = Equivocal>1.5 U/L = PositivePerformed at: [facility] [employer] [address] [id number] Director: Km Borden MD, Phone: [phone] at: [facility] [id number] Director: Edin Whitman PhD, Phone: [phone] Start: 03-27-2025 Rubella IgG measurement No Primary Care Physician Comment on above: Antibody Result: Int erpretationNon-Reactive: Non- ImmuneReactive: ImmuneThe following results were obtained with the Ele[employer] Rubella IgG assay. Results from assays of other manufacturers cannot be used interchangeably. Start: 03-27-2025 Serologic test for syphilis No Primary Care Physician Start: 11-22-2023 Ultrasonography in f irst trimester No Primary Care Physician Start: 04-02-[address] BOBO SPENCER Comment on above: Result Comment: URIN ALYSIS Performed By: #### 2 [id number] #### [facility],[address] [place] [address] Start: 03-28-[address] BOBO SPENCER Comment on above: Result Comment: URIN ALYSIS Performed By: #### 2 [id number] #### [facility],[address] [place] [address] H/O: section S/P No Pr imary Care Physician H/O: section History of No Primary Care Physician Comment on above: x2, currently pregna nt and planning on rpt cs x2, currently pregna nt and planning on rpt cs w/JV H/O: section History of Cassie Su CNM H/O: section History of Dr. Brielle Deluna MD H/O: section History of Tamiko Mueller PIPE FITTER-C H/O: section History of Dr. Albina Swanson DO Plan of Treatment Date Care Activity Detail Author Start: 06-12-2025 Thyroid stimulating hormone measurement [facility] Start: 03-27-2025 CBC W Auto Different ial panel - Blood [facility] Start: 03-27-2025 Hepatitis C antibody measurement [facility] Start: 03-27-2025 Procedure [facility] Start: 03-27-2025 Rubella IgG measurement [facility] Start: 03-27-2025 Serologic test for syphilis [facility] Start: 03-27-[address] [facility] Start: 03-27-2025 Thyroid stimulating hormone measurement [facility] Start: 03-27-2025 [facility] Start: 09-04-2023 Liquid based cervica l cytology screening [facility] Chlamydia deoxyribon ucleic acid detection [facility] Erythrocyte mean cor puscular volume determination [facility] anatomy study [facility] Hematocrit [Volume F raction] of Blood [facility] Hemoglobin [Mass/volume] in Blood [facility] Hepatitis B virus copeland rface Ag [Presence] in Serum [facility] Leukocytes [#/volume] in Blood [facility] Mean corpuscular hem oglobin concentration determination [facility] Mean corpuscular hem oglobin determination [facility] Neutrophil count [facility] Neutrophil percent d ifferential count [facility] Platelets [#/volume] in Blood [facility] Red blood cell count [facility] Red cell distributio n width determination [facility] Ultrasonography in first trimester [facility] Payers Date Payer Category Payer Self-pay 2025 Unknown [id number] 1995 Unknown [id number] 2.16.84 [id number] 1995 Unknown [id number] 2.16.84 [id number] Unknown [id number] Unknown [facility] PACKAGE PLAN [id number] Unknown [id number] 2.16.8 [id number] Unknown [id number] 2.16.8 [id number] Unknown [id number] 2.16.8 [id number] Unknown [id number] 2.16.8 [id number] Unknown [id number] 2.16.8 [id number] Unknown [id number] 2.16.8 [id number] Unknown [id number] 2.16.8 [id number] Unknown [id number] 2.16.8 [id number] Unknown [id number] 2.16.8 [id number] Social History Date Type Detail Facility Start: 09-04-2023 End: 01-17-2024 Tobacco smoking status NHIS Unknown if ever smoked [facility] Start: 1995 Sex Assigned At Female W [facility] Start: 03-20-2025 Tobacco smoking stat us MIIS Never smoked tobacco (finding) [facility] Sex Female [facility] Clinical Notes 09-04-2023 to 06-16-2025 Note Date & Type Note Facility 06-16-2025 Radiology Diagnostic study note [facility] Imaging Services [address] [place] [address] OB Anatomy w/ Transvaginal MR#: [id number] Acct: [id number] Name: MARION MONSON Rep #: [id number] : 1995 F 29 From: Mariano Lauren MD PCP: Care Physician,No Primary Status: REG CLI Study:OB Anatomy w/ Transvaginal Date of Exam : 06/12/25 Exam# [id number] Ordering Dr: Brielle Hidalgo MD PROCEDURE: OB ANATOMY W/ TRANSVAGINAL 06/12/2025 REASON FOR EXAM: ANATOMY SCAN TECHNIQUE: Procedure Code: USOBANATVAG Modality: US Procedure: OB ANATOMY W/ TRANSVAGINAL FINDINGS The fetus is in breech presentation. cardiac activity is present at 138 bpm. Amniotic fluid maximum vertical pocket measures 5.0 cm, subjectively within normal limits. Estimated weight is 279 grams ? 42 grams, corresponding to the 12th percentile. The biparietal diameter measures 4.4 cm, corresponding to 19 weeks 3 days, 24th percentile. The occipitofrontal diameter measures 5.5 cm, corresponding to 19 weeks 2 days, 35th percentile. The head circumference measures 16.4 cm, corresponding to 19 weeks 1 day, 19th percentile. The abdominal circumference measures 13.2 cm, corresponding to 18 weeks 4 days, 9th percentile. The femur length measures 3.0 cm, corresponding to 19 weeks 1 day, 17th percentile. Composite gestational age by ultrasound is 19 weeks 0 days. Gestational age by LMP is 20 weeks 0 days. Estimated date of delivery by LMP is 10/30/2025. The lateral ventricles are visualized and measure 0.6 cm. The choroid plexus is visualized. The cerebellum is visualized and measures 1.8 cm. The cisterna magna is visualized and measures 0.2 cm. The face, orbits, nose, lips, and profile are visualized. The four-chamber heart is visualized. The diaphragm, stomach, abdominal wall, cord insertion, and three-vessel cord are visualized. Both kidneys and the bladder are visualized. The cervical, thoracic, lumbar, and sacral spine are visualized. The upper and lower extremities are visualized. gender is male. The placenta is posterior, grade 0, within normal limits, without previa. The cervix measures 3.8 cm with closed cervical os. The adnexa are not visualized. US/OB Anatomy w/ Transvaginal IMPRESSION: Single live intrauterine gestation in breech presentation with heart rate of 138 bpm. biometry corresponds to 19 weeks 0 days, concordant with LMP dating at 20 weeks 0 days. Estimated weight 279 grams, 12th percentile. anatomy survey is within normal limits with all major structures visualized, though the exam was somewhat limited by position. Posterior placenta, grade 0, without previa. Amniotic fluid within normal limits. Cervical length 3.8 cm with closed os. Reading Location: [id number] CC: Dr. Brielle Deluna MD; No Primary Care Physician ~ Ladle Cleaner: Signed [facility] 06-12-2025 Progress note [facility] 06-12-2025 Progress note Note Date/Time June 12, 2025 2:38pm [facility] [address] [place] [address], [address] [place] [address] OFFICE VISIT Date of Service: 06/12/25 MR#: [id number] Acct: [id number] Name: MARION MONSON Kristi Rep #: [id number] : 1995 Provider: Dr. Edel Swanson DO Age/Sex: 29/F Location: [facility] Status: Signed Intake Vital Signs 04/28/25 13:03 05/27/25 13:40 06/12/25 14:03 Height 5 ft 11 in 5 ft 11 in 5 ft 11 in Weight: 208 lb 9 oz BMI 29.0 BP 121/73 H Intake Visit Reasons: 19 wk pt requested this day Chief Complaint: 20 wk OB Cable Television Technician Required: No Is patient in pain?: No Allergies bee venom protein (honey bee) (bee stings) Allergy (Verified 06/12/25 14:01) Hives Medications ?Medication ?Instructions ?Recorded ?Confirmed ?Type NK 03/27/25 06/12/25 History Last Menstrual Period: 01/23/25 : No [facility] Medical History Autoimmune disorder care and examination depression Surgical History S/P History of tonsillectomy History of hip surgery Family History Mother Hypertension Mother Diabetes Brother Autism Social History adopted: No household members: spouse and children number of children: 2 current occupational status: unemployed current occupation: [employer] pets and animals: No history of recent travel: [place] ([place]) Smoking Status: Never smoker alcohol intake: current alcohol intake frequency: holidays/special occasions only details: NOT WHILE substance use type: does not use diet: gluten free and lactose free well-balanced diet: about half the time caffeine: No eating out: rarely or never during the past year weight has: remained stable what type of physical activity do you participate in: none kasi/christianity: Christianity seatbelt use: sometimes do you feel safe at home: Yes additional social history: Massimo- Julio César guerra History 3 Elective abortions Hx Para 2 Spontaneous abortions Hx # Term Pregnancies Ectopic pregnancies Hx # Pregnancies Multiple births # of living children 2 Past Pregnancies Del. Date Name GA/Weeks Outcome Route Bth Weight Infant Gen Labor Lgth Anesthesia Del Locatn Provider FOB 09/18/22 Franca Tomas 42 live - full term 9#2oz Female 24 Hr none [facility] Dr. Len Keys 04/04/24 39 live - full term Male sp inal [facility] CHRIS Keys Delivery Date: 09/18/22 Last Updated by: Ana Ibarra Unable to push out. Hip surgery at 13yo. Unable to do vaginal . HPI 19 wk pt requested this day Details: MARION MONSON is a 29 year old who presents for routine OB visit. OB Visit RUBEN Calculator Estimated Delivery Date Method Current WG Current Estimate 10/30/25 LMP (Certain) 20w 0d Other Estimates 10/30/25 Ultrasound #1 20w 0d Expected Delivery Route/Plan repeat c/s Specific Issue/Plans Covid status: [] Flu vaccine: [] Tdap vaccine: [] Rhogam: na LARC form signed: [] Problem list reviewed and updated with the most current plan of care details and appropriate orders placed. Relevant counseling for the gestational age provided. Continue routine care and follow up unless otherwise noted in visit notes/problem list details Initial Weight: 211 lb Date -?-?-?-?-?-?-?-?-?-?-?-?- EGA Weight BP Urine Prot -?-?-?-?-?-?-?-?-?-?-?-?- Glucose FHR FuHt Pres Dilation -?-?-?-?-?-?-?-?-?-?-?-?- Effaced St Visit Note 03/27/25 -?-?-?-?-?-?-?-?-?-?-?-?- 9w 0d 211 lb 8 oz (+8 oz) 122/77 -?-?-?-?-?-?-?-?-?-?-?-?- 165 -?-?-?-?-?-?-?-?-?-?-?-?- KW- CRL 2.26cm a nd cons with dates. declines NIPT 04/28/25 -?-?-?-?-?-?-?-?-?-?-?-?- 13w 4d 208 lb 8 oz (-2 lb 8 oz) 129/72 Negative -?-?-?-?-?-?-?-?-?-?-?-?- Negative 140 -?-?-?-?-?-?-?-?-?-?-?-?- Sm- one episode bleeding no cramping 05/27/25 -?-?-?-?-?-?-?-?-?-?-?-?- 17w 5d 207 lb 5 oz (-3 lb 11 oz) 118/72 Negative -?-?-?-?-?-?-?-?-?-?-?-?- Negative 152 -?-?-?-?-?-?-?-?-?-?-?-?- MH-No VB or cram ping. Feeling flutters. No concerns 06/12/25 -?-?-?-?-?-?-?-?-?-?-?-?- 20w 0d 208 lb 9 oz (-2 lb 7 oz) 121/73 -?-?-?-?-?-?-?-?-?-?-?-?- 145 -?-?-?-?-?-?-?-?-?-?-?-?- JV- no lof, vagi nal bleeding, or cramping. due for 2nd trimester tsh. anatomy scan was done today and pending. patient was 2 min late for appt but not happy that I was late seeing her in the room. ACOG First Trimester First Trimester: Desire for , Alcohol, Tobacco Cessation, Illicit/Recreational Drug/Substance Use, Intimate Partner Violence, Barriers to care, Unstable Housing, Communication Barriers, Environmental/Work Hazards, Anticipated Course of Care, Toxoplasmosis Precations, Use of Any medications, Sexual activity, Exercise, Dental Care, Sauna/Hot tub use, Seat Belt use, Childbirth classes/Hospital facilities, Travel, Indications for Ultrasound and Screening for Aneuploidy; Discussed Second Trimester Second Trimester: Signs and Symptoms of Labor; Discussed Tobacco Cessation, Discussed Depression/Anxiety and Discussed Intimate Partner Violence Third Trimester Third Trimester: Labor support person(s), Immediate Larc, Circumcision preference, Signs and Symptoms of Preeclampsia, Infant Feeding No and Family Medical Leave or Disability Forms; Discussed Depression Coding Level of Care Code OB Routine Diagnoses History of Z98.891 Hypothyroidism, unspecified type E03.9 Hypothyroidism type: unspecified 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 POTS (postural orthostatic tachycardia syndrome) G90.A Supervision of high risk in second trimester O09.92 Trimester: second trimester 20 weeks gestation of Z3A.20 Weeks of gestation: 20 weeks Generalized anxiety disorder with panic attacks F41.1; F41.0 Family history of autism in sibling Z81.8 Assessment and Plan Assessment and Plan (1) History of : Status: Acute Comment: x2, currently and planning on rpt cs w/JV (2) Hypothyroid: Status: Acute Qualifiers: Hypothyroidism type: unspecified Qualified Code(s): E03.9 - Hypothyroidism, unspecified Comment: 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 neg antibodies (3) Sheehans syndrome: Status: Acute Comment: unofficial diagnosis per patient (4) POTS (postural orthostatic tachycardia syndrome): Status: Acute Comment: Pt taking herbal supplements (5) Supervision of high-risk : Status: Acute Qualifiers: Trimester: second trimester Qualified Code(s): O09.92 - Supervision of high risk , unspecified, second trimester Comment: PRR RUBEN 10/30 PC FrancaJoe Massimo (6) : Status: Acute Qualifiers: Weeks of gestation: 20 weeks Qualified Code(s): Z3A.20 - 20 weeks gestation of Comment: NIPT w gender/ carrier - declines (7) Generalized anxiety disorder with panic attacks: Status: Acute Comment: Not on any medication currently (8) Family history of autism in sibling: Status: Acute Comment: brother mild, cousin severe Orders: Orders Thyroid Stim Hormone (TSH) Today E03.9 - Hypothyroidism, unspecified 06/12/25 1443 <Electronically signed by Albina Aly DO> Date _ Albina Swanson DO Cosigner Signature: Date (if applicable) CC: ~ [facility] Work Phone: 1(499) 544-893907-10-2025 Evaluation note* Diagnosis Onset Date Resolution Status Admit Date Family history of autism in sibling acute March 27, 2025 12:52pm Generalized anxiety disorder with panic attacks acute March 27 12:52pm History of acute March 27, 2025 12:52pm Hypothyroid acute March 27 12:52pm POTS (postural orthostatic tachycardia syndrome) acute March 27, 2025 12:52pm acute March 27 12:52pm S/P acute March 27, 2025 12:52pm Sheehans syndrome acute March 272024 12:52pm Supervision of high-risk acute March 27, 2025 12:52pm [facility] Work Phone: 1(208) 774-727707-10-2025 Evaluation note* Diagnosis Onset Date Resolution Status Admit Date Family history of autism in sibling acute March 27, 2025 12:52pm Generalized anxiety disorder with panic attacks acute March 27 12:52pm History of acute March 27, 2025 12:52pm Hypothyroid acute March 27 12:52pm POTS (postural orthostatic tachycardia syndrome) acute March 27, 2025 12:52pm acute March 27 12:52pm S/P acute March 27, 2025 12:52pm Sheehans syndrome acute March 272024 12:52pm Supervision of high-risk acute March 27, 2025 12:52pm Family history of autism in sibling acute April 28 12:49pm Generalized anxiety disorder with panic attacks acute April 28, 2025 12:49pm History of acute 2024 12:49pm Hypothyroid acute April 28, 2025 12:49pm POTS (postural orthostatic tachycardia syndrome) acute April 12:49pm acute April 28, 12:49pm S/P acute April 12:49pm Sheehans syndrome acute April 28, 2025 12:49pm Supervision of high-risk acute April 28 12:49pm [facility] Work Phone: [phone] Evaluation note* Diagnosis Onset Date Resolution Status Admit Date Family history of autism in sibling acute March 27, 2025 12:52pm Generalized anxiety disorder with panic attacks acute March 27 12:52pm History of acute March 27, 2025 12:52pm Hypothyroid acute March 27 12:52pm POTS (postural orthostatic tachycardia syndrome) acute March 27, 2025 12:52pm acute March 27 12:52pm Sheehans syndrome acute March 272024 12:52pm Supervision of high-risk acute March 27, 2025 12:52pm S/P deleted March 27, 2025 12:52pm Family history of autism in sibling acute April 28 12:49pm Generalized anxiety disorder with panic attacks acute April 28, 2025 12:49pm History of acute 2024 12:49pm Hypothyroid acute April 28, 2025 12:49pm POTS (postural orthostatic tachycardia syndrome) acute April 12:49pm acute April 28 025 12:49pm Sheehans syndrome acute April 28, 2025 12:49pm Supervision of high-risk acute April 28 12:49pm S/P deleted April 12:49pm Family history of autism in sibling acute May 27 1:32pm Generalized anxiety disorder with panic attacks acute May 1:32pm History of acute May 1:32pm Hypothyroid acute May 1:32pm POTS (postural orthostatic tachycardia syndrome) acute May 27, 2025 1:32pm acute May 27, 2025 1:32pm Sheehans syndrome acute 2024 1:32pm Supervision of high-risk acute May 27 1:32pm [facility] Work Phone: 1([phone]) 705-790407-10-2025 Evaluation note* Diagnosis Onset Date Resolution Status Admit Date Family history of autism in sibling acute March 27, 2025 12:52pm Generalized anxiety disorder with panic attacks acute March 27 12:52pm History of acute March 27, 2025 12:52pm Hypothyroid acute March 27 12:52pm POTS (postural orthostatic tachycardia syndrome) acute March 27, 2025 12:52pm acute March 27 12:52pm Sheehans syndrome acute March 272024 12:52pm Supervision of high-risk acute March 27, 2025 12:52pm S/P deleted March 27, 2025 12:52pm Family history of autism in sibling acute April 28 12:49pm Generalized anxiety disorder with panic attacks acute April 28, 2025 12:49pm History of acute Augu 2024 12:49pm Hypothyroid acute April 28, 2025 12:49pm POTS (postural orthostatic tachycardia syndrome) acute April 12:49pm acute April 28 025 12:49pm Sheehans syndrome acute April 28, 2025 12:49pm Supervision of high-risk acute April 28 12:49pm S/P deleted April 12:49pm Family history of autism in sibling acute May 27 025 1:32pm Generalized anxiety disorder with panic attacks acute May 1:32pm History of acute May 1:32pm Hypothyroid acute May 1:32pm POTS (postural orthostatic tachycardia syndrome) acute May 27, 2025 1:32pm acute May 27, 2025 1:32pm Sheehans syndrome acute [facility] 2024 1:32pm Supervision of high-risk acute May 27 1:32pm Family history of autism in sibling acute June 12, 2025 1:57pm Generalized anxiety disorder with panic attacks acute May 1:57pm History of acute May 1:57pm Hypothyroid acute May 1:57pm POTS (postural orthostatic tachycardia syndrome) acute June 12, 2025 1:57pm acute May 1:57pm Sheehans syndrome acute [facility] er 2024 1:57pm Supervision of high-risk acute June 12, 2025 1:57pm [facility] Work Phone: 1(547) 507-724707-10-2025 [facility] [address] [place] [address], [address] [place] [address] OFFICE VISIT Date of Service: 03/27/25 MR#: [id number] Acct: [id number] Name: AMRION MONSON Rep #: [id number] : 1995 Provider: DAVID Su Age/Sex: 29/F Location[place] [facility] [place] Status: Signed Intake Vital Signs 05/15/24 10:03 03/27/25 12:58 Height 5 ft 11 in 5 ft 11 in Weight: 211 lb 8 oz BMI 29.5 BP 122/77 H Intake Visit Reasons: *EST* NOB LMP 01/23, RUBEN 10/30 Chief Complaint: New OB Cable Television Technician Required: No Is patient in pain?: No Allergies bee venom protein (honey bee) (bee stings) Allergy (Verified 03/27/25 12:56) Hives Medications ?Medication ?Instructions ?Recorded ?Confirmed ?Type NK 03/27/25 03/27/25 History Last Menstrual Period: 01/23/25 : No Have you fallen in the past year?: No PFSH PFSH Medical History Autoimmune disorder care and examination depression Surgical History S/P History of tonsillectomy History of hip surgery Family History Mother Hypertension Mother Diabetes Brother Autism Social History adopted: No household members: spouse and children number of children: 2 current occupational status: unemployed current occupation: [employer] pets and animals: No history of recent travel: [place] ([place]) Smoking Status: Never smoker alcohol intake: current alcohol intake frequency: holidays/special occasions only details: NOT WHILE substance use type: does not use diet: gluten free and lactose free well-balanced diet: about half the time caffeine: No eating out: rarely or never during the past year weight has: remained stable what type of physical activity do you participate in: none kasi/christianity: Christianity seatbelt use: sometimes do you feel safe at home: Yes additional social history: Massimo- Julio César leather History 3 Elective abortions Hx Para 2 Spontaneous abortions Hx # Term Pregnancies Ectopic pregnancies Hx # Pregnancies Multiple births # of living children 2 Past Pregnancies Del. Date Name GA/Weeks Outcome Route Bth Weight Infant Gen Labor Lgth Anesthesia Del Locatn Provider FOB 09/18/22 Franca Tomas 42 live - full term 9#2oz Female 24 Hr none [facility] Dr. Len Keys 04/04/24 39 live - full term Male sp inal [facility] KurtisV Massimo Delivery Date: 09/18/22 Last Updated by: Ana Ibarra Unable to push out. Hip surgery at 13yo. Unable to do vaginal . HPI *EST* NOB LMP 01/23, RUBEN 10/30 Details: MARION MONSON is a 29 year old who presents for New OB visit. OB Visit RUBEN Calculator Estimated Delivery Date Method Current WG Current Estimate 10/30/25 LMP (Certain) 9w 0d Other Estimates 10/30/25 Ultrasound #1 9w 0d Comments: HIV: Urine Culture: Sequential Screen: NIPT Screen: Estimated Due Date: 10/30/25 Expected Delivery Route/Plan repeat c/s Specific Issue/Plans Covid status: [] Flu vaccine: [] Tdap vaccine: [] Rhogam: [] LARC form signed: [] Problem list reviewed and updated with the most current plan of care details and appropriate ordersplaced. Relevant counseling for the gestational age provided. Continue routine care and follow up unless otherwise noted in visit notes/problem list details Initial Weight: 211 lb Date -?-?-?-?-?-?-?-?-?-?-?-?- EGA Weight BP Urine Prot -?-?-?-?-?-?-?-?-?-?-?-?- Glucose FHR FuHt Pres Dilation -?-?-?-?-?-?-?-?-?-?-?-?- Effaced St Visit Note 03/27/25 -?-?-?-?-?-?-?-?-?-?-?-?- 9w 0d 211 lb 8 oz (+8 oz) 122/77 -?-?-?-?-?-?-?-?-?-?-?-?- 165 -?-?-?-?-?-?-?-?-?-?-?-?- KW- CRL 2.26cm a nd cons with dates. declines NIPT Menstrual History Last Menstrual Period: 01/23/25 Reported LMP: definite Normal amount/duration: No Frequency in days: 28 On hormonal BC at conception: No hCG+: 02/21/25 Antepartum Record Genetic Screening: Congenital Heart Defect: Other, Neural Tube Defect: Other, Hemoglobinopathy Or Carrier: Other, Cystic Fibrosis: Other, Chromosome Abnormality: Other, Brandt-Sachs: Other, Hemophilia: Other, Intellectual Disability/Autism: Patient (Pt's brother), Recurrent Loss/Stillbirth: Other, Other Structural Defect: Other, Other Genetic Disease: Other and Maternal Metabolic Disorder: Other Infection History: Live with someone with TB or Exposed to TB: No, Patient or Partner has history of Genital Herpes: No, Rash or Viral illness since last mentrual period: No, Prior GBS-Infected child: No, History of STD: No, HIV Infection: No, History of Hepatitis: No, Recent travel outside of [place]: No, Concern for hepatitis exposure: No, Varicella immune: Yes (Chickenpox in childhood) and Covid Vaccinated: No Medical History Medical History: Positive: Auto-immune disorder (POTS ) and Depression/ depression and Negative: Diabetes, Hypertension, Heart disease, Kidney disease/UTI, Neurologic/epilepsy, Psychiatric,Hepatitis/liver disease, Varicosities/phlebitis, Thyroid dysfunction, Trauma/domestic violence, History of blood transfusions, D (Rh) Sensitized, Pulmonary (e.g.,TB,Asthma), Seasonal allergies, Drug/latex allergies/reactions, Breast, Pipe Fitter Maintenance surgery, Operations/hospitalizations, Anesthetic complications, History of abnormal pap, Uterine anomaly/heydi, Infertility, Anti-retroviral treatment, Relevant family history and Other ACOG First Trimester First Trimester: Desire for , Alcohol, Tobacco Cessation, Illicit/Recreational Drug/Substance Use, Intimate Partner Violence, Barriers to care, Unstable Housing, Communication Barriers, Environmental/Work Hazards, Anticipated Course of Care, Nurtrition and weight gain, Toxoplasmosis Precations, Use of Any medications, Sexual activity, Exercise, Dental Care, Sauna/Hot tub use, Seat Belt use, Childbirth classes/Hospital facilities, Travel, Indications for Ultrasound and Screening for Aneuploidy; Discussed Second Trimester Second Trimester: Signs and Symptoms of Labor; Discussed Tobacco Cessation, Discussed Depression/Anxiety and Discussed Intimate Partner Violence Third Trimester Third Trimester: Labor support person(s), Immediate Larc, Circumcision preference, Signsand Symptoms of Preeclampsia, Feeding No and Family Medical Leave or Disability Forms; Discussed Depression ROS Const Reports system reviewed and no additional complaints, except as documented, Denies fatigue, Denies headache(s) and Denies lethargy ENT Denies headache(s) Card Reports system reviewed and no additional complaints, except as documented Resp Reports system reviewed and no additional complaints, except as documented GI Reports system reviewed and no additional complaints, except as documented, Denies abdominal pain, Denies constipation, Denies cramping, Denies diarrhea and Denies dyspepsia Reports system reviewed and no additional complaints, except as documented, Denies abnormal vaginalbleeding, Denies difficulty voiding, Denies dyspareunia and Denies dysuria Musc Reports system reviewed and no additional complaints, except as documented Skin/Breast Reports system reviewed and no additional complaints, except as documented Neuro Yes system reviewed and no additional complaints, except as documented and No headache(s) Psych Reports system reviewed and no additional complaints, except as documented, Denies anhedonia and Denies anxiety Endo Reports system reviewed and no additional complaints, except as documented and Denies fatigue Exam Const General: cooperative, healthy appearing and comfortable Neck Neck: normal visual inspection and full ROM Chest Chest palpation & inspection: normal inspection of the chest Breast inspection: normal inspection of the breasts and normal inspection of the axillae Breast palpation: normal palpation of the breasts and normal palpation of the axillae Resp Effort & Inspection: normal respiratory effort and able to speak in complete sentences GI Inspection: normal to inspection Palpation: soft External Female Exam: normal external appearance and normal appearance of the urethra Urethra: normal appearance of the urethra Skin General: no rashes or lesions noted Neuro General: patient alert, patient awake and patient oriented x3 Extrem General: normal to inspection and full ROM Psych Appearance: grossly normal and well kempt Mental Status: mental status grossly normal Mood: congruent mood Affect: normal affect Speech and Movement: speech and movement normal Thought Process: normal Thought Content: normal Coding Level of Care Code OB Routine Diagnoses History of Z98.891 Hypothyroid E03.9 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 POTS (postural orthostatic tachycardia syndrome) G90.A Supervision of high-risk O09.90 9 weeks gestation of Z3A.09 Weeks of gestation: 9 weeks S/P Z98.891 Generalized anxiety disorder with panic attacks F41.1; F41.0 Family history of autism in sibling Z81.8 Assessment and Plan Assessment and Plan (1) History of : Status: Acute Comment: x2, currently and planning on rpt cs (2) Hypothyroid: Status: Acute Comment: 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, 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 (3) Sheehans syndrome: Status: Acute Comment: unofficial diagnosis per patient (4) POTS (postural orthostatic tachycardia syndrome): Status: Acute Comment: Pt taking herbal supplements (5) Supervision of high-risk : Status: Acute Comment: RUBEN 2/ PC Franca, Joe Massimo (6) : Status: Acute Qualifiers: Weeks of gestation: 9 weeks Qualified Code(s): Z3A.09 - 9 weeks gestation of Comment: NIPT w gender/ carrier - declines (7) S/P : Status: Acute (8) Generalized anxiety disorder with panic attacks: Status: Acute Comment: Not on any medication currently (9) Family history of autism in sibling: Status: Acute Comment: brother mild, cousin severe Orders: Orders CBC W/Diff, Automated 03/20/25 E03.9 - Hypothyroidism, unspecified, O09.90 - Supervision of high risk , unspecified, unspecified trimester, Z34.90 - Encounter for supervision of normal , unspecified, unspecified trimester Type & Screen 03/20/25 E03.9 - Hypothyroidism, unspecified, O09.90 - Supervision of high risk , unspecified, unspecified trimester, Z34.90 - Encounter for supervision of normal , unspecified, unspecified trimester Rubella IgG 03/20/25 E03.9 - Hypothyroidism, unspecified, O09.90 - Supervision of high risk , unspecified, unspecified trimester, Z34.90 - Encounter for supervision of normal , unspecified, unspecified trimester Hepatitis C Antibody 03/20/25 E03.9 - Hypothyroidism, unspecified, O09.90 - Supervision of high risk , unspecified, unspecified trimester, Z34.90 - Encounter for supervision of normal , unspecified, unspecified trimester Hepatitis B Surface Antigen 03/20/25 E03.9 - Hypothyroidism, unspecified, O09.90 - Supervision of high risk , unspecified, unspecified trimester, Z34.90 - Encounter for supervision of normalpregnancy, unspecified, unspecified trimester Culture, Urine 03/20/25 E03.9 - Hypothyroidism, unspecified, O09.90 - Supervision of high risk , unspecified, unspecified trimester, Z34.90 - Encounter for supervision of normal , unspecified, unspecified trimester Syphilis Antibodies 03/20/25 E03.9 - Hypothyroidism, unspecified, O09.90 - Supervision of high riskpregnancy, unspecified, unspecified trimester, Z34.90 - Encounter for supervision of normal , unspecified, unspecified trimester Chlamydia/GC DENNYS aptima 03/20/25 E03.9 - Hypothyroidism, unspecified, O09.90 - Supervision of high risk , unspecified, unspecified trimester, Z34.90 - Encounter for supervision of normal , unspecified, unspecified trimester HIV 03/20/25 E03.9 - Hypothyroidism, unspecified, O09.90 - Supervision of high risk , unspecified, unspecified trimester, Z34.90 - Encounter for supervision of normal , unspecified,unspecified trimester Thyroid Stim Hormone (TSH) 03/20/25 E03.9 - Hypothyroidism, unspecified, O09.90 - Supervision of high risk , unspecified, unspecified trimester, Z34.90 - Encounter for supervision of normal , unspecified, unspecified trimester Free T4 03/20/25 E03.9 - Hypothyroidism, unspecified, O09.90 - Supervision of high risk , unspecified, unspecified trimester, Z34.90 - Encounter for supervision of normal , unspecified, unspecified trimester [facility] Misc. 03/20/25 E03.9 - Hypothyroidism, unspecified, O09.90 - Supervision of high risk , unspecified, unspecified trimester, Z34.90 - Encounter for supervision of normal , unspecified, unspecified trimester Comments Comments: Patient oriented to practice and discussed care expectations and screenings. ACOG book offered to patient. Discussed routine and specially indicated labs if needed- patient consents to testing. See problem list details for plan information. Optional screening including maternal carrier screenings, neural tube defect screening, genetic screening options including quad screen, nuchal translucency, sequential screening, and NIPT screening offered to patient and patient chose: denies Clinical Quality Measures Falls Risk Screening/Assistive Devices Have you fallen in the past year?: No 03/27/25 1338 s CNM> Date _ Cassie Veras Signature: Date (if applicable) CC: ~ [facility]12-18-2023 NotePap Smear Specimen AdequacyDeceer 2022 11:59pmComment.Satisfactory for evaluation. No endocervical component is identified.An endocervical component is not commonly seen in the patient.[facility]ACED A#[id number] Bellevue HospitalComment on above: Satisfactory for evaluation. No endocervical component is identified.An endocervical component is not commonly seen in the patient.Evaluation note* Diagnosis Onset Date Resolution Status Autoimmune disorder acute Family history of autism in sibling acute Generalized anxiety disorder with panic attacks acute Hx of depression, currently acute acute with history of section, antepartum acute Supervision of high-risk [facility] Work Phone: Evaluation note* Diagnosis Onset Date Resolution Status Autoimmune disorder acute Family history of autism in sibling acute Generalized anxiety disorder with panic attacks acute Hx of depression, currently acute acute with history of section, antepartum acute Supervision of high-risk acute Autoimmune disorder acute Family history of autism in sibling acute Generalized anxiety disorder with panic attacks acute Hx of depression, currently acute acute with history of section, antepartum acute Supervision of high-risk acute Autoimmune disorder acute Family history of autism in sibling acute Generalized anxiety disorder with panic attacks acute Hx of depression, currently acute acute with history of section, antepartum acute Supervision of high-risk acute Autoimmune disorder acute Family history of autism in sibling acute Generalized anxiety disorder with panic attacks acute Hx of depression, currently acute acute with history of section, antepartum acute Supervision of high-risk acute Autoimmune disorder acute Family history of autism in sibling acute Generalized anxiety disorder with panic attacks acute Hx of depression, currently acute acute with history of section, antepartum acute Supervision of high-risk 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 12:52pm Supervision of high-risk acute March 27, 2025 12:52pm [facility] Work Phone: Progress note Author Cassie Su [facility] Note Date/Time March 27, 2025 1:38 pm [facility] [address], [address] [place] [address] OFFICE VISIT Date of Service: 03/27/25 MR#: [id number] Acct: [id number] Name: MARION MONSON Rep #: [id number] : 1995 Provider: DAVID Su Age/Sex: 29/F Location: [facility] [place] Status: Signed Intake Vital Signs 05/15/24 10:03 03/27/25 12:58 Height 5 ft 11 in 5 ft 11 in Weight: 211 lb 8 oz BMI 29.5 BP 122/77 H Intake Visit Reasons: *EST* NOB LMP 5, RUBEN 10/30 Chief Complaint: New OB Cable Television Technician Required: No Is patient in pain?: No Allergies bee venom protein (honey bee) (bee stings) Allergy (Verified 03/27/25 12:56) Hives Medications ?Medication ?Instructions ?Recorded ?Confirmed ?Type NK 03/27/25 03/27/25 History Last Menstrual Period: 01/23/25 : No Have you fallen in the past year?: No PFSH PFSH Medical History Autoimmune disorder care and examination depression Surgical History S/P History of tonsillectomy History of hip surgery Family History Mother Hypertension Mother Diabetes Brother Autism Social History adopted: No household members: spouse and children number of children: 2 current occupational status: unemployed current occupation: SAHM pets and animals: No history of recent travel: No ([place]) Smoking Status: Never smoker alcohol intake: current alcohol intake frequency: holidays/special occasions only details: NOT WHILE substance use type: does not use diet: gluten free and lactose free well-balanced diet: about half the time caffeine: No eating out: rarely or never during the past year weight has: remained stable what type of physical activity do you participate in: none kasi/christianity: Christianity seatbelt use: sometimes do you feel safe at home: Yes additional social history: Massimo- Julio César guerra History 3 Elective abortions Hx Para 2 Spontaneous abortions Hx # Term Pregnancies Ectopic pregnancies Hx # Pregnancies Multiple births # of living children 2 Past Pregnancies Del. Date Name GA/Weeks Outcome Route Bth Weight Infant Gen Labor Lgth Anesthesia Del Locatn Provider FOB 09/18/22 Franca Tomas 42 live - full term 9#2oz Female 24 Hr none [facility] Dr. Len Keys 04/04/24 39 live - full term Male sp inal [facility] CHRIS Keys Delivery Date: 09/18/22 Last Updated by: Ana Ibarra Unable to push out. Hip surgery at 13yo. Unable to do vaginal . HPI *EST* NOB LMP 01/23, RUBEN 10/30 Details: MARION MONSON is a 29 year old who presents for New OB visit. OB Visit RUBEN Calculator Estimated Delivery Date Method Current WG Current Estimate 10/30/25 LMP (Certain) 9w 0d Other Estimates 10/30/25 Ultrasound #1 9w 0d Comments: HIV: Urine Culture: Sequential Screen: NIPT Screen: Estimated Due Date: 10/30/25 Expected Delivery Route/Plan repeat c/s Specific Issue/Plans Covid status: [] Flu vaccine: [] Tdap vaccine: [] Rhogam: [] LARC form signed: [] Problem list reviewed and updated with the most current plan of care details and appropriate orders placed. Relevant counseling for the gestational age provided. Continue routine care and follow up unless otherwise noted in visit notes/problem list details Initial Weight: 211 lb Date -?-?-?-?-?-?-?-?-?-?-?-?- EGA Weight BP Urine Prot -?-?-?-?-?-?-?-?-?-?-?-?- Glucose FHR FuHt Pres Dilation -?-?-?-?-?-?-?-?-?-?-?-?- Effaced St Visit Note 03/27/25 -?-?-?-?-?-?-?-?-?-?-?-?- 9w 0d 211 lb 8 oz (+8 oz) 122/77 -?-?-?-?-?-?-?-?-?-?-?-?- 165 -?-?-?-?-?-?-?-?-?-?-?-?- KW- CRL 2.26cm a nd cons with dates. declines NIPT Menstrual History Last Menstrual Period: 01/23/25 Reported LMP: definite Normal amount/duration: No Frequency in days: 28 On hormonal BC at conception: No hCG+: 02/21/25 Antepartum Record Genetic Screening: Congenital Heart Defect: Other, Neural Tube Defect: Other, Hemoglobinopathy Or Carrier: Other, Cystic Fibrosis: Other, Chromosome Abnormality: Other, Brandt-Sachs: Other, Hemophilia: Other, Intellectual Disability/Autism: Patient (Pt's brother), Recurrent Loss/Stillbirth: Other, Other Structural Defect: Other, Other Genetic Disease: Other and Maternal Metabolic Disorder: Other Infection History: Live with someone with TB or Exposed to TB: No, Patient or Partner has history of Genital Herpes: No, Rash or Viral illness since last mentrual period: No, Prior GBS-Infected child: No, History of STD: No, HIV Infection: No, History of Hepatitis: No, Recent travel outside of [place]: No, Concern for hepatitis exposure: No, Varicella immune: Yes (Chickenpox in childhood) and Covid Vaccinated: No Medical History Medical History: Positive: Auto-immune disorder (POTS ) and Depression/ depression and Negative: Diabetes, Hypertension, Heart disease, Kidney disease/UTI, Neurologic/epilepsy, Psychiatric, Hepatitis/liver disease, Varicosities/phlebitis, Thyroid dysfunction, Trauma/domestic violence, History of blood transfusions, D (Rh) Sensitized, Pulmonary (e.g.,TB,Asthma), Seasonal allergies, Drug/latex allergies/reactions, Breast, Pipe Fitter Maintenance surgery, Operations/hospitalizations, Anesthetic complications, History of abnormal pap, Uterine anomaly/heydi, Infertility, Anti-retroviral treatment, Relevant family history and Other ACOG First Trimester First Trimester: Desire for , Alcohol, Tobacco Cessation, Illicit/Recreational Drug/Substance Use, Intimate Partner Violence, Barriers to care, Unstable Housing, Communication Barriers, Environmental/Work Hazards, Anticipated Course of Care, Nurtrition and weight gain, Toxoplasmosis Precations, Use of Any medications, Sexual activity, Exercise, Dental Care, Sauna/Hot tub use, Seat Belt use, Childbirth classes/Hospital facilities, Travel, Indications for Ultrasound and Screening for Aneuploidy; Discussed Second Trimester Second Trimester: Signs and Symptoms of Labor; Discussed Tobacco Cessation, Discussed Depression/Anxiety and Discussed Intimate Partner Violence Third Trimester Third Trimester: Labor support person(s), Immediate Larc, Circumcision preference, Signs and Symptoms of Preeclampsia, Infant Feeding No and Family Medical Leave or Disability Forms; Discussed Depression ROS Const Reports system reviewed and no additional complaints, except as documented, Denies fatigue, Denies headache(s) and Denies lethargy ENT Denies headache(s) Card Reports system reviewed and no additional complaints, except as documented Resp Reports system reviewed and no additional complaints, except as documented GI Reports system reviewed and no additional complaints, except as documented, Denies abdominal pain, Denies constipation, Denies cramping, Denies diarrhea and Denies dyspepsia Reports system reviewed and no additional complaints, except as documented, Denies abnormal vaginal bleeding, Denies difficulty voiding, Denies dyspareunia and Denies dysuria Musc Reports system reviewed and no additional complaints, except as documented Skin/Breast Reports system reviewed and no additional complaints, except as documented Neuro Yes system reviewed and no additional complaints, except as documented and No headache(s) Psych Reports system reviewed and no additional complaints, except as documented, Denies anhedonia and Denies anxiety Endo Reports system reviewed and no additional complaints, except as documented and Denies fatigue Exam Const General: cooperative, healthy appearing and comfortable Neck Neck: normal visual inspection and full ROM Chest Chest palpation & inspection: normal inspection of the chest Breast inspection: normal inspection of the breasts and normal inspection of the axillae Breast palpation: normal palpation of the breasts and normal palpation of the axillae Resp Effort & Inspection: normal respiratory effort and able to speak in complete sentences GI Inspection: normal to inspection Palpation: soft External Female Exam: normal external appearance and normal appearance of the urethra Urethra: normal appearance of the urethra Skin General: no rashes or lesions noted Neuro General: patient alert, patient awake and patient oriented x3 Extrem General: normal to inspection and full ROM Psych Appearance: grossly normal and well kempt Mental Status: mental status grossly normal Mood: congruent mood Affect: normal affect Speech and Movement: speech and movement normal Thought Process: normal Thought Content: normal Coding Level of Care Code OB Routine Diagnoses History of Z98.891 Hypothyroid E03.9 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 POTS (postural orthostatic tachycardia syndrome) G90.A Supervision of high-risk O09.90 9 weeks gestation of Z3A.09 Weeks of gestation: 9 weeks S/P Z98.891 Generalized anxiety disorder with panic attacks F41.1; F41.0 Family history of autism in sibling Z81.8 Assessment and Plan Assessment and Plan (1) History of : Status: Acute Comment: x2, currently and planning on rpt cs (2) Hypothyroid: Status: Acute Comment: 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, 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 (3) Sheehans syndrome: Status: Acute Comment: unofficial diagnosis per patient (4) POTS (postural orthostatic tachycardia syndrome): Status: Acute Comment: Pt taking herbal supplements (5) Supervision of high-risk : Status: Acute Comment: RUBEN 10/30 AMADEO Schulte, Joe Massimo (6) : Status: Acute Qualifiers: Weeks of gestation: 9 weeks Qualified Code(s): Z3A.09 - 9 weeks gestation of Comment: NIPT w gender/ carrier - declines (7) S/P : Status: Acute (8) Generalized anxiety disorder with panic attacks: Status: Acute Comment: Not on any medication currently (9) Family history of autism in sibling: Status: Acute Comment: brother mild, cousin severe Orders: Orders CBC W/Diff, Automated 03/20/25 E03.9 - Hypothyroidism, unspecified, O09.90 - Supervision of high risk , unspecified, unspecified trimester, Z34.90 - Encounter for supervision of normal , unspecified, unspecified trimester Type & Screen 03/20/25 E03.9 - Hypothyroidism, unspecified, O09.90 - Supervision of high risk , unspecified, unspecified trimester, Z34.90 - Encounter for supervision of normal , unspecified, unspecified trimester Rubella IgG 03/20/25 E03.9 - Hypothyroidism, unspecified, O09.90 - Supervision of high risk , unspecified, unspecified trimester, Z34.90 - Encounter for supervision of normal , unspecified, unspecified trimester Hepatitis C Antibody 03/20/25 E03.9 - Hypothyroidism, unspecified, O09.90 - Supervision of high risk , unspecified, unspecified trimester, Z34.90 - Encounter for supervision of normal , unspecified, unspecified trimester Hepatitis B Surface Antigen 03/20/25 E03.9 - Hypothyroidism, unspecified, O09.90 - Supervision of high risk , unspecified, unspecified trimester, Z34.90 - Encounter for supervision of normal , unspecified, unspecified trimester Culture, Urine 03/20/25 E03.9 - Hypothyroidism, unspecified, O09.90 - Supervision of high risk , unspecified, unspecified trimester, Z34.90 - Encounter for supervision of normal , unspecified, unspecified trimester Syphilis Antibodies 03/20/25 E03.9 - Hypothyroidism, unspecified, O09.90 - Supervision of high risk , unspecified, unspecified trimester, Z34.90 - Encounter for supervision of normal , unspecified, unspecified trimester Chlamydia/GC DENNYS aptima 03/20/25 E03.9 - Hypothyroidism, unspecified, O09.90 - Supervision of high risk , unspecified, unspecified trimester, Z34.90 - Encounter for supervision of normal , unspecified, unspecified trimester HIV 03/20/25 E03.9 - Hypothyroidism, unspecified, O09.90 - Supervision of high risk , unspecified, unspecified trimester, Z34.90 - Encounter for supervision of normal , unspecified, unspecified trimester Thyroid Stim Hormone (TSH) 03/20/25 E03.9 - Hypothyroidism, unspecified, O09.90 - Supervision of high risk , unspecified, unspecified trimester, Z34.90 - Encounter for supervision of normal , unspecified, unspecified trimester Free T4 03/20/25 E03.9 - Hypothyroidism, unspecified, O09.90 - Supervision of high risk , unspecified, unspecified trimester, Z34.90 - Encounter for supervision of normal , unspecified, unspecified trimester [facility] Misc. 03/20/25 E03.9 - Hypothyroidism, unspecified, O09.90 - Supervision of high risk , unspecified, unspecified trimester, Z34.90 - Encounter for supervision of normal , unspecified, unspecified trimester Comments Comments: Patient oriented to practice and discussed care expectations and screenings. ACOG book offered to patient. Discussed routine and specially indicated labs if needed- patient consents to testing. See problem list details for plan information. Optional screening including maternal carrier screenings, neural tube defect screening, genetic screening options including quad screen, nuchal translucency, sequential screening, and NIPT screening offered to patient and patient chose: denies Clinical Quality Measures Falls Risk Screening/Assistive Devices Have you fallen in the past year?: No 03/27/25 1338 <Electronically signed by Cassie medley CNM> Date _ Cassie Su CNM Cosigner Signature: Date (if applicable) CC: ~ [facility] Work Phone: Reason for referral (narrative)No reason for referral information availableBlSan Dimas Community Hospital Work Phone: Summary Purpose Family History No Family History Records Found Relationship Condition Age at Onset Recorded Date/T letitia mother Hypertension Unknown mother Diabetes mellitus Unknown brother Autistic disorder Unknown Advance Directives No Advanced Directives Records Found Advance Directive Response Recorded Date/ Time Living Will No September 04 023 9:44am Power of Hot Plate [employer] Offbearer No September 04, 2023 9:44am Advance Directive Response Recorded Date/ Time Living Will No January 17, 2024 2: 38pm Power of [employer] Offbearer No January 17, 2024 2:38pm Chief Complaint and Reason for Visit Chief Complaint LMP 07/05 Reason for Visit Autoimmune disorder Family history of autism in sibling Generalized anxiety disorder with panic attacks Hx of depression, currently with history of section, antepartum Supervision of high-risk Chief Complaint 12 WK OB 17 WK OB CERVICAL LENGTH 20 WK OB *c/sec 24 WK OB *c/sec E ORDERS 28 WK OB/GLUCOSE Reason for Visit Autoimmune disorder Family history of autism in sibling Generalized anxiety disorder with panic attacks Hx of depression, currently with history of section, antepartum Supervision of high-risk Autoimmune disorder Family history of autism in sibling Generalized anxiety disorder with panic attacks Hx of depression, currently with history of section, antepartum Supervision of high-risk Autoimmune disorder Family history of autism in sibling Generalized anxiety disorder with panic attacks Hx of depression, currently with history of section, antepartum Supervision of high-risk Autoimmune disorder Family history of autism in sibling Generalized anxiety disorder with panic attacks Hx of depression, currently with history of section, antepartum Supervision of high-risk Autoimmune disorder Family history of autism in sibling Generalized anxiety disorder with panic attacks Hx of depression, currently with history of section, antepartum Supervision of high-risk Chief Complaint Admit Date *EST* NOB LMP 01/23, RUBEN 10/30March 27, 12:52pm Reason for Visit Admit Date Family history of autism in sibling March 27, 2025 12:52pm Generalized anxiety disorder with panic attacks March 27, 2025 12:52pm History of March 27, 2025 12: 52pm Hypothyroid March 27, 2025 12:5 2pm POTS (postural orthostatic tachycardia s yndrome) March 27, 2025 12:52pm March 27, 2025 12:5 2pm S/P March 27, 2025 12:5 2pm Sheehans syndrome March 27, 2025 12:5 2pm Supervision of high-risk March 27, 2025 12:52pm Chief Complaint Admit Date *EST* NOB LMP 5/8, RUBEN 2/12 Charity 10th, 2 025 12:52pm 13wk OB April 28, 2025 12 :49pm Reason for Visit Admit Date Family history of autism in sibling March 27, 2025 12:52pm Generalized anxiety disorder with panic attacks March 27, 2025 12:52pm History of March 27, 2025 12: 52pm Hypothyroid March 27, 2025 12:5 2pm POTS (postural orthostatic tachycardia s yndrome) March 27, 2025 12:52pm March 27, 2025 12:5 2pm S/P March 27, 2025 12:5 2pm Sheehans syndrome March 27, 2025 12:5 2pm Supervision of high-risk March 27, 2025 12:52pm Family history of autism in sibling Augu 2024 12:49pm Generalized anxiety disorder with panic attacks April 28, 2025 12:49pm History of April 28, 2025 1 2:49pm Hypothyroid April 28, 2025 12 :49pm POTS (postural orthostatic tachycardia s yndrome) April 28, 2025 12:49pm April 28, 2025 12 :49pm S/P April 28, 2025 12 :49pm Sheehans syndrome April 28, 2025 12 :49pm Supervision of high-risk Augus 2024 12:49pm Chief Complaint Admit Date *EST* NOB LMP 5/8, RUBEN 10/30March 27, 2 025 12:52pm 13wk OB April 28, 2025 12 :49pm 17 WK OB May 27, 2025 1:32pm Reason for Visit Admit Date Family history of autism in sibling March 27, 2025 12:52pm Generalized anxiety disorder with panic attacks March 27, 2025 12:52pm History of March 27, 2025 12: 52pm Hypothyroid March 27, 2025 12:5 2pm POTS (postural orthostatic tachycardia s yndrome) March 27, 2025 12:52pm March 27, 2025 12:5 2pm Sheehans syndrome March 27, 2025 12:5 2pm Supervision of high-risk March 27, 2025 12:52pm S/P March 27, 2025 12:5 2pm Family history of autism in sibling Aug[place] [facility] 2024 12:49pm Generalized anxiety disorder with panic attacks April 28, 2025 12:49pm History of April 28, 2025 1 2:49pm Hypothyroid April 28, 2025 12 :49pm POTS (postural orthostatic tachycardia s yndrome) April 28, 2025 12:49pm April 28, 2025 12 :49pm Sheehans syndrome April 28, 2025 12 :49pm Supervision of high-risk Augus t 2024 12:49pm S/P April 28, 2025 12 :49pm Family history of autism in sibling Ishaan ember 2024 1:32pm Generalized anxiety disorder with panic attacks May 27, 2025 1:32pm History of May 27, 2025 1:32pm Hypothyroid May 27, 2025 1:32pm POTS (postural orthostatic tachycardia s yndrome) May 27, 2025 1:32pm May 27, 2025 1:32pm Sheehans syndrome May 27, 2025 1:32pm Supervision of high-risk [facility] 2024 1:32pm Chief Complaint Admit Date *EST* NOB LMP 01/23, RUBEN 10/30March 27, 2 025 12:52pm 13wk OB April 28, 2025 12 :49pm 17 WK OB May 27, 2025 1:32pm ANATOMY SCAN June 12, 2025 12:18pm 19 wk pt requested this day June 122024 1:57pm Reason for Visit Admit Date Family history of autism in sibling March 27, 2025 12:52pm Generalized anxiety disorder with panic attacks March 27, 2025 12:52pm History of March 27, 2025 12: 52pm Hypothyroid March 27, 2025 12:5 2pm POTS (postural orthostatic tachycardia s yndrome) March 27, 2025 12:52pm March 27, 2025 12:5 2pm Sheehans syndrome March 27, 2025 12:5 2pm Supervision of high-risk March 27, 2025 12:52pm S/P March 27, 2025 12:5 2pm Family history of autism in sibling [address] 2024 12:49pm Generalized anxiety disorder with panic attacks April 28, 2025 12:49pm History of April 28, 2025 1 2:49pm Hypothyroid April 28, 2025 12 :49pm POTS (postural orthostatic tachycardia s yndrome) April 28, 2025 12:49pm April 28, 2025 12 :49pm Sheehans syndrome April 28, 2025 12 :49pm Supervision of high-risk Augus t 2024 12:49pm S/P April 28, 2025 12 :49pm Family history of autism in sibling Ishaan cotter 2024 1:32pm Generalized anxiety disorder with panic attacks May 27, 2025 1:32pm History of May 27, 2025 1:32pm Hypothyroid May 27, 2025 1:32pm POTS (postural orthostatic tachycardia s yndrome) May 27, 2025 1:32pm May 27, 2025 1:32pm Sheehans syndrome May 27, 2025 1:32pm Supervision of high-risk [facility] 2024 1:32pm Family history of autism in sibling Ishaan meza 2024 1:57pm Generalized anxiety disorder with panic attacks June 12, 2025 1:57pm History of June 12 1:57pm Hypothyroid June 12, 2025 1:57pm POTS (postural orthostatic tachycardia s yndrome) June 12, 2025 1:57pm June 12, 2025 1:57pm Sheehans syndrome June 12, 2025 1:57pm Supervision of high-risk [facility] 2024 1:57pm Additional Source Comments INFORMATION SOURCE (unrecogn ized section and content) DATE CREATED AUTHOR 04/10/[address] [facility] DATE CREATED AUTHOR AUTHOR'S ORGANIZ ATION 07/31/2025 [facility] Care Teams (unrecognized sec tion and content) Team Status: Active Member Role Status Dates No Primary Care Physician Primary Care Provider Active Team Status: Inactive Member Role Status Dates No Primary Care Physician Primary Care Provider, Refer ring Provider Active Dr. Albina Swanson , DO Attending Provider Activ e Team Status: Inactive Member Role Status Dates No Primary Care Physician Primary Care Provider Active Dr. Albina Swanson DO Attending Provider, Refe rring Provider Active Team Status: Inactive Member Role Status Dates No Primary Care Physician Primary Care Provider, Refer ring Provider Active Cassie Su CNM Attending Provider Active Team Status: Inactive Member Role Status Dates No Primary Care Physician Primary Care Provider, Refer ring Provider Active Tamiko Mueller PIPE FITTER, PIPE FITTER-C Attending Provider Active Team Status: Inactive Member Role Status Dates No Primary Care Physician Primary Care Provider, Refer ring Provider Active Dr. Albina Swanson DO Active Dr. Brielle Deluna MD Attending Provider Active Team Status: Inactive Member Role Status Dates No Primary Care Physician Primary Care Provider Active Cassie Su CNM Attending Provider, Referring Pro vider Active Team Status: Inactive Member Role Status Dates No Primary Care Physician Primary Care Provider Active Dr. Brielle Deluna MD Attending Provider, Referr ing Provider Active Team Status: Active Member Role/Relationship Status Dates No Primary Care Physician Primary Care Provider Active Team Status: Inactive Member Role/Relationship Status Dates No Primary Care Physician Primary Care Provider Active Start: March 27, 2025 End: March 27, 2025 No Primary Care Physician Referring Provider Active Start: March 27, 2025 End: March 27, 2025 Cassie Su CNM Attending Provider Active S tart: March 27, 2025 End: March 27, 2025 Team Status: Active Member Role/Relationship Status Dates No Primary Care Physician Primary Care Provider Active Start: March 27, 2025 Cassie Su CNM Attending Provider Active S tart: March 27, 2025 Cassie Su CNM Referring Provider Active S tart: March 27, 2025 Team Status: Inactive Member Role/Relationship Status Dates No Primary Care Physician Primary Care Provider Active Start: March 27, 2025 End: March 27, 2025 Cassie Su CNM Attending Provider Active S tart: March 27, 2025 End: March 27, 2025 Cassie Su CNM Referring Provider Active S tart: March 27, 2025 End: March 27, 2025 Team Status: Inactive Member Role/Relationship Status Dates No Primary Care Physician Primary Care Provider Active Start: April 28, 2025 End: April 28, 2025 No Primary Care Physician Referring Provider Active Start: April 28, 2025 End: April 28, 2025 Dr. Brielle Deluna MD Attending Provider Active Start: April 28, 2025 End: April 28, 2025 Team Status: Inactive Member Role/Relationship Status Dates No Primary Care Physician Primary Care Provider Active Start: May 27, 2025 End: May 27, 2025 No Primary Care Physician Referring Provider Active Start: May 27, 2025 End: May 27, 2025 Tamiko Mueller NP, NP-C Attending Provider Active Start: May 27, 2025 End: May 27, 2025 Team Status: Active Member Role/Relationship Status Dates No Primary Care Physician Primary care physician Activ e Team Status: Inactive Member Role/Relationship Status Dates No Primary Care Physician Primary care physician Activ e Start: March 27, 2025 End: March 27, 2025 No Primary Care Physician Referring Provider Active Start: March 27, 2025 End: March 27, 2025 Cassie Su CNM Attending physician Active Start: March 27, 2025 End: March 27, 2025 Team Status: Inactive Member Role/Relationship Status Dates No Primary Care Physician Primary care physician Activ e Start: March 27, 2025 End: March 27, 2025 Cassie Su CNM Attending physician Active Start: March 27, 2025 End: March 27, 2025 Cassie Su CNM Referring Provider Active S tart: March 27, 2025 End: March 27, 2025 Team Status: Inactive Member Role/Relationship Status Dates No Primary Care Physician Primary care physician Activ e Start: April 28, 2025 End: April 28, 2025 No Primary Care Physician Referring Provider Active Start: April 28, 2025 End: April 28, 2025 Dr. Brielle Deluna MD Attending physician Active Start: April 28, 2025 End: April 28, 2025 Team Status: Inactive Member Role/Relationship Status Dates No Primary Care Physician Primary care physician Activ e Start: May 27, 2025 End: May 27, 2025 No Primary Care Physician Referring Provider Active Start: May 27, 2025 End: May 27, 2025 Tamiko Mueller NP, NP-C Attending physician Active Start: May 27, 2025 End: May 27, 2025 Team Status: Inactive Member Role/Relationship Status Dates No Primary Care Physician Primary care physician Activ e Start: June 12, 2025 End: June 12, 2025 Dr. Brielle Deluna MD Attending physician Active Start: June 12, 2025 End: June 12, 2025 Dr. Brielle Deluna MD Referring Provider Active Start: June 12, 2025 End: June 12, 2025 Team Status: Inactive Member Role/Relationship Status Dates No Primary Care Physician Primary care physician Activ e Start: June 12, 2025 End: June 12, 2025 No Primary Care Physician Referring Provider Active Start: June 12, 2025 End: June 12, 2025 Dr. Albina Swanson DO Attending physician Active Start: May End: June 12, 2025 Goals (unrecognized section and content) Type Care Experience for rpt sec tion Care Experience repeat c/s FOR RECORDS PERTAINING TO PATIENTS WHO ARE OR HAVE BEEN ENROLLED IN A CHEMICAL DEPENDENCY/SUBSTANCEABUSE PROGRAM, SOME INFORMATION MAY BE OMITTED. This clinical summary was aggregated from multiple sources. Caution should be exercised in using it in the provision of clinical care. This summary normalizes information from multiple sources, and as a consequence, information in this document may materially change the coding, format and clinical context of patient data. In addition, data may be omitted in some cases. CLINICAL DECISIONS SHOULD BE BASED ON THE PRIMARY CLINICAL RECORDS. [employer] provides no warranty or guarantee of the accuracy or completeness of information in this document.
== END | disposition home or self-care (01) ==
LOC: BWCLAB 12:02
PROVIDERS: Visit Provider Obstetrics & Gynecology
DX: O09.92 Supervision of high risk pregnancy, unspecified, second trimester (principal); Z3A.00 Weeks of gestation of pregnancy not specified; Z13.1 Encounter for screening for diabetes mellitus
CPT/HCPCS: 36415; 82950; 85025; 86703; 86780